=== PATIENT | male | born 1955 | race Caucasian/White ===

== ENCOUNTER 2024-10-25 13:05 | Outpatient (OUT) | payer MEDICARE, OTHER, SELFPAY ==
--- OUTSIDE RECORDS SUMMARY | 2024-10-15 14:40 | XMS_ITS | Encounter Summary ---
Author Organization [facility] Address [address] [place], [place] [id number] Care Team Providers Care Ballet Professor Name Role Phone Noemi Chu SAMUEL Primary Care Provider [phone] Source Comments In the event this information is protected by the Federal Confidentiality of Alcohol and Drug AbusePatient Records regulations: The Federal rules restrict any use of the information to criminally investigate or prosecute any alcohol or drug abuse patient.[facility] Reason for Visit * Reason Comments Prostate Cancer Anemia 3 month follow up Encounter Details Date Type Department Care Team (Latest Contact Info) Description 10/15/2024 2:40 PM EDT Visit (SP) Office Hematology/Oncology [address] [place], [place] [address] [address] Murali Christie MD [address] [place] [address] [place] [address] Malignant neoplasm of prostate (HCC) (Primary Dx); Iron deficiency anemia due to chronic blood loss; Crohn's disease of small and large intestines with complication (HCC); Esophagitis; Ulcer of ileum; Encounter for antineoplastic chemotherapy and immunotherapy Social History Tobacco Use Types Packs/Day Years Used Date Smoking Tobacco: Former Cigarettes 1 05/13/1979 - 03/13/2000 Smokeless Tobacco: Never Comments:3 cigs a day Alcohol Use Standard Drinks/Week Comments Yes 0 (1 standard drink = 0.6 oz pur e alcohol) occ PHQ-2 Answer Date Recorded PHQ-2 score 0 07/10/2024 Area Deprivation Index Answer Date Rashawn rded National Score (1-100), lower number is lower ri sk 76 09/08/2022 State Score (1-10), lower number is lower risk 6 09/08/2022 Data from: https://www.neighborhoodatlas.[facility]/. Last address used for calculation [address] [facility] 09/08/2022 Sex and Gender Information Value Date Recorded Sex Assigned at Male 08/18/2018 11:09 PM EDT Legal Sex Male 8:56 AM EST Gender Identity Male 08/18/2018 11:09 PM EDT Sexual Orientation Straight 08/18/2018 11 :09 PM EDT documented as of this encounter Last Filed Vital Signs Vital Sign Reading Time Taken Comments Blood Pressure 149/89 10/15/2024 2:56 PM EDT Pulse 75 10/15/2024 2:56 PM EDT Temperature 36.3 C (97.4 F) 10/15/2024 2:56 PM EDT Respiratory Rate 16 10/15/2024 2:56 PM EDT Oxygen Saturation 99% 10/15/2024 2:56 PM EDT Inhaled Oxygen Concentration - - Weight 76.8 kg (169 lb 5 oz) 10/15/2024 2:56 PM EDT Height 170.2 cm (5' 7.01 ) 10/15/2024 2:56 PM ED T Body Mass Index 26.51 10/15/2024 2:56 PM EDT documented in this encounter Functional Status * Are you deaf or do you have serious difficulty hearing? Answer Date of Assessment Author No 03/22/2018 3:03 PM Ibis Max RN * Are you blind or do you have serious difficulty seeing, even when wearing glasses? Answer Date of Assessment Author No 03/22/2018 3:03 PM Ibis Max RN * Do you have serious difficulty walking or climbing stairs? Answer Date of Assessment Author No 03/22/2018 3:03 PM Ibis Max RN * Do you have difficulty dressing or bathing? Answer Date of Assessment Author No 03/22/2018 3:03 PM Ibis Max RN * Because of a physical, mental, or emotional condition, do you have difficulty doing errands alone such as visiting a doctor's office or shopping? Answer Date of Assessment Author No 03/22/2018 3:03 PM Ibis Max RN documented as of this encounter Mental Status * Because of a physical, mental, or emotional condition, do you have serious difficulty concentrating, remembering, or making decisions? Answer Entry Date Author No 03/22/2018 3:03 PM Ibis Max RN documented in this encounter Patient Instructions * Patient Instructions* Murali Christie MD - 10/15/2024 3:23 PM EDT Obtain path and EGD/Coloscopy results from [facility] to call results of PSA Eligard q 6 months - due 10/15/24 RTC in 6 months for [facility] same day We discussed your recent test results and treatment plan: - Your EGD (esophagogastroduodenoscopy) performed on September 16, 2024, showed: - Esophagitis, which was biopsied. - Gastric erythema, which was biopsied. - Duodenal erosions, which were biopsied. - You have been prescribed omeprazole to protect your stomach. Please take this medication as directed. - Your colonoscopy performed the same day showed: - Ulcers in the ileum. We are awaiting further surgical pathology reports for additional information. - The duodenum biopsy showed erosive duodenitis. - The stomach biopsy showed gastric mucosa with mild chronic inflammation. We discussed your prostate cancer treatment: - Your PSA level from July 11 was undetectable (0.02), which is a positive result. - You received your scheduled Lupron (Eligard) injection today. If you experience stomachaches or discomfort from the injection, please discuss alternative injection sites with the nurse during your next visit. We discussed your abdominal and pelvic imaging: - Your CT scan from July 22 showed a stable post-operative appearance of the abdomen and pelvis. Several enlarged lymph nodes in the right lower quadrant were noted but have not substantially changedsince your prior scan in March. Continued follow-up is recommended. Next steps: - Continue taking omeprazole as prescribed. - Follow up with your barrel tester and drainer, Dr. Zamarripa, for ongoing management of your gastrointestinal findings. - Monitor for any new or worsening symptoms and notify our office if needed. - Your next PSA test will be scheduled as part of your ongoing follow-up for prostate cancer. Please let us know if you have any questions or concerns. documented in this encounter Progress Notes * Murali Christie MD - 10/15/2024 3:12 PM EDT Images from the original note were not included. NAME: [facility] NO.: [id number] DATE OF SERVICE: October 15, 2024 (Pratik) Some elements in this clinic note that are critical to medical decision making have been carefully reviewed and included from a prior clinic note dated: July 11, 2024 (Pratik) Referring Provider: Otilia Ackerman MD Additional Clinicians involved [facility]: DIAGNOSIS: Locally Recurrent CSPRCa CASE SUMMARY / ASSESSMENT: 69 year old man GG3 Andreas 7 prostate cancer diagnosed in 2018 with PSA10.38. following radical prostatectomy, had PSA nate in April 2018 but PSA had a steady rise starting in April 2020 and increasing to 0.39 in March 2022. PSMA scan in May 2022 showed very low volume disease in perivesicular/perineal region (left, 0.8 cm). He underwent CAB and Radiationto prostatic bed between June 2022 and late July 2022. He did not maintain a nate for longer than 6 months but only had a gradual rise through August 2023 at 0.03. February 2024 PSA was 0.098 and PSMA scan in March 2024 showed a left internal iliac lymphnode with uptake and otherwise no metastatic disease. Continues on ADT following RT - no additional SBRT given hx of Crohn's. Monitor for iron deficiency SUMMARIZED PLAN OF CARE: Resume oral iron. Obtain path and EGD/Coloscopy results from [facility] to call results of PSA Eligard q 6 months - due 7/1/25 RTC in 6 months for [facility] same day AI Assisted A/P: 1. Malignant neoplasm of prostate (HCC) (C61) Recent CT scan of the abdomen and pelvis on July 22 showed stable post-op appearance with severalenlarged right lower quadrant lymph nodes, unchanged from prior examination in March. PSA level on July 11 was undetectable at 0.02 ng/mL. Continue monitoring PSA levels and follow-up with oncology as needed. 2. Iron deficiency anemia due to chronic blood loss (D50.0) 3. Crohn's disease of small and large intestines with complication (HCC) (K50.819) Colonoscopy on September 16 revealed ulcers in the ileum. Awaiting surgical pathology reports. Follow-up with gastroenterology for further management based on pathology results. 4. Esophagitis (K20.90) EGD on September 16 showed esophagitis, which was biopsied. Started on omeprazole to protect the stomach. 5. Ulcer of ileum (K63.3) Colonoscopy on September 16 revealed ulcers in the ileum. Awaiting surgical pathology reports. Follow-up with gastroenterology for further management based on pathology results. 6. Encounter for antineoplastic chemotherapy and immunotherapy (Z51.11) Receiving Eligard injections for prostate cancer. Patient reports experiencing abdominal pain post-injection. Administer Lupron injection. Discuss alternative injection sites with nursing staff to potentially alleviate abdominal discomfort. CASE HISTORY: Reverse Chronological Order 04/19/2024-Current - Eligard q 6 months 03/22/2024 - PSMA PET: PROSTATE: No PSMA expressing lesion in the prostatectomy bed. RADHA DISEASE: New mildly PSMA expressing subcentimeter left internal iliac lymphadenopathy. METASTATIC DISEASE: No PSMA expressing distant metastases. 02/27/2024 - PSA: 0.098 09/15/2023 - PSA: 0.03 05/31/2023 - PSA: 0.02 02/27/2023 - PSA: 0.03 08/29/2022 - PSA: <0.02 07/04/2022-08/11/2022 - Radiation to prostate bed: Dr. Ackerman 06/14/2022-03/08/2023 - Casodex 50mg daily - discontinued due to ADH withdrawal - One dose of Lupron with urology at [facility] 06/01/2022 - PSMA PET: ABDOMEN/PELVIS: Solitary 0.8 cm intensely avid LEFT perivesicular/perineal lesion, as described. Notracer avid abdominopelvic lymphadenopathy. HEAD/NECK, CHEST, & BONES/SOFT TISSUES: No PSMA-expressing lesion suspicious for metastasis. 04/12/2022 - PSA: 0.39 09/06/2021 - PSA: 0.23 06/24/2021 - NM Bone Scan: No evidence to suggest osseous metastatic disease. 2021 - PSA: 0.22 05/04/2020 - PSA: 0.06 04/15/2019 - PSA: <0.01 04/26/2018 - PSA: <0.03 03/20/2018 - Prostate and seminal vesicles, radical prostatectomy: Dr. French Garcia - Adenocarcinoma of the prostate, Andreas score 4+3=7 (Grade Group 3) with intraductal carcinoma ofthe prostate. - Tumor is confined to the prostate. - Margins of resection are positive for tumor. - Seminal vesicles are negative for tumor. 12/29/2017 - Prostate Biopsies: Prostate, right base, right mid, right apex, left base, biopsy (A, B, C, D): - Benign prostate tissue. Prostate, left mid, biopsy (E): - Prostatic adenocarcinoma, Sunray score 3+3=6, Grade Group 1, involving one of two cores (20%, 2 mm). Prostate, left apex, biopsy (F): - Benign fibromuscular stroma, no prostatic glands are present for evaluation. Comment: PIN cocktail staining is performed on part E and shows absence of p63, a basal cell marker. P504s shows diffuse positive staining. This immunoprofile, along with the histologic findings, supports the above diagnosis. 12/29/2017 - MRI Prostate: 1.6 cm left anterolateral peripheral zone lesion is concerning for clinically significant disease (PI-RADS 5). No lymphadenopathy. 08/18/2017 - PSA: 10.36 05/02/2012 - TURP: Dr. Navneet Soto at [facility] for elevated PSA Prostate gland, transurethral resection: Stromal and glandular hyperplasia HPI: Updated Visit, October 15, 2024: On 07/22/2024, a CT scan of the abdomen and pelvis revealed several enlarged right lower quadrant lymph nodes. On 09/16/2024, an EGD performed at [facility] showed esophagitis, gastric erythema, and duodenal erosions, all of which were biopsied. The patient was subsequently started on omeprazole.A colonoscopy performed the same day revealed ileal ulcers. Surgical pathology reports indicated erosive duodenitis and gastric mucosa with mild chronic inflammation. On 10/11/2024, a follow-up CT scan of the abdomen and pelvis showed a stable post-operative appearance with no substantial changes in the enlarged right lower quadrant lymph nodes compared to the prior examination in March. On 07/11/2025, a PSA test showed undetectable levels. Patient reports experiencing stomachaches following Lupron injections and inquires about alternative injection sites. Updated Visit, July 11, 2024: Yehuda returns for a follow up. He started Eligard on 04/19/2024, reports GI side effects followinghis first dose. Radiation is being reconsidered as he already has a history of lower pelvic radiation and Crohn's disease. PSA is in process - can consider adding Casodex or Abiraterone for progression. MCV & MCH are decreased - will continue to monitor for iron & folate deficiencies. Initial Visit, April 11, 2024: Yehuda Kearney presents today for a Hematology and Oncology evaluation. He is joined by his , Elsy. Yehuda is a 68 year old male who was diagnosed with prostate adenocarcinoma in 12/2017. He had a prostatectomy in 03/2018 - Sunray score 4+3=7 and Grade Group 3. His annual PSA began slowly rising in 2020 and a solitary left perivesicular/perineal lesion was seen on PSMA PET in 05/2022. He received 1 Lupron injection and started on Casodex & radiation to the prostate bed per Dr. Ackerman. He discontinued Casodex in 02/2023 due to ADH withdrawal. He had another PSMA PET earlier this month as his PSA continues to rise - showed new subcentimeter left internal iliac lymphadenopathy. He is in agreement to begin Eligard and proceed with additional radiation per Dr. Ackerman's recommendation. PMHx of Crohn's disease - has ileostomy. REVIEW OF SYSTEMS Per HPI and otherwise negative by full review of organ systems. Gastrointestinal: (+) abdominal pain ECOG PERFORMANCE STATUS: 0 PHYSICAL EXAMINATION: Vitals: BP 149/89 Pulse 75 Temp (Src) 97.4 (Temporal) Resp 16 Ht 5' 7.008 (1.70m) Wt 169lb 5 oz (76.8kg) SpO2 99% BMI 26.51 kg/(m^2). Body surface area is 1.91 meters squared. Exam limited to gross visualization where appropriate. Gen.: This is an age-appropriate patient in no acute distress. Head: Appears atraumatic with no visible lesions. Eyes: Pupils equally round and reactive to light, extraocular muscles are intact. Neck: Supple. Respiratory: Appears to be respiring comfortably. Neurologic: Nonfocal to gross visualization. Alert and oriented ??3. Psychiatric: No evidence of inappropriate anxiety or depression. Skin: Visible areas of skin without rash, lesions, wounds or petechiae. ALLERGIES: ALLERGIES No Known Allergies MEDICATIONS: ferrous sulfate 325 mg (65 mg iron) tablet atorvastatin (LIPITOR) 10 mg tablet Take 10 mg by mouth once daily. citalopram (CELEXA) 20 mg tablet Take 20 mg by mouth once daily. MULTIVITAMIN ORAL Take 1 tablet by mouth once daily. omeprazole (PRILOSEC) 20 mg capsule Take 20 mg by mouth as needed. Magnesium 250 mg tab Take 250 mg by mouth once daily. omega 3-gak-gab-fish oil 100-160-1,000 mg cap Take by mouth once daily. aspirin (ASPIR-81 ORAL) Take by mouth once daily. Cholecalciferol, Vitamin D3, 50 mcg (2,000 unit) cap Take by mouth once daily. meloxicam (MOBIC) 15 mg tablet Take 1 tablet by mouth once daily. LABORATORY VALUES: WBC (k/uL) Date Value 10/15/2024 6.25 RBC (m/uL) Date Value 10/15/2024 4.89 Hemoglobin (g/dL) Date Value 10/15/2024 13.9 Hematocrit (%) Date Value 10/15/2024 42.3 MCV (fL) Date Value 10/15/2024 86.5 MCH (pg) Date Value 10/15/2024 28.4 MCHC (g/dL) Date Value 10/15/2024 32.9 RDW-CV (%) Date Value 10/15/2024 15.5 (H) Platelet Count (k/uL) Date Value 10/15/2024 211 MPV (fL) Date Value 10/15/2024 10.5 Glucose (mg/dL) Date Value 10/15/2024 90 BUN (mg/dL) Date Value 10/15/2024 14 Creatinine (mg/dL) Date Value 10/15/2024 1.03 Sodium (mmol/L) Date Value 10/15/2024 142 Potassium (mmol/L) Date Value 10/15/2024 4.4 Chloride (mmol/L) Date Value 10/15/2024 108 (H) CO2 (mmol/L) Date Value 10/15/2024 24 Protein, Total (g/dL) Date Value 10/15/2024 6.6 Albumin (g/dL) Date Value 10/15/2024 3.8 (L) Calcium, Total (mg/dL) Date Value 10/15/2024 9.8 Alkaline Phosphatase (U/L) Date Value 10/15/2024 72 Bilirubin, Total (mg/dL) Date Value 10/15/2024 0.2 AST (U/L) Date Value 10/15/2024 24 ALT (U/L) Date Value 10/15/2024 21 PSA (ng/mL) Date Value 10/15/2024 <0.02 07/11/2024 <0.02 04/26/2018 <0.03 PSA. (no units) Date Value 02/27/2024 0.098 09/15/2023 0.03 05/31/2023 0.02 02/27/2023 0.03 08/29/2022 <0.02 DIAGNOSIS: (C61) Malignant neoplasm of prostate (HCC) (primary encounter diagnosis) Plan: COMPLETE BLOOD COUNT AND DIFFERENTIAL, COMPREHENSIVE METABOLIC PANEL, IRON AND TIBC, FERRITIN, VITAMIN B12, FOLATE, SERUM, PROSTATE-SPECIFIC ANTIGEN DIAGNOSTIC, RETICULOCYTE COUNT (D50.0) Iron deficiency anemia due to chronic blood loss Plan: COMPLETE BLOOD COUNT AND DIFFERENTIAL, COMPREHENSIVE METABOLIC PANEL, IRON AND TIBC, FERRITIN, VITAMIN B12, FOLATE, SERUM, PROSTATE-SPECIFIC ANTIGEN DIAGNOSTIC, RETICULOCYTE COUNT (K50.819) Crohn's disease of small and large intestines with complication (HCC) Plan: COMPLETE BLOOD COUNT AND DIFFERENTIAL, COMPREHENSIVE METABOLIC PANEL, IRON AND TIBC, FERRITIN, VITAMIN B12, FOLATE, SERUM, PROSTATE-SPECIFIC ANTIGEN DIAGNOSTIC, RETICULOCYTE COUNT (K20.90) Esophagitis (K63.3) Ulcer of ileum (Z51.11, Z51.12) Encounter for antineoplastic chemotherapy and immunotherapy PAST MEDICAL HISTORY Diagnosis Date Anal fissure 1995 Crohn disease (HCC) s/p surgery Hyperlipidemia Hypertension Prostate cancer (HCC) PAST SURGICAL HISTORY Procedure Laterality Date COLONOSCOPY FLX DX W/COLLJ SPEC WHEN PFRMD 2000 c scope in ileostomy site due to closure of anus in 1995 PAST SURGICAL HISTORY OF total colectomy + ileostomy (1988,1990, 1995 RADICAL PROSTATECTOMY 03/20/2018 robotic perineal approach Social History Tobacco Use Smoking status: Former Current packs/day: 0.00 Types: Cigarettes Start date: 03/13/1980 Quit date: 03/13/2000 Years since quittin.6 Smokeless tobacco: Never Tobacco comments: 3 cigs a day Vaping Use Vaping status: Never Used Substance Use Topics Alcohol use: Yes Comment: occ Drug use: Not Currently FAMILY HISTORY Problem Relation Age of Onset Ischemic Heart Disease Father hx aortic aneurysm Coronary Artery Disease Father Hypertension Father Hypertension Mother I spent a total of 30 minutes on the date of the service which included preparing to see the patient, xfks-go-boch patient care, completing clinical documentation, obtaining and/or reviewing separately obtained history, performing a medically appropriate examination, counseling and educating the pat ient/family/caregiver, ordering medications, tests, or procedures, communicating with other HCPs (not separately reported), independently interpreting results (not separately reported), communicatingresults to the patient/family/caregiver, and care coordination (not separately reported). Murali Christie MD, CPE Hematology and Oncology Services Provided at: [place], [place] CC: Noemi Chu CNP, LADLE REPAIRER [address] [address] documented in this encounter Plan of Treatment Upcoming Encounters Date Type Department Care Team (Latest Contact Info) Description 01/29/2025 11:45 AM EDT Office Visit Radiation Oncology [address] [place] [address] Mohsen Ackerman MD [address] [place] [address] 6 month follow up 04/14/2025 2:30 PM EST Office Visit [facility] [address] [place] [place] [address] 6 month follow up with lab and Eligard inj 04/14/2025 2:40 PM EST Visit (SP) Office Hematology/Oncology [address] [place] [place] [address] Murali Christie MD [address] [place] [place] [address] 6 month follow up with lab and Eligard inj 04/14/2025 3:00 PM EST [facility] Hematology/Oncology [address] [place] [address] [place] [address] 6 month follow up with lab and Eligard inj Scheduled Orders Name Type Priority Associated Diagnoses Orde r Schedule COMPLETE BLOOD COUNT AND DIFFERENTIAL Lab Routine Malignant neoplasm of prostate (HCC) Iron deficiency anemia due to chronic blood loss Crohn's disease of small and large intestines with complication (HCC) Expected: 04/17/2025 (Approximate), Expires: 10/15/2025 COMPREHENSIVE METABOLIC PANEL Lab Routine Malignant neoplasm of prostate (HCC) Iron deficiency anemia due to chronic blood loss Crohn's disease of small and large intestines with complication (HCC) Expected: 04/17/2025 (Approximate), Expires: 10/15/2025 IRON AND TIBC Lab Routine Malignant neoplasm of prostate (HCC) Iron deficiency anemia due to chronic blood loss Crohn's disease of small and large intestines with complication (HCC) Expected: 04/17/2025 (Approximate), Expires: 10/15/2025 FERRITIN Lab Routine Malignant neoplasm of prostate (HCC) Iron deficiency anemia due to chronic blood loss Crohn's disease of small and large intestines with complication (HCC) Expected: 04/17/2025 (Approximate), Expires: 10/15/2025 VITAMIN B12 Lab Routine Malignant neoplasm of prostate (HCC) Iron deficiency anemia due to chronic blood loss Crohn's disease of small and large intestines with complication (HCC) Expected: 04/17/2025 (Approximate), Expires: 10/15/2025 FOLATE, SERUM Lab Routine Malignant neoplasm of prostate (HCC) Iron deficiency anemia due to chronic blood loss Crohn's disease of small and large intestines with complication (HCC) Expected: 04/17/2025 (Approximate), Expires: 10/15/2025 PROSTATE-SPECIFIC ANTIGEN DIAGNOSTIC Lab Routine Malignant neoplasm of prostate (HCC) Iron deficiency anemia due to chronic blood loss Crohn's disease of small and large intestines with complication (HCC) Expected: 04/17/2025 (Approximate), Expires: 07/17/2025 RETICULOCYTE COUNT Lab Routine Malignant neoplasm of prostate (HCC) Iron deficiency anemia due to chronic blood loss Crohn's disease of small and large intestines with complication (HCC) Expected: 04/17/2025 (Approximate), Expires: 07/17/2025 documented as of this encounter Visit Diagnoses Diagnosis Malignant neoplasm of prostate (HCC)- Primary Malignant neoplasm of prostate Iron deficiency anemia due to chronic blood loss Iron deficiency anemia secondary to blood loss (chronic) Crohn's disease of small and large intestines with complication (HCC) Esophagitis Esophagitis, unspecified Ulcer of ileum Ulceration of intestine Encounter for antineoplastic chemotherapy and immunotherapy Encounter for antineoplastic chemotherapy documented in this encounter Care Teams Ballet Professor Relationship Specialty Start Date End Date Noemi Chu CNP [address] [facility] [address] [place] [address] PCP - General Family Medicine 11/10/17 documented as of this encounter
--- OUTSIDE RECORDS SUMMARY | 2024-10-15 15:00 | XMS_ITS | Encounter Summary ---
Author Organization [facility] Address [address] [place], [place] [id number] Care Team Providers Care Obgyn Hospitalist Physician Name Role Phone Noemi Chu SAMUEL Primary Care Provider [phone] Source Comments In the event this information is protected by the Federal Confidentiality of Alcohol and Drug AbusePatient Records regulations: The Federal rules restrict any use of the information to criminally investigate or prosecute any alcohol or drug abuse patient.[facility] Reason for Visit * Martin Prior Authorization (Routine) - Authorized Specialty Diagnoses / Procedures Referred By Contkatie t Referred To Contact Diagnoses Malignant neoplasm of prostate (HCC) Murali Christie MD [address] [place] [address] [place] [address] Phone: tel: fax: Hematology/Oncology [address] [place], [place] [address] [address] Phone: tel: fax: Referral ID Status Reason Start Date Expiration Date V isits Requested Visits Authorized [id number] Authorized 04/11/2024 07/10/2024 99 99 Encounter Details Date Type Department Care Team (Latest Contact Info) Description 10/15/2024 3:00 PM EDT Infusion Center Hematology/Oncology [address] [facility] [place] [address] Malignant neoplasm of prostate (HCC) (Primary Dx) Social History Tobacco Use Types Packs/Day Years [...] is lower risk 6 09/08/2022 Data from: https://www.neighborhoodatlas.medicine.[facility]/. Last address used for calculation [address] [place] [address] 09/08/2022 Sex and Gender Information Value Date Recorded Sex Assigned at Male 08/18/2018 11:09 PM EDT Legal Sex Male 8:56 AM EST Gender Identity Male 08/18/2018 11:09 PM EDT Sexual Orientation Straight 08/18/2018 11 :09 PM EDT documented as of this encounter Functional Status * Are you [...] Assessment Author No 03/22/2018 3:03 PM Ibis Max, GUANAKO * Do you have difficulty dressing or [...] Entry Date Author No 03/22/2018 3:03 PM EST Ibis Luong RN documented in this encounter Plan of Treatment Upcoming Encounters Date Type Department Care Team (Latest Contact Info) Description 01/29/2025 11:45 AM EDT Office Visit Radiation Oncology [address] [place] [address] [place] [address] Mohsen Ackerman MD [address] [place] [address] [place] [address] 6 month follow up 04/14/2025 2:30 PM EST Office Visit [facility] [address] [place] [address] [place] [address] 6 month follow up with lab and Eligard inj 04/14/2025 2:40 PM EST Visit (SP) Office Hematology/Oncology [address] [place] [address] [place] [address] Murali Christie MD [address] [place] [address] [place] [address] 6 month follow up with lab and Eligard inj 04/14/2025 3:00 PM EST [facility] Hematology/Oncology [address] [place] [address] [place] [address] 6 month follow up with lab and Eligard inj documented as of this encounter Visit Diagnoses Diagnosis Malignant neoplasm of prostate (HCC)- Primary Malignant neoplasm of prostate documented in this encounter Administered Medications Inactive Administered Medications - up to 3 most recent administrations Medication Order MAR Action Action Date Dose Rate Site leuprolide 45 mg injection (ELIGARD) 45 mg, SUBCUTANEOUS, ONCE, 1 dose, On Mon10/15/24 at 1530, Hazardous Chemotherapy Drug: Use appropriate PPE.Indications:Malignant neoplasm of prostate (HCC) Given 10/15/2024 3:32 PM EDT 45 mg Buttocks, Left documented in this encounter Care Teams Obgyn Hospitalist Physician Relationship Specialty Start Date End Date Noemi Chu CNP [address] [place] [address] PCP - General Family Medicine 11/10/17 documented as of this encounter
--- OUTSIDE RECORDS SUMMARY | 2024-10-25 13:07 | XMS_ITS | Encounter Summary ---
Author Organization [facility] Address [address] [facility] [place] [address] Care Team Providers Care Journeyman Mechanic Name Role Phone Alba, Sekou Connolly DO Primary Care Provider No Miller AUTOMATION ENGINEERING TECHNICIAN Unavailable [phone] Encounter Details Date Type Department Care Team (Late st Contact Info) Description 12/02/2022 Abstract [facility] [address] [place] [phone] Noemi Chu NP [address] [address] Social History Tobacco Use Types Packs/Day Years Used Date Smoking Tobacco: Never Assessed Sex and Gender Information Value Date Recorded Sex Assigned at Male 02/21/2023 3:45 PM EST Legal Sex Male 6:34 PM EDT Gender Identity Male 02/21/2023 3:45 PM EST Sexual Orientation Straight 02/21/2023 3: 45 PM EST documented as of this encounter Plan of Treatment Upcoming Encounters Date Type Department Care Team (Late st Contact Info) Description 02/18/2025 11:20 AM EST Office Visit [facility] [address] [facility] [address] [place] [phone] Vandana Banuelos MD, IBCLC [address] [place], [place] [id number] documented as of this encounter Visit Diagnoses Not on filedocumented in this encounter Care Teams Journeyman Mechanic Relationship Specialty Start Date End Date Sekou Willis DO [address] [place] [address] PCP - General Family Medicine 08/23/22 No Miller, ZANE [address] [place], [place] [id number] PCP - ACO Reach 04/17/24 documented as of this encounter
--- OUTSIDE RECORDS SUMMARY | 2024-10-25 13:07 | XMS_ITS | Encounter Summary ---
Author Organization [facility] Address [facility] [place] [address] Care Team Providers Care Gift Basket Packer Name Role Phone Noemi Chu SAMUEL Primary Care Provider [phone] Source Comments In the event this information is protected by the Federal Confidentiality of Alcohol and Drug AbusePatient Records regulations: The Federal rules restrict any use of the information to criminally investigate or prosecute any alcohol or drug abuse patient.[facility] Encounter Details Date Type Department Care Team (Late st Contact Info) Description 12/23/2017 Patient Msg Medical Records [address] [place] [address] Provider, Ccf RE: Patient Registration Completed Social History Tobacco Use Types Packs/Day Years Used Date Smoking Tobacco: Former Smokeless Tobacco: Never Alcohol Use Standard Drinks/Week Comments No 0 (1 standard drink = 0.6 oz pur e alcohol) Sex and Gender Information Value Date Recorded Sex Assigned at Male 08/18/2018 11:09 PM EDT Legal Sex Male 8:56 AM EST Gender Identity Male 08/18/2018 11:09 PM EDT Sexual Orientation Straight 08/18/2018 11 :09 PM EDT documented as of this encounter Plan of Treatment Upcoming Encounters Date Type Department Care Team (Latest Contact Info) Description 01/29/2025 11:45 AM EDT Office Visit Radiation Oncology [address] [facility] [place] [address] Mohsen Ackerman MD [address] [facility] [place] [place] [address] 6 month follow up 04/14/2025 2:30 PM EST Office Visit [facility] Laboratory [address] [facility] [place] [place] [address] 6 month follow up with lab and Eligard inj 04/14/2025 2:40 PM EST Visit (SP) Office Hematology/Oncology [address] [facility] [place] [place] [address] Murali Christie MD [address] [facility] [place] [place] [address] 6 month follow up with lab and Eligard inj 04/14/2025 3:00 PM EST [facility] Center Hematology/Oncology [address] [place] [address] [place] [address] 6 month follow up with lab and Eligard inj documented as of this encounter Visit Diagnoses Not on filedocumented in this encounter Care Teams Gift Basket Packer Relationship Specialty Start Date End Date Noemi Chu CNP [address] [place] [address] PCP - General Family Medicine 11/10/17 documented as of this encounter
--- OUTSIDE RECORDS SUMMARY | 2024-10-25 13:07 | XMS_ITS | Encounter Summary ---
Author Organization [facility] Address [facility] [place] [address] Care Team Providers Care Lithographic Retoucher Apprentice Name Role Phone Noemi Chu SAMUEL Primary Care Provider [phone] Source Comments In the event this information is protected by the Federal Confidentiality of Alcohol and Drug AbusePatient Records regulations: The Federal rules restrict any use of the information to criminally investigate or prosecute any alcohol or drug abuse patient.[facility] Encounter Details Date Type Department Care Team (Late st Contact Info) Description 12/26/2017 Patient Msg [facility] [address] [place] [id number] Bernice, Joan, DANIEL pre procedure instructions Social History Tobacco Use Types Packs/Day Years [...] AM EDT Office Visit Radiation Oncology [address] [place] [address] Mohsen Ackerman MD [address] [place] [address] [place] [address] 6 month follow up 04/14/2025 2:30 PM EST Office Visit [facility] [address] [place] [address] [place] [address] 6 month follow up with lab and Eligard inj 04/14/2025 2:40 PM EST Visit (SP) Office Hematology/Oncology [address] [place] [address] [place] [address] Murali Christie MD [address] [place] [address] [place] [address] 6 month follow up with lab and Eligard inj 04/14/2025 3:00 PM EST Infusion Center Hematology/Oncology [address] [place] [address] [place] [address] 6 month follow up with lab and Eligard inj documented as of this encounter Visit Diagnoses Not on filedocumented in this encounter Care Teams Lithographic Retoucher Apprentice Relationship Specialty Start Date End Date Noemi Chu CNP [address] [place] [address] PCP - General Family Medicine 11/10/17 documented as of this encounter
--- OUTSIDE RECORDS SUMMARY | 2024-10-25 13:07 | XMS_ITS | Encounter Summary ---
Author Organization [facility] Address [address] [place] [address] Care Team Providers Care Coach Name Role Phone Noemi Chu SAMUEL Primary Care Provider [phone] Source Comments In the event this information is protected by the Federal Confidentiality of Alcohol and Drug AbusePatient Records regulations: The Federal rules restrict any use of the information to criminally investigate or prosecute any alcohol or drug abuse patient.[facility] Encounter Details Date Type Department Care Team (Late st Contact Info) Description 01/30/2018 Get Medical Advice Urology [address] [address] French Garcia MD [address] [facility] [address] [place] [address] RE: Medication Question (Not Renewal) Social History Tobacco Use Types Packs/Day Years [...] 11:45 AM EDT Office Visit Radiation Oncology [address] [place] [address] [place] [address] Mohsen Ackerman MD [address] [place] [address] [place] [address] 6 month follow up 04/14/2025 2:30 PM EST Office Visit [facility] [address] [place] [address] [place] [address] 6 month follow up with lab and Eligard inj 04/14/2025 2:40 PM EST Visit (SP) Office Hematology/Oncology [address] [place] [address] [place] [address] Murali Christie MD [address] [place] [address] [place] [address] 6 month follow up with lab and Eligard inj 04/14/2025 3:00 PM EST Infusion Center Hematology/Oncology [address] [place] [address] [place] [address] 6 month follow up with lab and Eligard inj documented as of this encounter Visit Diagnoses Not on filedocumented in this encounter Care Teams Coach Relationship Specialty Start Date End Date Noemi Chu CNP [address] [place] [address] PCP - General Family Medicine 11/10/17 documented as of this encounter
--- OUTSIDE RECORDS SUMMARY | 2024-10-25 13:07 | XMS_ITS | Encounter Summary ---
Author Organization [facility] Address [facility] [place] [address] Care Team Providers Care Clinical Quality Manager Name Role Phone Noemi Chu SAMUEL Primary Care Provider [phone] Source Comments In the event this information is protected by the Federal Confidentiality of Alcohol and Drug AbusePatient Records regulations: The Federal rules restrict any use of the information to criminally investigate or prosecute any alcohol or drug abuse patient.[facility] Encounter Details Date Type Department Care Team (Late Contact Info) Description 02/08/2018 Patient Msg Medical Records [address] [place] [address] Provider, Ccf RE: Patient Registration Completed Social [...] AM EDT Office Visit Radiation Oncology [address] [facility] [address] Mohsen Ackerman MD [address] [facility] [address] 6 month follow up 04/14/2025 2:30 PM EST Office Visit [facility] Laboratory [address] [facility] [address] 6 month follow up with lab and Eligard inj 04/14/2025 2:40 PM EST Visit (SP) Office Hematology/Oncology [address] [facility] [address] Murali Christie MD [address] [facility] [address] 6 month follow up with lab and Eligard inj 04/14/2025 3:00 PM EST [facility] Hematology/Oncology [address] [place] [address] [place] [address] 6 month follow up with lab and Eligard inj documented as of this encounter Visit Diagnoses Not on filedocumented in this encounter Care Teams Clinical Quality Manager Relationship Specialty Start Date End Date Noemi Chu CNP [address] [place] [address] PCP - General Family Medicine 11/10/17 documented as of this encounter
--- OUTSIDE RECORDS SUMMARY | 2024-10-25 13:07 | XMS_ITS | Encounter Summary ---
Author Organization [facility] Address [address] [place] [address] Care Team Providers Care Coil Cutter Name Role Phone Sekou Willis DO Primary Care Provider [phone] No Miller CLOSING SPECIALIST Unavailable [phone] Encounter Details Date Type Department Care Team (Late st Contact Info) Description 03/17/2023 Clinisync Result Encounter [facility] External Department Unsolicited No Miller, CLOSING SPECIALIST [address] [place] [id number] Social History Tobacco Use Types Packs/Day Years Used Date Smoking Tobacco: Former Cigarettes Smokeless Tobacco: Never Comments:Smoker x 20 years b ut only smoked 3 cigs a day. Quit over 20 years ago Alcohol Use Standard Drinks/Week Comments Yes 2 (1 standard drink = 0.6 oz pure alcohol) Now 2 cans a week but lately been drinking NA Humiliation, Afraid, Rape, and Kick questionnair e Answer Date Recorded Within the last year, have y ou been afraid of your partner or ex-partner? No 02/21/2023 Within the last year, have y ou been humiliated or emotionally abused in other ways by your partner or ex-partner? No Within the last year, have y ou been kicked, hit, slapped, or otherwise physically hurt by your partner or ex-partner? No 02/21/2023 Within the last year, have y ou been raped or forced to have any kind of sexual activity by your partner or ex-partner? No 02/21/2023 Social Connection and Isolat ion Panel [NHANES] Answer Date Recorded In a typical week, how many times do you talk on the phone with family, friends, or neighbors? Never 02/21/2023 How often do you get togethe r with friends or relatives? Once a week 02/21/2023 How often do you attend chur or sikhism services? More than 4 times per year 02/21/2023 Do you belong to any clubs o r organizations such as scientologist groups, unions, fraternal or athletic groups, or school groups? No 02/21/2023 How often do you attend meet ings of the clubs or organizations you belong to? Never 02/21/2023 Are you , , di vorced, , never , or living with a partner? 02/21/2023 AUDIT-C Answer Date Recorded Q1: How often do you have a drink containing alc ohol? Monthly or less 02/21/2023 Q2: How many drinks containi ng alcohol do you have on a typical day when you are drinking? 1 or 2 02/21/2023 Q3: How often do you have si x or more drinks on one occasion? Never 02/21/2023 Overall Financial Resource Strain (CARDIA) Answe r Date Recorded How hard is it for you to pa y for the very basics like food, housing, medical care, and heating? Not hard at all 02/21/2023 PHQ-2 Answer Date Recorded Patient Health Questionnaire-2 Score 0 03/15/2023 [facility] Questionnaire Answer Date Recorded Do you feel stress - tense, restless, nervous, or anxious, or unable to sleep at night because your mind is troubled all the time - these days? Not at all 02/21/2023 Exercise Vital Sign Answer Date Recorde d On average, how many days pe r week do you engage in moderate to strenuous exercise (like a brisk walk)? 2 days 02/21/2023 On average, how many minutes do you engage in exercise at this level? 30 min 02/21/2023 Hunger Vital Sign Answer Date Recorded Within the past 12 months, y ou worried that your food would run out before you got the money to buy more. Never true 02/22/20 23 Within the past 12 months, t he food you bought just didn't last and you didn't have money to get more. Never true 02/21/2023 PRAPARE - Transportation Answer Date Re corded In the past 12 months, has l ack of transportation kept you from medical appointments or from getting medications? No 10/2022 In the past 12 months, has l ack of transportation kept you from meetings, work, or from getting things needed for daily living? No 02/21/2023 Housing Stability Vital Sign Answer Khai e Recorded In the last 12 months, was t here a time when you were not able to pay the mortgage or rent on time? No 02/21/2023 In the last 12 months, how many places have you lived? 1 02/21/2023 In the last 12 months, was t here a time when you did not have a steady place to sleep or slept in a snf (including now)? No 02/21/2023 Sex and Gender Information Value Date Recorded Sex Assigned at Male 02/21/2023 3:45 PM EST Legal Sex Male 6:34 PM EDT Gender Identity Male 02/21/2023 3:45 PM EST Sexual Orientation Straight 02/21/2023 3: 45 PM EST COVID-19 Exposure Response Date Recorded In the last 10 days, have yo u been in contact with someone who was confirmed or suspected to have Coronavirus/COVID-19? Yes 02/21/2023 4:22 PM EST documented as of this encounter Plan of Treatment Upcoming Encounters Date Type Department Care Team (Late st Contact Info) Description 02/18/2025 11:20 AM EST Office Visit [facility] [address] [place] [phone] Vandana Banuelos MD, IBCLC [address] [place] [address] documented as of this encounter Procedures Procedure Name Priority Date/Time Associated Diagnosis Comments XR CHEST (2 VW) 03/17/2023 11:22 AM EST documented in this encounter Results * XR CHEST (2 VW) (03/17/2023 11:22 AM EST) Anatomical Region Laterality Modality Other 03/17/2023 11:2 2 AM EST Narrative 03/17/2023 11:27 AM EST EXAMINATION: TWO XRAY VIEWS OF THE CHEST 03/16/2023 12:17 pm COMPARISON: 04/12/2018 HISTORY: ORDERING SYSTEM PROVIDED HISTORY: Welcome to Medicare preventive visit FINDINGS: The lungs are without acute focal process. There is no effusion or pneumothorax. The cardiomediastinal silhouette is stable. The osseous structures are stable. IMPRESSION: No acute process. Interpreted by: Sekou Sandoval MD Signed by: Sekou Sandoval MD 03/17/23 Final result Procedure Note Radiology, Radiologist, MD - 03/17/2023 EXAMINATION: TWO XRAY VIEWS OF THE CHEST 03/16/2023 12:17 pm COMPARISON: 04/12/2018 HISTORY: ORDERING SYSTEM PROVIDED HISTORY: Welcome to Medicare preventive visit FINDINGS: The lungs are without acute focal process. There is no effusion or pneumothorax. The cardiomediastinal silhouette is stable. The osseous structures are stable. IMPRESSION: No acute process. Interpreted by: Sekou Sandoval MD Signed by: Sekou Sandoval MD 03/17/23 Final result No Miller NP [facility] Final Re sult documented in this encounter Visit Diagnoses Not on filedocumented in this encounter Additional Health Concerns Assessment Noted Time PHQ-9 Depression Total Score: 0 03/15/20 23 1:00 PM EST documented as of this encounter Care Teams Coil Cutter Relationship Specialty Start Date End Date Sekou Willis DO [address] [place] [address] PCP - General Family Medicine 08/23/22 No Miller, ZANE [address] [place] [address] PCP - ACO Reach 04/17/24 documented as of this encounter
--- OUTSIDE RECORDS SUMMARY | 2024-10-25 13:07 | XMS_ITS | Encounter Summary ---
Author Organization [facility] Address [address] [place] [address] Care Team Providers Care External Grinder Tool Name Role Phone Noemi Chu ASMUEL Primary Care Provider [phone] Source Comments In the event this information is protected by the Federal Confidentiality of Alcohol and Drug AbusePatient Records regulations: The Federal rules restrict any use of the information to criminally investigate or prosecute any alcohol or drug abuse patient.[facility] Encounter Details Date Type Department Care Team (Late st Contact Info) Description 10/31/2019 Patient Msg Colorectal Surgery [address] [place] [address] Provider, Ccf CTE Results Social History Tobacco Use Types Packs/Day Years Used Date Smoking Tobacco: Former Cigarettes 1 05/13/1979 - 03/13/2000 Smokeless Tobacco: Never Comments:3 cigs a day Alcohol Use Standard Drinks/Week Comments Yes 0 (1 standard drink = 0.6 oz pur e alcohol) occ PHQ-2 Answer Date Recorded PHQ2 Score 0 03/20/2018 Sex and Gender Information Value Date Recorded [...] Ibis Max RN documented in this encounter Plan of Treatment Upcoming Encounters Date Type Department Care Team (Latest Contact Info) Description 01/29/2025 11:45 AM EDT Office Visit Radiation Oncology [address] [facility] [place] [address] Mohsen Ackerman MD [address] [place] [address] 6 month follow up 04/14/2025 2:30 PM EST Office Visit [facility] Laboratory [address] [place] [address] 6 month follow up with Pat hanson 04/14/2025 2:40 PM EST Visit (SP) Office Hematology/Oncology [address] [facility] [place] [address] Murali Christie MD [facility] [place] [address] 6 month follow up with lab and Marlon inj 04/14/2025 3:00 PM [facility] Hematology/Oncology [address] [facility] [place] [address] 6 month follow up with lab and Marlon inj documented as of this encounter Visit Diagnoses Not on filedocumented in this encounter Care Teams External Grinder Tool Relationship Specialty Start Date End Date Noemi Chu CNP [address] [place] [address] PCP - General Family Medicine 11/10/17 documented as of this encounter
--- OUTSIDE RECORDS SUMMARY | 2024-10-25 13:07 | XMS_ITS | Clinical Summary ---
Author Organization [facility] Address [address] [place] [address] Care Team Providers Care Last Greaser Name Role Phone adalgisaNoemi APRN - EVICTION SPECIALIST Primary Care Provider [phone] Allergies No known active allergies Medications lisinopril-hydro chlorothiazide (PRINZIDE;ZESTOR ETIC) 10-12.5 MG per tablet Take 1 tablet by mouth daily. Active omeprazole (PRILOSEC) 20 MG capsule Take 20 mg by mouth daily. Active Multiple Vitamins-Mineral s (THERAPEUTIC MULTIVITAMIN-MIN ERALS) tablet Take 1 tablet by mouth daily. Active atorvastatin (LIPITOR) 10 MG tablet Take 10 mg by mouth daily Active magnesium gluconate (MAGONATE) 500 MG tablet Take 250 mg by mouth daily Active citalopram (CELEXA) 10 MG tablet Take 10 mg by mouth daily Active meloxicam (MOBIC) 15 MG tablet Take 15 mg by mouth daily Active Arminto-3 Fatty Acids (FISH OIL) 1000 MG CAPS Take 3,000 mg by mouth daily Active aspirin 81 MG tablet Take 81 mg by mouth daily Active Active Problems Problem Noted Date Diagnosed Date Prostate cancer 04/13/2018 Overview (04/13/2018): Prostatectomy 03/20/18 Dr. French Garcia Adenocarcinoma Andreas 4+3 Ntjty-re-jijkier kidney injury 04/13/2018 Severe sepsis 04/13/2018 Arterial hypotension 04/12/2018 Septicemia 04/12/2018 Severe dehydration 04/12/2018 Hypotension 04/12/2018 History of prostate surgery 04/12/2018 Crohn's disease Resolved Problems Problem Noted Date Diagnosed Date Resolved Date UTI (urinary tract infection ) unable to determine if recent mckeon or procedure causitive 04/13/2018 05/13/2018 Immunizations Immunization Administration Dates Next Due Influenza, Quadv, 6 mo and o lder, IM, PF (Flulaval, Fluarix) 04/14/2018 Family History Medical History Relation Name Comments Heart Disease Father Relation Name Status Comments Father Social History Tobacco Use Types Packs/Day Years Used Date Smoking Tobacco: Former Cigarettes Q uit: 03/20/2006 Smokeless Tobacco: Never Alcohol Use Standard Drinks/Week Comments No 0 (1 standard drink = 0.6 oz pur e alcohol) Sex and Gender Information Value Date Recorded Sex Assigned at Not on file Legal Sex Male 12:17 PM EST Gender Identity Not on file Sexual Orientation Not on file Last Filed Vital Signs Vital Sign Reading Time Taken Comments Blood Pressure 126/77 04/14/2018 8:04 AM EST Pulse 64 04/14/2018 8:04 AM EST Temperature 36.2 C (97.1 F) 04/14/2018 8:04 AM EST Respiratory Rate 16 04/14/2018 8:04 AM EST Oxygen Saturation 100% 04/14/2018 8:04 AM EST Inhaled Oxygen Concentration - - Weight 69.9 kg (154 lb) 04/14/2018 12:15 AM EST Height 170.2 cm (5' 7 ) 04/12/2018 7:27 PM EST Body Mass Index 24.12 04/12/2018 7:27 PM EST Plan of Treatment Health Maintenance Due Date Last Done Comments Depression Screen 1969 Hepatitis C screen 1975 Colonoscopy 2002 Colorectal Cancer Screen 2002 FIT/FOBT: Average risk 2002 Fecal-DNA (Cologuard): Average risk 2002 Sigmoidoscopy/CT colonography 2002 Shingles vaccine (1 of 2) 2007 Prostate Specific Antigen (PSA) Screening or Monitoring 05/11/2016 05/11/2015 AAA screen 2022 Pneumococcal 50+ years Vaccine (2 of 2 - PCV) 02/23/2023 02/23/2022 Annual Wellness Visit (Medicare) 03/16/2023 COVID-19 Vaccine (3 - season) 2023 03/26/2021, 07/23/2020, 06/26/2020, Additional history exists A1C test (Diabetic or Prediabetic) 03/16/2024 03/16/2023 GFR test (Diabetes, CKD 3-4, OR last GFR 15-59) 03/16/2024 03/16/2023, 10/24/2019, 04/14/2018, Additional history exists Lipids 03/16/2024 03/16/2023, 07/09/2011 Flu vaccine (#1) 11/15/2024 02/22/2023, 12/2021, 03/26/2021, Additional history exists DTaP/Tdap/Td vaccine (3 - Td or Tdap) 11/02/2031 11/01/2021, 03/14/2010 Respiratory Syncytial Virus (RSV) or age 60 yrs+ (1 - 1-dose 75+ series) 2032 Pneumococcal 0-49 years Vaccine Discontinued 02/23/2022 Hepatitis A vaccine Aged Out No longe r eligible based on patient's age to complete this topic Hepatitis B vaccine Aged Out No longe r eligible based on patient's age to complete this topic Hib vaccine Aged Out No longer eligi ble based on patient's age to complete this topic Meningococcal (ACWY) vaccine Aged Out No longer eligible based on patient's age to complete this topic Meningococcal B vaccine Aged Out No l onger eligible based on patient's age to complete this topic Polio vaccine Aged Out No longer elig ible based on patient's age to complete this topic Procedures Procedure Name Priority Date/Time Associated Diagnosis Comments COMPREHENSIVE METABOLIC PANEL Routine 03/16/2023 12:03 PM EST LIPID PANEL Routine 03/16/2023 12:03 PM EST HEMOGLOBIN A1C Routine 03/16/2023 12:03 PM EST PSA, FREE Routine 05/11/2015 10:49 AM EST from Last 3 Months or Most Recently Relevant to Health Maintenance Results * Hemoglobin A1C (03/16/2023 12:03 PM EST) Hemoglobin A1C 5.9 4.0 - 6.0 % 03/16/2023 12:03 PM EST [employer] Estimated Avg Glucose 123 mg/dL 03/16/2023 12:03 PM EST [employer] Comment: The ADA and AACC recommend providing the estimated average glucose result to permit better patient understanding of their HBA1c result. 03/16/2023 12:0 3 PM EST 03/16/2023 12:04 PM EST No Miller YOUTH SERVICES LIBRARIAN - EVICTION SPECIALIST CHEMISTRY ORDERABLE S Final Result [facility] [address] [place] [address], [facility] [phone] [facility] [address] [place] [address], [facility] [phone] * (ABNORMAL) Lipid Panel (03/16/2023 12:03 PM EST) Cholesterol 188 0 - 199 mg/dL 03/16/2023 12:03 PM EST [employer] Comment: Cholesterol Guidelines: <200 Desirable 200-240 Borderline >240 Undesirable HDL 40(L) >40 mg/dL 03/16/2023 12:03 PM [employer] Comment: HDL Guidelines: <40 Undesirable 40-59 Borderline >59 Desirable LDL Cholesterol 100 0 - 100 mg/dL 03/16/2023 12:03 PM EST [employer] Comment: LDL Guidelines: <100 Desirable 100-129 Near to/above Desirable 130-159 Borderline >159 Undesirable Direct (measured) LDL and calculated LDL are not interchangeable tests. Chol/HDL Ratio 5.0 03/16/2023 12:03 PM EST [employer] Triglycerides 240(H) 0 - 149 mg/dL 03/16/2023 12:03 PM EST [employer] Comment: Triglyceride Guidelines: <150 Desirable 150-199 Borderline 200-499 High >499 Very high Based on AHA Guidelines for fasting triglyceride, January 2012. VLDL 48 mg/dL 03/16/2023 12:03 PM EST [employer] 03/16/2023 12:0 3 PM EST 03/16/2023 12:04 PM EST us No Miller YOUTH SERVICES LIBRARIAN - EVICTION SPECIALIST CHEMISTRY ORDERABLE S Final Result [facility] [address] [place] [address], [facility] [phone] [place] [id number] [place] [address], [facility] [phone] * (ABNORMAL) Comprehensive Metabolic Panel (03/16/2023 12:03 PM EST) Sodium 136 135 - 144 mmol/L 03/16/2023 12:[address] [facility] Potassium 4.4 3.7 - 5.3 mmol/L 03/16/2023 12:[address] [facility] Chloride 103 98 - 107 mmol/L 03/16/2023 12:[address] [facility] CO2 24 20 - 31 mmol/L 03/16/2023 12:[address] [facility] Anion Gap 9 9 - 17 mmol/L 03/16/2023 12:[address] [facility] Glucose 104(H) 70 - 99 mg/dL 03/16/2023 12:[address] [facility] BUN 18 8 - 23 mg/dL 03/16/2023 12:[address] [facility] Creatinine 1.1 0.7 - 1.2 mg/dL 03/16/2023 12:[address] [facility] Est, Glom Filt Rate >60 >60 mL/min/1.7 3m2 03/16/2023 12:[address] [facility] Comment: These results are not intended for use in patients <18 years of age. eGFR results are calculated without a race factor using the 2020 CKD-EPI equation. Careful clinical correlation is recommended, particularly when comparing to results calculated using previous equations. The CKD-EPI equation is less accurate in patients with extremes of muscle mass, extra-renal metabolism of creatine, excessive creatine ingestion, or following therapy that affects renal tubular secretion. BUN/Creatinine Ratio 16 9 - 20 03/16/2023 12:[address] [facility] Calcium 9.5 8.6 - 10.4 mg/dL 03/16/2023 12:[address] [facility] Total Protein 6.7 6.4 - 8.3 g/dL 03/16/2023 12:[address] [facility] Albumin 3.8 3.5 - 5.2 g/dL 03/16/2023 12:[address] [facility] Albumin/Globulin Ratio 1.3 1.0 - 2.5 03/16/2023 12:[address] [facility] Total Bilirubin 0.3 0.3 - 1.2 mg/dL 03/16/2023 12:[address] [facility] Alkaline Phosphatase 87 40 - 129 U/L 03/16/2023 12:[address] [facility] ALT 22 5 - 41 U/L 03/16/2023 12:[address] [facility] AST 23 <40 U/L 03/16/2023 12:[address] [facility] 03/16/2023 12:0 3 PM EST 03/16/2023 12:04 PM EST us No Miller YOUTH SERVICES LIBRARIAN - EVICTION SPECIALIST CHEMISTRY ORDERABLE S Final Result [facility] [address] [phone] * (ABNORMAL) PSA, free (05/11/2015 10:49 AM EST) PSA 7.0(H) 0.0 - 4.0 ug/L 05/12/2015 11:45 AM EST [facility] Comment: Siemens Immulite 2000 immunometric chemiluminescent assay is used. Results obtained with different assay methods or instruments cannot be used interchangeably. PSA, Free 0.6 ug/L 05/12/2015 11:45 AM EST [facility] PSA, Free Pct 8.6 % 05/12/2015 11:45 AM EST [facility] Comment: In patients with total PSA concentrations of 4-10 ng/mL, the probability of finding prostate cancer on needle biopsy in a patient age 50-59 years is: % Free PSA Probability 0-10% 49% 11-18% 27% 19-25% 18% >25 % 9% Other factors may help determine the actual risk of prostate cancer in individual patients. The free PSA percentage is an aid in distinguishing prostate cancer from benign prostatic conditions in men age 50 and older with a total PSA between 3 and 10 ng/mL and negative digital rectal examination findings. Performed at [facility] [address] [place], [place] [id number] ([phone] 05/11/2015 10:4 9 AM EST 05/11/2015 10:50 AM EST us Navneet Soto MD CHEMISTRY ORDERABLES Final Res ult [facility] [address] [place] [id number], [facility] [phone] [facility] from Last 3 Months or Most Recently Relevant to Health Maintenance Insurance [employer] SENIOR MEDICARE SUPP Advance Directives * Full Code (Latest Code Status on File) Date Activated Date Inactivated Comments 04/12/2018 7:23 PM 04/14/2018 5:41 PM Care Teams Last Greaser Relationship Specialty Start Date End Date Noemi Chu APRN - EVICTION SPECIALIST PCP - General Nurse Practitioner 04/12/18
--- OUTSIDE RECORDS SUMMARY | 2024-10-25 13:07 | XMS_ITS | Encounter Summary ---
Author Organization [facility] Address [address] [place] [address] Care Team Providers Care Densitometer Reader Name Role Phone Alba Sekou Connolly DO Primary Care Provider No Miller SALES PROGRAM MANAGER Unavailable [phone] Encounter Details Date Type Department Care Team (Late st Contact Info) Description 02/22/2023 Abstract [facility] [address] [place] [address] No Miller, SALES PROGRAM MANAGER [address] [place] [address] Social History Tobacco Use Types Packs/Day [...] How often do you attend chur or denominational services? More than 4 times per year 02/21/2023 Do you belong to any clubs o r organizations such as hinduism groups, unions, fraternal or athletic groups, or [...] and heating? Not hard at all 02/21/2023 [facility] - Occupational Stress Questionnaire Answer Date Recorded [...] place to sleep or slept in a residential (including now)? No 02/21/2023 Sex and Gender [...] 11:20 AM EST Office Visit [facility] [address] [place] [phone] Vandana Banuelos MD, IBCLC [address] [place] [address] documented as of this encounter Visit Diagnoses Not on filedocumented in this encounter Care Teams Densitometer Reader Relationship Specialty Start Date End Date Sekou Willis DO [address] [place] [address] PCP - General Family Medicine 08/23/22 No Miller, SALES PROGRAM MANAGER [address] [facility] [address] [place], [place] [id number] PCP - ACO Reach 04/17/24 documented as of this encounter
--- OUTSIDE RECORDS SUMMARY | 2024-10-25 13:07 | XMS_ITS | Encounter Summary ---
Author Organization [facility] Address [address] [place], [place] [address] Care Team Providers Care Machine Tender Name Role Phone Noemi Chu SAMUEL Primary Care Provider [phone] Source Comments In the event this information is protected by the Federal Confidentiality of Alcohol and Drug AbusePatient Records regulations: The Federal rules restrict any use of the information to criminally investigate or prosecute any alcohol or drug abuse patient.[facility] Encounter Details Date Type Department Care Team (Late st Contact [facility]) Description 03/28/2018 Abstract Urology [address] [address] Melida Gill RN [address] [address] Social History Tobacco Use Types Packs/Day Years Used Date Smoking Tobacco: Former Cigarettes 1 05/13/1979 - 03/13/2000 Smokeless Tobacco: Never Comments:3 cigs a day Alcohol Use Standard Drinks/Week Comments No 0 (1 standard drink = 0.6 oz pur e alcohol) PHQ-2 Answer Date Recorded PHQ2 Score 0 [...] 11:45 AM EDT Office Visit Radiation Oncology [place] [address] Mohsen Ackerman [place] [facility] [place] [address] 6 month follow up 04/14/2025 2:30 PM EST Office Visit [facility] [place] [address] 6 month follow up with Pat hanson 04/14/2025 2:40 PM EST Visit (SP) Office Hematology/Oncology [facility] [place] [address] Murali Christie MD [address] [place] [address] [place] [address] 6 month follow up with lab and Elijesse inj 04/14/2025 3:00 PM [facility] Hematology/Oncology [address] [place] [address] 6 month follow up with lab and Eligarrosales inj documented as of this encounter Visit Diagnoses Not on filedocumented in this encounter Care Teams Machine Tender Relationship Specialty Start Date End Date Noemi Chu CNP [address] [place] [address] PCP - General Family Medicine 11/10/17 documented as of this encounter
--- OUTSIDE RECORDS SUMMARY | 2024-10-25 13:07 | XMS_ITS | Encounter Summary ---
Author Organization [facility] Address [address] [place] [address] Care Team Providers Care Overhead Crane Technician Name Role Phone Noemi Chu SAMUEL Primary Care Provider [phone] Source Comments In the event this information is protected by the Federal Confidentiality of Alcohol and Drug AbusePatient Records regulations: The Federal rules restrict any use of the information to criminally investigate or prosecute any alcohol or drug abuse patient.[facility] Encounter Details Date Type Department Care Team (Late st Contact Info) Description 01/13/2018 Get Medical Advice Urology [address] [place] [address] Herve Zamora MD [address] [address] RE: Upcoming Appointment Question Social History Tobacco Use Types Packs/Day Years [...] AM EDT Office Visit Radiation Oncology [address] [facility] [place] [address] Mohsen Ackerman MD [address] [facility] [place] [address] 6 month follow up 04/14/2025 2:30 PM EST Office Visit [facility] [address] [facility] [place] [address] 6 month follow up with lab and Eligard inj 04/14/2025 2:40 PM EST Visit (SP) Office Hematology/Oncology [address] [place] [address] [place] [address] Murali Christie MD [address] [facility] [place] [address] 6 month follow up with lab and Eligard inj 04/14/2025 3:00 PM EST [facility] Hematology/Oncology [address] [place] [address] [place] [address] 6 month follow up with lab and Eligard inj documented as of this encounter Visit Diagnoses Not on filedocumented in this encounter Care Teams Overhead Crane Technician Relationship Specialty Start Date End Date Noemi Chu CNP [address] [place] [address] PCP - General Family Medicine 11/10/17 documented as of this encounter
--- OUTSIDE RECORDS SUMMARY | 2024-10-25 13:07 | XMS_ITS | Encounter Summary ---
Author Organization [facility] Address [address] [facility] [place] [address] Care Team Providers Care Hand Brush Filler Name Role Phone AlbaSekou sandoval Mohsen MARROQUIN Primary Care Provider No Miller ASSET PROTECTION ASSISTANT Unavailable [phone] Encounter Details Date Type Department Care Team (Late st Contact Info) Description 11/29/2022 Orders Only [facility] [address] [place] [phone] Noemi Chu NP [address] [address] Social History Tobacco Use Types [...] [facility] [address] [place] [phone] Vandana Banuelos MD, IBCLC [address] [place], [place] [phone] documented as of this encounter Visit Diagnoses Not on filedocumented in this encounter Care Teams Hand Brush Filler Relationship Specialty Start Date End Date Sekou Willis DO [address] [place] [address] PCP - General Family Medicine 08/23/22 No Miller, ZANE [address] [place], [place] [phone] PCP - ACO Reach 04/17/24 documented as of this encounter
--- OUTSIDE RECORDS SUMMARY | 2024-10-25 13:07 | XMS_ITS | Encounter Summary ---
Author Organization [facility] Address [facility] [place] [address] Care Team Providers Care President + Publisher Name Role Phone Noemi Chu SAMUEL Primary Care Provider [phone] Source Comments In the event this information is protected by the Federal Confidentiality of Alcohol and Drug AbusePatient Records regulations: The Federal rules restrict any use of the information to criminally investigate or prosecute any alcohol or drug abuse patient.[facility] Encounter Details Date Type Department Care Team (Late st Contact Info) Description 11/18/2018 Patient Msg Medical Records [address] [place] [id number] Provider, [facility] Prescribed Patient Education Video(s) Social History Tobacco Use Types Packs/Day Years [...] AM EDT Office Visit Radiation Oncology [address] [facility] [place] [place] [address] Mohsen Ackerman MD [address] [place] [address] 6 month follow up 04/14/2025 2:30 PM EST Office Visit [facility] [address] [place] [address] 6 month follow up with Pat hanson 04/14/2025 2:40 PM EST Visit (SP) Office Hematology/Oncology [address] [facility] [place] [place] [address] Murali Christie MD [address] [place] [address] 6 month follow up with lab and Elijesse inj 04/14/2025 3:[address] [facility] Hematology/Oncology [address] [place], [place] [phone] 6 month follow up with lab and Elisuzetted inj documented as of this encounter Visit Diagnoses Not on filedocumented in this encounter Care Teams President + Publisher Relationship Specialty Start Date End Date Noemi Chu CNP [address] [place] [address] PCP - General Family Medicine 11/10/17 documented as of this encounter
--- OUTSIDE RECORDS SUMMARY | 2024-10-25 13:07 | XMS_ITS | Encounter Summary ---
Author Organization [facility] Address [address] [place], [place] [id number] Care Team Providers Care Upholstery Handler Name Role Phone Noemi Chu SAMUEL Primary Care Provider [phone] Source Comments In the event this information is protected by the Federal Confidentiality of Alcohol and Drug AbusePatient Records regulations: The Federal rules restrict any use of the information to criminally investigate or prosecute any alcohol or drug abuse patient.[facility] Reason for Visit * Reason Comments Nm Pet Request Encounter Details Date Type Department Care Team (Late Contact Info) Description 03/06/2024 Telephone [address] Appts [address] [facility] [place] [address] Mohsen Ackerman MD [address] [place] [address] [place] [address] Nm Pet Request Social History Tobacco Use Types Packs/Day Years Used Date Smoking Tobacco: Former Cigarettes 1 05/13/1979 - 03/13/2000 Smokeless Tobacco: Never Comments:3 cigs a day Alcohol Use Standard Drinks/Week Comments Yes 0 (1 standard drink = 0.6 oz pur e alcohol) occ PHQ-2 Answer Date Recorded PHQ-2 score 0 03/06/2024 Area Deprivation Index Answer Date Rashawn rded National Score (1-100), lower number is lower ri sk 76 09/08/2022 State Score (1-10), lower number is lower risk 6 09/08/2022 Data from: https://www.neighborhoodatlas.medicine.[facility]/. Last address used for calculation [address] [facility] 09/08/2022 Sex and Gender Information Value [...] Ibis Max RN documented in this encounter Miscellaneous Notes * Telephone Encounter - Paula Ashby RN - 03/06/2024 4:35 PM EST [facility] Comments for Customer Care Coordinator: Megan Wheeler the patient need anesthesia: NO Primary Insurance: Medicare B Effective Date: 04-17-22 Date of Initial PET: N/A Cancer Type: Prostate cancer Date of Subsequent PET scan: S1 Pending PET Scan Related to Transplant: N/A ABN Required: No Diagnosis: Malignant neoplasm of prostate (HCC) [C61] Initial/Subsequent: Subsequent Pathology: Prostate adenocarcinoma, initial PSA 11.67, biopsy [place] score 3 + 3 = 6 (grade group 1), clinical stage T1c, N0, M0, stage IIA Labs: 02-27-24 PSA 0.098 09-15-23 PSA 0.03 Clinical Notes Reviewed: 03-06-24 Rad Onc Date of last: Radical Prostatectomy: March, RADIATION SUMMARY: DATES OF TREATMENT: 07/04/22-08/11/22 AREA TREATED: Prostate bed + boost DELIVERED DOSE: Area: prostate bed 6000cGy in 24 fractions, 2Arcs, VMAT 10MV DELIVERED DOSE: Area: Prostate bed boost 750cGy in 3 fractions, 2Arcs, VMAT, 10MV TOTAL: 6750cGy Additional Information/Imagin06-01-22 [id number] Initial:No Subsequent: Yes. Date of Last Image: 06-01-22 Scan: Positive Isotope used: [id number] Positive Scan Schedule as place of last (DOS) MC or Region Negative Scan Schedule at ANY [facility] site requested Isotope used: Region F-18 flotufolastat,18F flotufolastat Posluma MC GA68 [facility] PET [id number] (Gallium GA-68 Gozetotide) (6 mCi) [id number] - MC Posluma (Flotufolastat F18) (8mCi), [id number] - Region Auth#: no precert needed Date Range: NPI: Member ID: Medicare Site/Contact: Case/Ref#: Notes: Route to MC or Requested Scheduling Pool: P PET PALLIATIVE CARE PHYSICIAN , P [facility] CLERICAL POOL([place]), P MEGAN SPORTS MARKETING SPECIALIST * Telephone Encounter - Zeina Patel - 03/06/2024 10:53 AM EST This form is used for MAIN CAMPUS APPOINTMENTS ONLY. Is this request for a Main [place] PET scan appointment? Yes: Car Wrecker: BALTAZAR Perla Requesting Person (Last Name, First Name): Dr. Ackerman Area Code + Phone/Pager: [phone] Who do we call to schedule this appointment? Other Contact: [facility] PET in [place], Route to Jumana Merle to schedule. Requesting Staff Dr. Ackerman Area Code + Phone/Pager: [phone] PET Orders (A delay in scheduling will result if the orders are not present at time of review): Internal ADDITIONAL ACTION MAY BE REQUIRED IF PATIENTS OON INSURANCE OR SELF PAY COVERAGE HAS NOT BEEN CLEARED FOR REQUESTED APPOINTMENT. Scheduling: PETRONA: As soon as insurance will allow What account will this PET appointment be linked to? P/F Type of PET: Oncology: Are there additional diagnostic CT scans required to be done at time of PET scan? No Is the request for a PET MR ? No What account will diagnostic testing appointment be linked to? P/F Will the patient need anesthesia? NO Send requests to P COORD REVIEW MC documented in this encounter Plan of Treatment Upcoming Encounters Date Type Department Care Team (Latest Contact Info) Description 01/29/2025 11:45 AM EDT Office Visit Radiation Oncology [facility] [place] [address] Mohsen Ackerman MD [address] [place] [address] 6 month follow up 04/14/2025 2:30 PM EST Office Visit [facility] [address] [place] [address] 6 month follow up with lab and Elisuzetted inj 04/14/2025 2:40 PM EST Visit (SP) Office Hematology/Oncology [address] [place] [address] Murali Christie MD [address] [place] [address] 6 month follow up with lab and Eligard inj 04/14/2025 3:00 PM EST [facility] Hematology/Oncology [address] [place] [address] 6 month follow up with lab and Marlon hanson documented as of this encounter Visit Diagnoses Not on filedocumented in this encounter Care Teams Upholstery Handler Relationship Specialty Start Date End Date Noemi Chu, SAMUEL [address] [facility] [address] [place] [id number] PCP - General Family Medicine 11/10/17 documented as of this encounter
--- OUTSIDE RECORDS SUMMARY | 2024-10-25 13:07 | XMS_ITS | Clinical Summary ---
Author Organization [facility] Address [address] [place], [place] [id number] Care Team Providers Care Administrative Law Judge Name Role Phone Noemi Chu Angeles BAKER Primary Care Provider [phone] Allergies No known active allergies Medications atorvastatin (LIPITOR) 10 mg tablet Take 10 mg by mouth once daily. Active citalopram (CELEXA) 20 mg tablet Take 20 mg by mouth once daily. 8 Active MULTIVITAMIN ORAL Take 1 tablet by mouth once daily. Active omeprazole (PRILOSEC) 20 mg capsule Take 20 mg by mouth as needed. Active Magnesium 250 mg tab Take 250 mg by mouth once daily. Active omega 1-jmb-ssb-fish oil 100-160-1,000 mg cap Take by mouth once daily. Active aspirin (ASPIR-81 ORAL) Take by mouth once daily. Active Cholecalciferol , Vitamin D3, 50 mcg (2,000 unit) cap Take by mouth once daily. Active ferrous sulfate 325 mg (65 mg iron) tablet 5 Active meloxicam (MOBIC) 15 mg tablet Take 1 tablet by mouth once daily. 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 urethral stricture 9 Crohn's disease with complication 02/02/2018 Overview (02/02/2018): Added automatically from request for surgery [id number] Hypertension 02/02/2018 Overview (02/02/2018): Added automatically from request for surgery [id number] Malignant neoplasm of prostate 02/02/2018 Overview (02/02/2018): Added automatically from request for surgery [id number] HTN (hypertension) 11/10/2017 Hypercholesteremia 11/10/2017 Crohn disease 11/10/2017 Overview (11/10/2017): s/p colectomy 1995, well controlled Rising PSA level 11/08/2017 Hyperlipidemia Resolved Problems Problem Noted Date Diagnosed Date Resolved Date Prostate CA 02/02/2018 06/08/2023 Overview (02/02/2018): Added automatically from request for surgery [id number] Prostate cancer 06/08/2023 Encounters Date Type Department Care Team Description 10/15/2024 3:[address] [facility] Hematology/Oncology [address] [place] [address] [place] [address] Malignant neoplasm of prostate (HCC) (Primary Dx) 10/15/2024 2:40 PM EDT Visit (SP) Office Hematology/Oncology [address] [place] [address] [place] [address] Murali Christie MD Malignant neoplasm of prostate (HCC) (Primary Dx); Iron deficiency anemia due to chronic blood loss; Crohn's disease of small and large intestines with complication (HCC); Esophagitis; Ulcer of ileum; Encounter for antineoplastic chemotherapy and immunotherapy 10/15/2024 Telephone Cancer Appts [address] [place] [address] Murali Christie MD Results 10/15/2024 Travel 10/08/2024 Travel 07/30/2024 1:00 PM EDT Office Visit Radiation Oncology [address] [place] [address] [place] [address] Mohsen Ackerman MD Malignant neoplasm of prostate (HCC) (Primary Dx) from Last 3 Months Immunizations Immunization Administration Dates Next Due COVID-19 original vaccine, a ge 5 yr - 11 yr, monovalent (Telelogos) 07/23/2020,06/25/2020 COVID-19 original vaccine, f ull dose, monovalent (MODERNA) 07/23/2020,06/26/2020 influenza (HD-IIV3) vaccine, age 65+ yr, high dose, trivalent, PF (FLUZONE HIGH-DOSE) 02/19/2024 influenza (HD-IIV4) vaccine, age 65+ yr, high dose, quadrivalent, PF (FLUZONE HIGH-DOSE) 02/22/2023 influenza (IIV4) vaccine, ag e 6 mo - 64 yr, quadrivalent, PF (AFLURIA, FLUARIX, FLULAVAL, FLUZONE) 02/23/2022,03/18/2019,04/14/2018,04/28 influenza (IIV4) vaccine, qu adrivalent (AFLURIA, FLULAVAL, FLUZONE) 02/23/2017,12/28/2015 influenza (RIV4) vaccine, re combinant, quadrivalent, PF (FLUBLOK) 03/26/2021 influenza vaccine, unspecifi ed formulation 02/22/2023,02/23/2022,03/26/2021,03/16,03/18/2019,04/14/2018,02/23/2017 ,12/28/2015,04/28/2015 pneumococcal polysaccharide (PPV23) vaccine, 23 valent (PNEUMOVAX 23) 02/23/2022 tetanus diphtheria pertussis (Tdap) vaccine, age 7+ yr (ADACEL, BOOSTRIX) 11/01/2021,03/14/2010 Family History Medical History Relation Comments Coronary Artery Disease Father Hypertension Father Ischemic Heart Disease Father hx aortic aneurysm Hypertension Mother Relation Status Comments Father Mother Social History Tobacco Use Types Packs/Day Years Used Date Smoking Tobacco: Former Cigarettes 1 05/13/1979 - 03/13/2000 Smokeless Tobacco: Never Tobacco Cessation:Counseling Given: Not Answered Comments:3 cigs a day Alcohol Use Standard Drinks/Week Comments Yes 0 (1 standard drink = 0.6 oz pur e alcohol) occ PHQ-2 Answer Date Recorded PHQ-2 score 0 07/10/2024 Area Deprivation Index Answer Date Rashawn rded National Score (1-100), lower number is lower ri sk 76 09/08/2022 State Score (1-10), lower number is lower risk 6 09/08/2022 Data from: https://www.neighborhoodatlas.[facility]/. Last address used for calculation [address] [facility] 09/08/2022 Sex and Gender Information Value Date Recorded Sex Assigned at Male 08/18/2018 11:09 PM EDT Legal Sex Male 8:56 AM EST Gender Identity Male 08/18/2018 11:09 PM EDT Sexual Orientation Straight 08/18/2018 11 :09 PM EDT Last Filed Vital Signs Vital Sign Reading [...] Mass Index 26.51 10/15/2024 2:56 PM EDT Plan of Treatment Upcoming Encounters Date Type Department Care Team (Latest Contact Info) Description 01/29/2025 11:45 AM EDT Office Visit Radiation Oncology [address] [place] [address] [place] [address] Mohsen Ackerman MD [address] [place] [address] [place] [address] 6 month follow up 04/14/2025 2:30 PM EST Office Visit [facility] [address] [place] [address] [place] [address] 6 month follow up with Pat hanson 04/14/2025 2:40 PM EST Visit (SP) Office Hematology/Oncology [address] [place] [address] [place] [address] Murali Christie MD [address] [place] [address] [place] [address] 6 month follow up with lab and Marlon hanson 04/14/2025 3:00 PM [facility] Hematology/Oncology [address] [place] [address] 6 month follow up with lab and Marlon hanson Health Maintenance Due Date Last Done Comments Abdominal Aortic Aneurysm Screening 1957 Annual PCP Team Chronic Dise ase Visit 1975 Anxiety Screening 1975 Depression Screening 1975 Hepatitis C Screening 1975 CT Colonography 2002 Cologuard (FIT-DNA) 2002 Colonoscopy 2002 Colorectal Cancer Screening 2002 Fecal Occult Blood 2002 Sigmoidoscopy 2002 Shingrix Vaccine (1 of 2) 2007 RSV Vaccine (1 - Risk 60-74 years 1-dose series) 2017 Medicare Annual Wellness Visit 04/17/2022 Pneumococcal Vaccine: 50+ (2 of 2 - PCV) 02/23/2023 02/23/2022 Covid-19 Vaccine (5 - 2023-2 5 season) 2023 06/28/2023, 03/26/2021, 07/23/2020, Additional history exists Advance Directive Discussion 04/17/2024 Influenza Vaccine (#1) 2024 , 02/22/2023, 02/22/2023, Additional history exists Diabetes Screening 10/16/2027 10/15/2024, 0 07/11/2024, 02/10/2024, Additional history exists Lipid Screening 03/16/2028 03/16/2023 Prostate Cancer Screening Discussion 10/15/2029 10/15/2024, 07/11/2024, 02/27/2024, Additional history exists DTaP,Tdap,Td Vaccine (3 - Td or Tdap) 11/02/2031 11/01/2021, 03/14/2010 Procedures Procedure Name Priority Date/Time Associated Diagnosis Comments EXTERNAL PROCEDURE 10/16/2024 10 :23 AM EDT EXTERNAL LAB 10/16/2024 10:23 AM EDT FOLATE SERUM Routine 10/15/2024 2:07 PM EDT Malignant neoplasm of prostate (HCC) Iron deficiency anemia due to chronic blood loss VITAMIN B12 BLOOD Routine 10/15/2024 2:0 7 PM EDT Malignant neoplasm of prostate (HCC) Iron deficiency anemia due to chronic blood loss FERRITIN BLD Routine 10/15/2024 2:07 PM EDT Malignant neoplasm of prostate (HCC) Iron deficiency anemia due to chronic blood loss IRON + TIBC Routine 10/15/2024 2:07 PM EDT Malignant neoplasm of prostate (HCC) Iron deficiency anemia due to chronic blood loss COMPREHENSIVE METABOLIC PANEL Routine 10/15/2024 2:07 PM EDT Malignant neoplasm of prostate (HCC) Iron deficiency anemia due to chronic blood loss CBC + DIFF Routine 10/15/2024 2:07 PM EDT Malignant neoplasm of prostate (HCC) Iron deficiency anemia due to chronic blood loss PSA/PROSTSPECAG DIAG Routine 10/15/2024 2:07 PM EDT Malignant neoplasm of prostate (HCC) Iron deficiency anemia due to chronic blood loss from Last 3 Months Results * EXTERNAL PROCEDURE (10/16/2024 10:23 AM EDT) us External Provider PA-C PROCEDURE Final Res ult * EXTERNAL LAB (10/16/2024 10:23 AM EDT) us External Provider PA-C LABORATORY Final Res ult * VITAMIN B12 (10/15/2024 2:07 PM EDT) Vitamin B12 385 232 - 1,245 pg/mL 10/16/2024 1:15 AM EDT [facility] Blood BLOOD SPECIMEN / Unknown Venipuncture / Unknown 10/15/2024 2:07 PM EDT 10/15/2024 2:07 PM EDT us Murali Christie MD LABORATORY Final Result Performing Organization Address City/[facility]/ZIP Co de Phone Number [facility] [address] [address], [place] * PROSTATE-SPECIFIC ANTIGEN DIAGNOSTIC (10/15/2024 2:07 PM EDT) PSA <0.02 <2.60 ng/mL 10/16/2024 3:49 AM EDT [facility] Comment:Total PSA test metho dology used is the Electrochemiluminescence Immunoassay by [employer]. Total PSA values by differing methodologies cannot be interchanged. Blood BLOOD SPECIMEN / Unknown Venipuncture / Unknown 10/15/2024 2:07 PM EDT 10/15/2024 2:07 PM EDT us Murali Christie MD LABORATORY Final Result Performing Organization Address [facility] Co de Phone Number [facility] [address] [address], [place] * (ABNORMAL) IRON AND TIBC (10/15/2024 2:07 PM EDT) Iron 41 41 - 186 ug/dL 10/16/2024 12:53 AM EDT [facility] TIBC 291 232 - 386 ug/dL 10/16/2024 12:53 AM EDT [facility] Transferrin Saturation 14.1(L) 15.0 - 57.0 % 10/16/2024 12:53 AM EDT [facility] Blood BLOOD SPECIMEN / Unknown Venipuncture / Unknown 10/15/2024 2:07 PM EDT 10/15/2024 2:07 PM EDT us Murali Christie MD LABORATORY Final Result Performing Organization Address City/[facility]/ZIP Co de Phone Number [facility] [address] [address], [place] * FOLATE, SERUM (10/15/2024 2:07 PM EDT) Pathologist [facility] Folate >20.0 >4.7 ng/mL 10/16/2024 1:15 AM EDT [facility] Comment: A result of > 20 ng/mL is not necessarily indicative of a pathologic or treatable condition: it reflects a limitation of the test methodology. Assay reference range: 4.8 to 24.2 ng/mL. Suitable for detection of folate deficiency. Reference: Folate III (Folate III) [package insert V 1.0 Turkmen]. [employer], [place], [place]: February 2015. Blood BLOOD SPECIMEN / Unknown Venipuncture / Unknown 10/15/2024 2:07 PM EDT 10/15/2024 2:07 PM EDT us Murali Christie MD LABORATORY Final Result Performing Organization Address City/[facility]/ZIP Co de Phone Number [facility] [address] [place] [address], [place] * FERRITIN (10/15/2024 2:07 PM EDT) Pathologist [facility] Ferritin 37.1 30.3 - 565.7 ng/mL 10/16/2024 1:15 AM EDT [facility] Blood BLOOD SPECIMEN / Unknown Venipuncture / Unknown 10/15/2024 2:07 PM EDT 10/15/2024 2:07 PM EDT us Murali Christie MD LABORATORY Final Result [facility] [address] [place] [id number], [place] * (ABNORMAL) COMPREHENSIVE METABOLIC PANEL (10/15/2024 2:07 PM EDT) [facility] Protein, Total 6.6 6.3 - 8.0 g/dL 10/16/2024 3:50 AM EDT [facility] Albumin 3.8(L) 3.9 - 4.9 g/dL 10/16/2024 3:[facility] Calcium, Total 9.8 8.5 - 10.2 mg/dL 10/16/2024 3:50 AM [facility] Bilirubin, Total 0.2 0.2 - 1.3 mg/dL 10/16/2024 3:50 AM [facility] Alkaline Phosphatase 72 38 - 113 U/L 10/16/2024 3:50 AM [facility] AST 24 14 - 40 U/L 10/16/2024 3:50 AM [facility] ALT 21 10 - 54 U/L 10/16/2024 3:50 AM [facility] Glucose 90 74 - 99 mg/dL 10/16/2024 3:50 AM [facility] Comment: The [place] Diabetes Association (ADA) provides guidance for cutoff values for fasting glucose and random glucose. The ADA defines fasting as no caloric intake for at least 8 hours. Fasting plasma glucose results between 100 to 125 mg/dL indicate increased risk for diabetes (prediabetes). Fasting plasma glucose results greater than or equal to 126 mg/dL meet the criteria for diagnosis of diabetes. In the absence of unequivocal hyperglycemia, results should be confirmed by repeat testing. In a patient with classic symptoms of hyperglycemia or hyperglycemic crisis, random plasma glucose results greater than or equal to 200 mg/dL meet the criteria for diagnosis of diabetes. Reference: Standards of Medical Care in Diabetes 2016, [place] [employer] Association. Diabetes Care. 2016.39(Suppl 1). BUN 14 9 - 24 mg/dL 10/16/2024 3:50 AM [facility] Creatinine 1.03 0.73 - 1.22 mg/dL 10/16/2024 3:50 AM [facility] Sodium 142 136 - 144 mmol/L 10/16/2024 3:50 AM [facility] Potassium 4.4 3.7 - 5.1 mmol/L 10/16/2024 3:50 AM [facility] Chloride 108(H) 98 - 107 mmol/L 10/16/2024 3:50 AM [facility] CO2 24 22 - 30 mmol/L 10/16/2024 3:50 AM [facility] Anion Gap 10 8 - 15 mmol/L 10/16/2024 3:50 AM EDT [facility] Estimated Glomerular Filtration Rate 80 >=60 mL/min/1.7 3m 10/16/2024 3:50 AM EDT [facility] Comment:Estimated Glomerular Filtration Rate (eGFR) is calculated using the 2020 CKD-EPI creatinine equation. This equation utilizes serum creatinine, sex, and age as parameters. The creatinine assay has traceable calibration to isotope dilution- mass spectrometry. Refer to KDIGO guidelines for clinical interpretation. In patients with unstable renal function, e.g. those with acute kidney injury, the eGFR may not accurately reflect actual GFR. Blood BLOOD SPECIMEN / Unknown Venipuncture / Unknown 10/15/2024 2:07 PM EDT 10/15/2024 2:07 PM EDT us Murali Christie MD LABORATORY Final Result [facility] [address] [place] [address], * (ABNORMAL) COMPLETE BLOOD COUNT AND DIFFERENTIAL (10/15/2024 2:07 PM EDT) WBC 6.25 3.70 - 11.00 k/uL 10/15/2024 2:18 PM EDT [facility] RBC 4.89 4.20 - 6.00 m/uL 10/15/2024 2:18 PM EDT [facility] Hemoglobin 13.9 13.0 - 17.0 g/dL 10/15/2024 2:18 PM EDT [facility] Hematocrit 42.3 39.0 - 51.0 % 10/15/2024 2:18 PM EDT [facility] MCV 86.5 80.0 - 100.0 fL 10/15/2024 2:18 PM EDT [facility] MCH 28.4 26.0 - 34.0 pg 10/15/2024 2:18 PM EDT [facility] MCHC 32.9 30.5 - 36.0 g/dL 10/15/2024 2:18 PM EDT [facility] RDW-CV 15.5(H) 11.5 - 15.0 % 10/15/2024 2:18 PM EDT [facility] Platelet Count 211 150 - 400 k/uL 10/15/2024 2:18 PM EDT [facility] MPV 10.5 9.0 - 12.7 fL 10/15/2024 2:18 PM EDT [facility] Neutrophils % 66.4 % 10/15/2024 2:18 PM EDT [facility] Abs Neut 4.15 1.45 - 7.50 k/uL 10/15/2024 2:18 PM EDT [facility] Lymphocytes % 18.1 % 10/15/2024 2:18 PM EDT [facility] Abs Lymph 1.13 1.00 - 4.00 k/uL 10/15/2024 2:18 PM EDT [facility] Monocytes % 9.3 % 10/15/2024 2:18 PM EDT [facility] Abs [place] 0.58 <0.87 k/uL 10/15/2024 2:18 PM EDT [facility] Eosinophils % 5.0 % 10/15/2024 2:18 PM EDT [facility] Abs Eosin 0.31 <0.46 k/uL 10/15/2024 2:18 PM EDT [facility] Basophils % 0.6 % 10/15/2024 2:18 PM EDT [facility] Abs Baso 0.04 <0.11 k/uL 10/15/2024 2:18 PM EDT [facility] Immature Granulocytes % 0.6 % 10/15/2024 2:18 PM EDT [facility] Abs Immature Gran 0.04 <0.10 k/uL 10/15/2024 2:18 PM EDT [facility] NRBC 0.0 /100 WBC 10/15/2024 2:18 PM EDT [facility] Absolute nRBC <0.01 <0.01 k/uL 10/15/2024 2:18 PM EDT [facility] Diff Type Auto 10/15/2024 2:18 PM EDT [facility] Blood BLOOD SPECIMEN / Unknown Venipuncture / Unknown 10/15/2024 2:07 PM EDT 10/15/2024 2:07 PM EDT Murali Christie MD LABORATORY Final Result [facility] [address] [place] [address] from Last 3 Months Insurance MEDICARE A[employer] SUPPLEMENT Advance Directives Documents on File Type Date Recorded 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
--- OUTSIDE RECORDS SUMMARY | 2024-10-25 13:08 | XMS_ITS | Encounter Summary ---
Author Organization [facility] Address [address] [place] [address] Care Team Providers Care Weighbridge Operator Name Role Phone Sekou Willis DO Primary Care Provider [phone] No Miller STRUCTURAL STEEL WORKER APPRENTICE Unavailable [phone] Encounter Details Date Type Department Care Team (Late st Contact Info) Description 10/15/2024 Clinisync Result Encounter [facility] External Department Unsolicited Provider, Generic External Data Social History Tobacco Use Types Packs/Day Years Used Date Smoking Tobacco: Former Cigarettes Smokeless Tobacco: Never Comments:Reports being a 20 year smoker, never smoked more than 3 cig per day Alcohol Use Standard Drinks/Week Comments Yes 2 (1 standard drink = 0.6 oz pure alcohol) Now 2 cans a week but lately been drinking NA B1300 Health Literacy Answer Date Recor ded How often do you need to hav e someone help you when you read instructions, pamphlets, or other written material from your doctor or pharmacy? Rarely 08/21/2024 Humiliation, Afraid, Rape, and Kick questionnair e Answer Date Recorded Within the last year, have y ou been afraid of your partner or ex-partner? No 08/21/2024 Within the last year, have y ou been humiliated or emotionally abused in other ways by your partner or ex-partner? No Within the last year, have y ou been kicked, hit, slapped, or otherwise physically hurt by your partner or ex-partner? No 08/21/2024 Within the last year, have y ou been raped or forced to have any kind of sexual activity by your partner or ex-partner? No 08/21/2024 Social Connection and Isolation Panel [NHANES] A nswer Date Recorded In a typical week, how many times do you talk on the phone with family, friends, or neighbors? Never 08/21/2024 How often do you get togethe r with friends or relatives? Patient declined 08/21/2024 How often do you attend quaker or amish serv ices? Patient declined 08/21/2024 Do you belong to any clubs o r organizations such as quaker groups, unions, fraternal or athletic groups, or school groups? No 08/21/2024 How often do you attend meet ings of the clubs or organizations you belong to? Never 08/21/2024 Are you , , di vorced, , never , or living with a partner? 08/21/2024 AUDIT-C Answer Date Recorded Q1: How often do you have a drink containing alc ohol? Monthly or less 08/21/2024 Q2: How many drinks containi ng alcohol do you have on a typical day when you are drinking? Patient declined 08/21/2024 Q3: How often do you have si x or more drinks on one occasion? Never 08/21/2024 Overall Financial Resource Strain (CARDIA) Answe r Date Recorded How hard is it for you to pa y for the very basics like food, housing, medical care, and heating? Not hard at all 08/21/2024 PHQ-2 Answer Date Recorded Patient Health Questionnaire-2 Score 0 08/21/2024 [facility] - Occupational Stress Questionnaire Answer Date Recorded Do you feel stress - tense, restless, nervous, or anxious, or unable to sleep at night because your mind is troubled all the time - these days? Not at all 08/21/2024 Exercise Vital Sign Answer Date Recorde d On average, how many days pe r week do you engage in moderate to strenuous exercise (like a brisk walk)? 0 days 08/21/2024 On average, how many minutes do you engage in exercise at this level? 0 min 08/21/2024 Hunger Vital Sign Answer Date Recorded Within the past 12 months, y ou worried that your food would run out before you got the money to buy more. Never true 08/22/19 25 Within the past 12 months, t he food you bought just didn't last and you didn't have money to get more. Never true 08/21/2024 PRAPARE - Transportation Answer Date Re corded In the past 12 months, has l ack of transportation kept you from medical appointments or from getting medications? No 10/2024 In the past 12 months, has l ack of transportation kept you from meetings, work, or from getting things needed for daily living? No 08/21/2024 Housing Stability Vital Sign Answer Khai e [...] place to sleep or slept in a penitentiary (including now)? No 02/21/2023 Housing Stability Vital Sign Answer Khai e Recorded In the last 12 months, was t here a time when you were not able to pay the mortgage or rent on time? No 08/21/2024 In the past 12 months, how m any times have you moved where you were living? 0 08/21/2024 At any time in the past 12 m [facility], were you homeless or living in a penitentiary (including now)? No 08/21/2024 Sex and Gender Information Value Date Recorded [...] [facility] [address] [place] [address] Vandana Banuelos MD, IBCLC [address] [place] [address] documented as of this encounter Goals Goal Patient Goal Type Associated Problems Recent Progress Patient-Stated? Author Help patient manage antidepressant medication Care Plan Patient on antidepressant monitoring plan Isabel Sweet RN documented as of this encounter Procedures Procedure Name Priority Date/Time Associated Diagnosis Comments [facility] VIT B12 SERPL-MCNC Routine 10/15/2024 2:07 PM EDT [facility] PSA SERPL-MCNC Routine 10/15/2024 2: 07 PM EDT [facility] IRON+TIBC PNL SERPL Routine 10/15/2024 2:07 PM EDT [facility] FOLATE SERPL-MCNC Routine 10/15/2024 2:07 PM EDT [facility] FERRITIN SERPL-MCNC Routine 10/15/2024 2:07 PM EDT [facility] CBC W AUTO DIFF BLD Routine 10/15/2024 2:07 PM EDT [facility] COMP METAB 2000 PNL SERPL Routine 10/15/2024 2:07 PM EDT documented in this encounter Results * (ABNORMAL) [facility] COMP METAB 2000 PNL SERPL (10/15/2024 2:07 PM EDT) [facility] PROT SERPL-MCNC 6.6 6.3 - 8.0 g/dL [facility] ALBUMIN SERPL-MCNC 3.8(L) 3.9 - 4.9 g/dL [facility] CALCIUM SERPL-MCNC 9.8 8.5 - 10.2 mg/dL [facility] BILIRUB SERPL-MCNC 0.2 0.2 - 1.3 mg/dL [facility] ALP SERPL-CCNC 72 38 - 113 U/L [facility] AST SERPL-CCNC 24 14 - 40 U/L [facility] C[facility] ALT SERPL-CCNC 21 10 - 54 U/L [facility]CF [facility] GLUCOSE SERPL-MCNC 90 74 - 99 mg/dL [facility] Comment: The [place] Diabetes Association (ADA) provides guidance for cutoff [...] Standards of Medical Care in Diabetes 2016, [place] Diabetes Association. Diabetes Care. 2016.39(Suppl 1). [facility] BUN SERPL-MC[facility] 14 9 - 24 mg/dL [facility] CREAT SERPL-MCNC 1.03 0.73 - 1.22 mg/dL [facility] SODIUM SERPL-SCNC 142 136 - 144 mmol/L [facility] POTASSIUM SERPL-SCNC 4.4 3.7 - 5.1 mmol/L [facility] CHLORIDE SERPL-SCNC 108(H) 98 - 107 mmol/L [facility] CO2 SERPL-SCNC 24 22 - 30 mmol/L [facility] ANION GAP SERPL-SCNC 10 8 - 15 mmol/L [facility] CCF CREATININE + EGFR PNL SERPLBLD 80 >=60 mL/min/1.7 3m??? [facility] Comment:Estimated Glomerular Filtration Rate (eGFR) is calculated using the 2020 CKD-EPI creatinine equation. This equation utilizes serum creatinine, sex, and age as parameters. The creatinine assay has traceable calibration to isotope dilution- mass spectrometry. Refer to KDIGO guidelines for clinical interpretation. In patients with unstable renal function, e.g. those with acute kidney injury, the eGFR may not accurately reflect actual GFR. 10/15/2024 2:07 PM EDT 10/15/2024 10:39 PM EDT Ace DENNIS - 10/16/2024 3:50 AM EDT Specimen Type: BLOOD SPECIMEN Ordering Facility: [facility] Address: [address] [place] [address] Original Ordering Provider: LINDEN MARTIN us Generic External Data Provider CLINISYNC F inal Result Performing Organization Address [facility] Co de Phone Number REYNANC CC [address] [facility] [address] [address] * CC PSA SERPL-MCNC (10/15/2024 2:07 PM EDT) Pathologist [facility] PSA SERPL-MCNC <0.02 <2.60 ng/mL CC Comment:Total PSA test metho dology used is the Electrochemiluminescence Immunoassay by [facility]. Total PSA values by differing methodologies cannot be interchanged. 10/15/2024 2:07 PM EDT 10/15/2024 10:39 PM EDT Narrative CLINISYND - 10/16/2024 3:49 AM EDT Specimen Type: BLOOD SPECIMEN Ordering Facility: [facility] Address: [address] [place] [address] Original Ordering Provider: LINDEN MARTIN Generic External Data Provider REYNANC F inal Result Performing Organization Address [facility] de Phone Number SONNY CC [address] [facility] [address] [address] * [facility] FOLATE SERPL-MCNC (10/15/2024 2:07 PM EDT) [facility] FOLATE SERPL-MCNC >20.0 >4.7 ng/mL [facility] Comment: A result of > 20 ng/mL is not necessarily indicative of a pathologic or treatable condition: it reflects a limitation of the test methodology. Assay reference range: 4.8 to 24.2 ng/mL. Suitable for detection of folate deficiency. Reference: Folate III (Folate III) [package insert V 1.0 [place]anian]. [facility], [place], [place]: February 2015. 10/15/2024 2:07 PM EDT 10/15/2024 10:39 PM EDT Narrative CLINISYND - 10/16/2024 1:15 AM EDT Specimen Type: BLOOD SPECIMEN Ordering Facility: [facility] Address: [address] [place] [address] Original Ordering Provider: LINDEN MARTIN us Generic External Data Provider CLINISYNC F inal Result Performing Organization Address City/[facility] Hospital/ZIP Co de Phone Number CLINISYNC [facility] [address] [address] * [facility] FERRITIN SERPL-MCNC (10/15/2024 2:07 PM EDT) [facility] FERRITIN SERPL-MCNC 37.1 30.3 - 565.7 ng/mL [facility] 10/15/2024 2:07 PM EDT 10/15/2024 10:39 PM EDT Narrative CLINISYNC - 10/16/2024 1:15 AM EDT Specimen Type: BLOOD SPECIMEN Ordering Facility: [facility] Address: [address] [place] [address] Original Ordering Provider: LINDEN MARTIN us Generic External Data Provider CLINISYNC F inal Result Performing Organization Address [facility] Co de Phone Number CLINISYNC [facility] [address] [address] * [facility] VIT B12 SERPL-MCNC (10/15/2024 2:07 PM EDT) [facility] 385 232 - 1,245 pg/mL [facility] 10/15/2024 2:07 PM EDT 10/15/2024 10:39 PM EDT Narrative CLINISYNC - 10/16/2024 1:15 AM EDT Specimen Type: BLOOD SPECIMEN Ordering Facility: [facility] Address: [address] [place] [address] Original Ordering Provider: LINDEN MARTIN us Generic External Data Provider CLINISYNC F inal Result Performing Organization Address City/[facility] Hospital/ZIP Co de Phone Number CLINISYNC [facility] [address] [address] * (ABNORMAL) [facility] IRON+TIBC PNL SERPL (10/15/2024 2:07 PM EDT) [facility] C[facility] IRON SERPL-MCNC 41 41 - 186 ug/dL C[facility] C[facility] TIBC SERPL-MCNC 291 232 - 386 ug/dL [facility] IRON/TIBC SERPL-SRTO 14.1(L) 15.0 - 57.0 % [facility]CF 10/15/2024 2:07 PM EDT 10/15/2024 10:39 PM EDT Narrative ARELISISYNC - 10/16/2024 12:53 AM EDT Specimen Type: BLOOD SPECIMEN Ordering Facility: [facility] Address: [address] [place] [address] Original Ordering Provider: LINDEN MARTIN us Generic External Data Provider SONNY mojica Result CLINISYCAROL [facility] [address] [facility] [address] [place] [address] * (ABNORMAL) [facility] CBC W AUTO DIFF BLD (10/15/2024 2:07 PM EDT) [facility] CCF WBC # BLD AUTO 6.25 3.70 - 11.00 k/uL [facility] CCF RBC # BLD AUTO 4.89 4.20 - 6.00 m/uL CCF CCF HGB BLD-MCNC 13.9 13.0 - 17.0 g/dL [facility] CCF HCT VFR BLD AUTO 42.3 39.0 - 51.0 % [facility] CCF MCV RBC AUTO 86.5 80.0 - 100.0 fL CCF CCF MCH RBC QN AUTO 28.4 26.0 - 34.0 pg CCF CCF MCHC RBC AUTO-MCNC 32.9 30.5 - 36.0 g/dL CCF CCF RDW RBC-RTO 15.5(H) 11.5 - 15.0 % [facility] C[facility] PLATELET # BLD AUTO 211 150 - 400 k/uL [facility] CCF PMV BLD AUTO 10.5 9.0 - 12.7 fL CCF [facility] NEUTROPHILS/LEUK NFR BLD AUTO 66.4 % [facility] NEUTROPHILS # BLD AUTO 4.15 1.45 - 7.50 k/uL CCF CCF LYMPHOCYTES/[place] NFR BLD AUTO 18.1 % [facility] CCF LYMPHOCYTES # BLD AUTO 1.13 1.00 - 4.00 k/uL C[facility] CCF MONOCYTES/[place] NFR BLD AUTO 9.3 % [facility] CCF MONOCYTES # BLD AUTO 0.58 <0.87 k/uL C[facility] CCF EOSINOPHIL/[place] NFR BLD AUTO 5.0 % [facility] CCF EOSINOPHIL # BLD AUTO 0.31 <0.46 k/uL C[facility] CCF BASOPHILS/[place] NFR BLD AUTO 0.6 % [facility] CCF BASOPHILS # BLD AUTO 0.04 <0.11 k/uL C[facility] IMM GRANULOCYTES/[place] NFR BLD AUTO 0.6 % [facility] IMM GRANULOCYTES # BLD AUTO 0.04 <0.10 k/uL CCF CCF NRBC/100 WBC BLD-RTO 0.0 /100 WBC CCF CCF NRBC # BLD AUTO <0.01 <0.01 k/uL CCF CCF DIFFERENTIAL METHOD BLD Auto [facility]CF 10/15/2024 2:07 PM EDT 10/15/2024 2:07 PM EDT Narrative ARELISISYNC - 10/15/2024 2:18 PM EDT Specimen Type: BLOOD SPECIMEN Ordering Facility: [facility] Address: [address] [place] [address] Original Ordering Provider: LINDEN MARTIN us Generic External Data Provider SONNY F inal Result Performing Organization Address City/State/[facility] Co de Phone Number CLINISYNC [facility] [address] [place] [address] documented in this encounter Visit Diagnoses Not on filedocumented in this encounter Additional Health Concerns Active Problems Noted Date Diagnosed Date Patient on antidepressant monitoring plan 2023 Assessment Noted Time PHQ-9 Depression Total Score: 0 03/15/20 23 1:00 PM EST documented as of this encounter Care Teams Weighbridge Operator Relationship Specialty Start Date End Date Sekou Willis DO [address] [place], [place] [id number] PCP - General Family Medicine 08/23/22 No Miller, STRUCTURAL STEEL WORKER APPRENTICE [address] [place] [address] PCP - ACO Reach 04/17/24 documented as of this encounter
--- OUTSIDE RECORDS SUMMARY | 2024-10-25 13:08 | XMS_ITS | Encounter Summary ---
Author Organization [facility] Address [address] [place], [place] [id number] Care Team Providers Care Exhibition Carver Name Role Phone Noemi Chu SAMUEL Primary Care Provider Source Comments In the event this information is protected by the Federal Confidentiality of Alcohol and Drug AbusePatient Records regulations: The Federal rules restrict any use of the information to criminally investigate or prosecute any alcohol or drug abuse patient.[facility] Reason for Visit * Reason Comments Results Encounter Details Date Type Department Care Team (Late st Contact Info) Description 10/15/2024 Telephone Cancer [facility] [address] [place] [address] Murali Christie MD [address] [place] [address] [place] [address] Results Social History Tobacco Use Types Packs/Day [...] is lower risk 6 09/08/2022 Data from: https://www.neighborhoodatlas.medicine.[facility]/. Last address used for calculation [address] [facility] 09/08/2022 Sex and Gender Information Value [...] encounter Miscellaneous Notes * Telephone Encounter - Michelle Bustos RN - 10/16/2024 1:10 PM EDT VM left for pt with JR message below. Encouraged to call with any questions, needs or concerns. Follow up appointment date and time provided. Michelle Bustos RN * Telephone Encounter - Riri Lamb APRN.SAMUEL - 10/16/2024 1:05 PM EDT Hi, please call with normal PSA. Other labs stable. Thanks. * Telephone Encounter - Michelle Bustos RN - 10/16/2024 7:59 AM EDT Provider: Please review labs and advise any additional needs/recommendations prior to RTC 04/14/25 Michelle Bustos RN * Telephone Encounter - Ally Calix - 10/15/2024 3:30 PM EDT Images from the original note were not included. documented in this encounter Plan of Treatment Upcoming Encounters Date Type Department Care Team (Latest Contact Info) Description 01/29/2025 11:45 AM EDT Office Visit Radiation Oncology [address] [place] [address] [place] [address] Mohsen Ackerman MD [address] [place] [address] [place] [address] 6 month follow up 04/14/2025 2:30 PM EST Office Visit [facility] [address] [place] [address] [place] [address] 6 month follow up with Pat hanson 04/14/2025 2:40 PM EST Visit (SP) Office Hematology/Oncology [address] [place] [address] [place] [address] Murali Christie MD [address] [place] [address] [place] [address] 6 month follow up with lab and Eligard inj 04/14/2025 3:00 PM [facility] Hematology/Oncology [address] [place] [address] 6 month follow up with lab and Eligard inj documented as of this encounter Visit Diagnoses Not on filedocumented in this encounter Care Teams Exhibition Carver Relationship Specialty Start Date End Date Noemi Chu CNP [address] [place] [address] PCP - General Family Medicine 11/10/17 documented as of this encounter
--- OUTSIDE RECORDS SUMMARY | 2024-10-25 13:08 | XMS_ITS | Encounter Summary ---
Author Organization [facility] Address [address] [place] [address] Care Team Providers Care Information Technology Officer Name Role Phone Alba Sekou Connolly DO Primary Care Provider [phone] No Miller STORY EDITOR Unavailable [phone] Encounter Details Date Type Department Care Team (Late st Contact Info) Description 04/02/2024 Abstract [facility] [address] [place] [address] No Miller, ZANE [address] [place] [address] Social History Tobacco Use Types Packs/Day [...] How often do you attend chur or judaism services? More than 4 times per year 02/21/2023 Do you belong to any clubs o r organizations such as sabianism groups, unions, fraternal or athletic groups, or [...] Date Recorded Patient Health Questionnaire-2 Score 0 02/15/2024 [facility] - Occupational [...] money to buy more. Never true 02/22/20 Within the past 12 months, t he [...] place to sleep or slept in a senior care (including now)? No 02/21/2023 Sex and Gender [...] Visit [facility] [address] [place] [phone] Vandana Banuelos MD, IBCLC [address] [place] [address] documented as of this encounter Goals Goal Patient Goal Type Associated Problems Recent Progress Patient-Stated? Author Help patient manage antidepressant medication Care Plan Patient on antidepressant monitoring plan No Isabel Bella, RN documented as of this encounter Visit Diagnoses Not on filedocumented in this encounter Additional Health Concerns Active Problems Noted Date Diagnosed Date Patient on antidepressant monitoring plan 2023 Assessment Noted Time PHQ-9 Depression Total Score: 0 03/15/20 1:00 PM EST documented as of this encounter Care Teams Information Technology Officer Relationship Specialty Start Date End Date Sekou Willis DO [address] [place], [place] [phone] PCP - General Family Medicine 08/23/22 No Miller NP [address] [place] [address] PCP - ACO Reach 04/17/24 documented as of this encounter
--- OUTSIDE RECORDS SUMMARY | 2024-10-25 13:08 | XMS_ITS | Encounter Summary ---
Author Organization [facility] Address [address] [place] [address] Care Team Providers Care Probation Worker Name Role Phone Noemi Chu SAMUEL Primary Care Provider Source Comments In the event this information is protected by the Federal Confidentiality of Alcohol and Drug AbusePatient Records regulations: The Federal rules restrict any use of the information to criminally investigate or prosecute any alcohol or drug abuse patient.[facility] Encounter Details Date Type Department Care Team (Latest Contact Info) Description 10/15/2024 Travel Social History Tobacco Use Types Packs/Day Years [...] is lower risk 6 09/08/2022 Data from: https://www.neighborhoodatlas.medicine.[employer]/. Last address used for calculation [address] [facility] 09/08/2022 Sex and Gender Information Value [...] 11:45 AM EDT Office Visit Radiation Oncology [facility] [place] [place] [address] Mohsen Ackerman MD [address] [place] [address] 6 month follow up 04/14/2025 2:30 PM EST Office Visit [facility] [place] [address] 6 month follow up with lab and Eligard inj 04/14/2025 2:40 PM EST Visit (SP) Office Hematology/Oncology [address] [place] [address] [place] [address] Murali Christie MD [address] [place] [address] 6 month follow up with lab and Eligard inj 04/14/2025 3:00 PM EST Infusion Center Hematology/Oncology [address] [place] [address] 6 month follow up with lab and Eligard inj documented as of this encounter Visit Diagnoses Not on filedocumented in this encounter Care Teams Probation Worker Relationship Specialty Start Date End Date Noemi Chu CNP [address] [place] [address] PCP - General Family Medicine 11/10/17 documented as of this encounter
--- OUTSIDE RECORDS SUMMARY | 2024-10-25 13:08 | XMS_ITS | Encounter Summary ---
[facility] Address [address] [place] [address] Care Team Providers Care Business Administration Program Chair Name Role Phone adalgisa Noemi BHATT - [employer] Primary Care Provider [phone] Reason for Referral * Imaging (Routine) - Closed Specialty Diagnoses / Procedures Referred By Contac t Referred To Contact Radiology Diagnoses Benign prostatic hyperplasia with lower urinary tract symptoms, symptom details unspecified Cancer of prostate (HCC) Elevated PSA Personal history of prostate cancer Stress incontinence Weak urinary stream N40.1 (ICD-10-CM) - Benign prostatic hyperplasia with lower urinary tract symptoms, symptom details unspecified Procedures NM BONE SCAN WHOLE BODY TX BONE IMAGING, WHOLE BODY [id number] - TX BONE IMAGING, WHOLE BODY Navneet Soto MD Referral ID Status Reason Start Date Expiration Date Visits Re quested Visits Authorized [id number] Closed 06/08/2021 07/23/2021 2 2 Encounter Details Date Type Department Care Team (Latest Contact Info) Description 06/01/2021 Transcribe Orders [facility] [address] [place] [address] Navneet Soto MD Benign prostatic hyperplasia with lower urinary tract symptoms, symptom details unspecified (Primary Dx); Cancer of prostate (HCC); Elevated PSA; Personal history of prostate cancer; Stress incontinence; Weak urinary stream Social History Tobacco Use Types Packs/Day Years [...] on file Sexual Orientation Not on file documented as of this encounter Plan of Treatment Not on file documented as of this encounter Results * NM BONE SCAN WHOLE BODY (06/24/2021 2:02 PM EST) Anatomical Region Laterality Modality Nuclear Medicine 06/24/2021 2:02 PM EST Impressions 06/24/2021 2:08 PM EST No evidence to suggest osseous metastatic disease. Narrative 06/24/2021 2:08 PM EST EXAMINATION: WHOLE BODY BONE SCAN 06/24/2021 TECHNIQUE: The patient was injected intravenously with 26.2 mCi of 99 mTc MDP and scintigraphy of the entire skeleton was performed approximately three hours later. COMPARISON: Patient did not have previous imaging studies for comparison. HISTORY: ORDERING SYSTEM PROVIDED HISTORY: Benign prostatic hyperplasia with lower urinary tract symptoms, symptom details unspecified FINDINGS: No abnormal foci of radiotracer uptake to suggest metastatic disease. Foci of activity in the bilateral shoulders, wrists, knees, ankles and feet as well as lower lumbar spine are most likely degenerative. The remainder of the osseous structures and soft tissues are unremarkable. Physiologic activity is present in the skeletal and renal collecting systems. Procedure Note Marcela Crowell MD - 06/24/2021 EXAMINATION: WHOLE BODY BONE SCAN 06/24/2021 TECHNIQUE: The patient was injected intravenously with 26.2 mCi of 99 mTc MDP and scintigraphy of the entire skeleton was performed approximately threehours later. COMPARISON: Patient did not have previous imaging studies for comparison. HISTORY: ORDERING SYSTEM PROVIDED HISTORY: Benign prostatic hyperplasia withlower urinary tract symptoms, symptom details unspecified FINDINGS: No abnormal foci of radiotracer uptake to suggest metastatic disease.Foci of activity in the bilateral shoulders, wrists, knees, ankles and feetas well as lower lumbar spine are most likely degenerative. The remainder of the osseous structures and soft tissues areunremarkable. Physiologic activity is present in the skeletal and renal collectingsystems. IMPRESSION: No evidence to suggest osseous metastatic disease. Navneet Soto MD [facility] [place] Final Result documented in this encounter Visit Diagnoses Diagnosis Benign prostatic hyperplasia with lower urinary tract symptoms, symptom details unspecified- Primary Cancer of prostate (HCC) Malignant neoplasm of prostate Elevated PSA Elevated prostate specific antigen (PSA) Personal history of prostate cancer Personal history of malignant neoplasm of prostate Stress incontinence Female stress incontinence Weak urinary stream Slowing of urinary stream Benign prostatic hyperplasia with lower urinary tract symptoms, symptom details unspecified Cancer of prostate (HCC) Malignant neoplasm of prostate Elevated PSA Elevated prostate specific antigen (PSA) Personal history of prostate cancer Personal history of malignant neoplasm of prostate Stress incontinence Female stress incontinence Weak urinary stream Slowing of urinary stream documented in this encounter Care Teams Business Administration Program Chair Relationship Specialty Start Date End Date Noemi Chu APRN - ZANE PCP - General Nurse Practitioner 04/12/18 documented as of this encounter
--- OUTSIDE RECORDS SUMMARY | 2024-10-25 13:08 | XMS_ITS | Encounter Summary ---
Author Organization [facility] Address [address] [place] [address] Care Team Providers Care Systems Accountant Name Role Phone Noemi Chu SAMUEL Primary Care Provider [phone] Source Comments In the event this information is protected by the Federal Confidentiality of Alcohol and Drug AbusePatient Records regulations: The Federal rules restrict any use of the information to criminally investigate or prosecute any alcohol or drug abuse patient.[facility] Encounter Details Date Type Department Care Team (Late st Contact Info) Description 2022 [place] [address] Provider, [facility] Medicare Coverage of Physical Exams Social History Tobacco Use Types Packs/Day Years Used Date Smoking Tobacco: Former Cigarettes 1 05/13/1979 - 03/13/2000 Smokeless Tobacco: Never Comments:3 cigs a day Alcohol Use Standard Drinks/Week Comments Yes 0 (1 standard drink = 0.6 oz pur e alcohol) occ PHQ-2 Answer Date Recorded PHQ2 Score 0 03/20/2018 Area Deprivation Index Answer Date Rashawn rded National Score (1-100), lower number is lower ri sk 77 05/10/2022 State Score (1-10), lower number is lower risk N ot on file 05/10/2022 Data from: https://www.neighborhoodatlas.[facility]/. Last address used for calculation [address] 05/10/2022 Sex and Gender Information Value Date Recorded [...] AM EDT Office Visit Radiation Oncology [address] [place] [address] Mohsen Ackerman MD [address] [place] [address] 6 month follow up 04/14/2025 2:30 PM EST Office Visit [facility] [address] [place] [address] 6 month follow up with lab and Eligard inj 04/14/2025 2:40 PM EST Visit (SP) Office Hematology/Oncology [address] [place] [address] [place] [address] Murali Christie MD [address] [place] [address] [place] [address] 6 month follow up with lab and Eligard inj 04/14/2025 3:00 PM EST Infusion Center Hematology/Oncology [address] [place] [address] 6 month follow up with lab and Eligard inj documented as of this encounter Visit Diagnoses Not on filedocumented in this encounter Care Teams Systems Accountant Relationship Specialty Start Date End Date Noemi Chu CNP [address] [place] [address] PCP - General Family Medicine 11/10/17 documented as of this encounter
--- OUTSIDE RECORDS SUMMARY | 2024-10-25 13:08 | XMS_ITS | Encounter Summary ---
Author Organization [facility] Address [address] [place] [address] Care Team Providers Care Hairspring Truing Inspector Name Role Phone Sekou Willis DO Primary Care Provider [phone] No Miller LAUNDRY SUPERINTENDENT Unavailable [phone] Encounter Details Date Type Department Care Team (Late st Contact Info) Description 03/22/2024 Clinisync Result Encounter [facility] External Department Unsolicited [...] How often do you attend chur or hoahaoism services? More than 4 times per year 02/21/2023 Do you belong to any clubs o r organizations such as baptism groups, unions, fraternal or athletic groups, or [...] Recorded Patient Health Questionnaire-2 Score 0 02/15/2024 [facility] - Occupational Stress Questionnaire Answer Date Recorded [...] place to sleep or slept in a long term (including now)? No 02/21/2023 Sex and Gender [...] Office Visit [facility] [address] [place] [id number] Vandana Banuelos MD, IBCLC [address] [place] [address] documented as of this encounter Goals Goal Patient Goal Type Associated Problems Recent Progress Patient-Stated? Author Help patient manage antidepressant medication Care Plan Patient on antidepressant monitoring plan No Isabel Bella RN documented as of this encounter Procedures Procedure Name Priority Date/Time Associated Diagnosis Comments NM PET/CT PROSTATE WB 03/22/2024 2:41 PM EST documented in this encounter Results * NM PET/CT PROSTATE WB (03/22/2024 2:41 PM EST) Anatomical Region Laterality Modality Other 03/22/2024 2:41 PM EST Narrative 03/23/2024 10:52 PM EST * * *Final Report* * * DATE OF EXAM: Mar 22 2024 2:41PM NRN [id number] - NM PET/CT PROSTATE WB / PROCEDURE REASON: Malignant neoplasm of prostate (HCC) * * * * Physician Interpretation * * * * RESULT: EXAMINATION: PROSTATE-SPECIFIC MEMBRANE ANTIGEN PET-CT CLINICAL HISTORY: Prostate cancer. Status post prostatectomy. Rising PSA. EXAM CATEGORY: Subsequent treatment strategy. TECHNIQUE: Radiopharmaceutical was administered intravenously followed later on by PET imaging from the skull vertex to thighs. Free breathing, low dose CT of the same body region was acquired without IV contrast for attenuation correction and anatomic localization. Unenhanced imaging is limited for the evaluation of some pathology and the acquired CT was not designed to produce diagnostic CT scan quality. Physiologic/non-pathologic uptake in some body regions could confound or obscure some pathology. * CT Dose-Length Product (DLP): 230 mGy*cm * CT Dose Reduction Employed: Yes * Injection site: Right Forearm-Antecubital * Injected activity: 9.6 mCi * Uptake Time: 50 minutes * Radiopharmaceutical: F-18 PSMA (Posluma) COMPARISON: F-18 PSMA PET/CT 06/01/2022 CORRELATION: No relevant prior imaging available RESULT: REFERENCES: Uptake by the injected radiopharmaceutical serves as a surrogate marker for prostate-specific membrane antigen (PSMA) expression. All reported standardized uptake values represent maximum SUV (SUVmax) per body weight, unless otherwise specified. SUV Reference Values: * Background Salivary Gland: SUVmax 17 * Blood Pool (Descending Aorta): SUVmax 2 * Background Liver: SUVmax 7 Localizer Images: No additional findings. HEAD AND NECK: Head: No radiotracer avid lesion or mass effect in the intracranial compartment. Aerodigestive Tract: No radiotracer avid lesion. Lymph Nodes: No radiotracer avid lymphadenopathy. Neck Soft Tissues: No radiotracer avid thyroid nodule. CHEST: Lungs and Pleura: No radiotracer avid mass, nodule, or consolidation. No pleural effusion. Lymph Nodes: No radiotracer avid lymphadenopathy. Mediastinum: No radiotracer avid mass. Cardiovascular: Blood pool activity. No pericardial effusion. Normal heart size. Chest Wall: No radiotracer avid soft tissue lesion. ABDOMEN AND PELVIS: Hepatobiliary: No radiotracer avid lesion. No measurable mass. Spleen: No radiotracer avid lesion. No splenomegaly. Pancreas: No radiotracer avid lesion. Adrenals: No radiotracer avid nodule. Urinary Tract: Physiologic radiotracer excretion in the urinary tract. No hydronephrosis. GI Tract: No radiotracer avid lesion. 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 Peritoneum: No radiotracer avid lesion. No ascites. Lymph Nodes: * Abdomen (including common iliac): No radiotracer avid lymphadenopathy. * Pelvis (below common iliac): New mildly radiotracer avid subcentimeter left internal iliac node, 0.3 cm , SUV 4.1, image 68. Vasculature: Blood pool activity. Prostate and Seminal Vesicles: No radiotracer avid lesion in the prostatectomy bed. Resolved prior radiotracer avid uptake in the left prostatectomy bed Pelvis Soft Tissues: No radiotracer avid lesion. MUSCULOSKELETAL: Bones: No radiotracer avid lesion. No lytic or sclerotic lesion. Soft Tissues: No radiotracer avid lesion. IMPRESSION: PROSTATE: * No PSMA expressing lesion in the prostatectomy bed. RADHA DISEASE: * New mildly PSMA expressing subcentimeter left internal iliac lymphadenopathy. METASTATIC DISEASE: * No PSMA expressing distant metastases. Transcribe Date/Time: Mar 23 2024 10:43P Dictated by: YVETTE YE MD This examination was interpreted and the report reviewed and electronically signed by: YVETTE YE MD on Mar 23 2024 10:50PM EST Thank you for allowing us to participate in the care of your patient. Should there be any questions regarding this interpretation, please call [phone]. If you are unable to reach us at the number above, please feel free to contact [facility] at [phone]. [id number] Procedure Note Radiology, Radiologist, - 03/23/2024 * * *Final Report* * * DATE OF EXAM: Mar 22 2024 2:41PM NRN [id number] - NM PET/CT PROSTATE WB / PROCEDURE REASON: Malignant neoplasm of prostate (HCC) * * * * Physician Interpretation * * * * RESULT: EXAMINATION: PROSTATE-SPECIFIC MEMBRANE ANTIGEN PET-CT CLINICAL HISTORY: Prostate cancer. Status post prostatectomy. Rising PSA. EXAM CATEGORY: Subsequent treatment strategy. TECHNIQUE: Radiopharmaceutical was administered intravenously followed later on by PET imaging from the skull vertex to thighs. Free breathing, low dose CT of the same body region was acquired without IV contrast for attenuation correction and anatomic localization. Unenhanced imaging is limited for the evaluation of some pathology and the acquired CT was not designed to produce diagnostic CT scan quality. Physiologic/non-pathologic uptake in some body regions could confound or obscure some pathology. * CT Dose-Length Product (DLP): 230 mGy*cm * CT Dose Reduction Employed: Yes * Injection site: Right Forearm-Antecubital * Injected activity: 9.6 mCi * Uptake Time: 50 minutes * Radiopharmaceutical: F-18 PSMA (Posluma) COMPARISON: F-18 PSMA PET/CT 06/01/2022 CORRELATION: No relevant prior imaging available RESULT: REFERENCES: Uptake by the injected radiopharmaceutical serves as a surrogate marker for prostate-specific membrane antigen (PSMA) expression. All reported standardized uptake values represent maximum SUV (SUVmax) per body weight, unless otherwise specified. SUV Reference Values: * Background Salivary Gland: SUVmax 17 * Blood Pool (Descending Aorta): SUVmax 2 * Background Liver: SUVmax 7 Localizer Images: No additional findings. HEAD AND NECK: Head: No radiotracer avid lesion or mass effect in the intracranial compartment. Aerodigestive Tract: No radiotracer avid lesion. Lymph Nodes: No radiotracer avid lymphadenopathy. Neck Soft Tissues: No radiotracer avid thyroid nodule. CHEST: Lungs and Pleura: No radiotracer avid mass, nodule, or consolidation. No pleural effusion. Lymph Nodes: No radiotracer avid lymphadenopathy. Mediastinum: No radiotracer avid mass. Cardiovascular: Blood pool activity. No pericardial effusion. Normal heart size. Chest Wall: No radiotracer avid soft tissue lesion. ABDOMEN AND PELVIS: Hepatobiliary: No radiotracer avid lesion. No measurable mass. Spleen: No radiotracer avid lesion. No splenomegaly. Pancreas: No radiotracer avid lesion. Adrenals: No radiotracer avid nodule. Urinary Tract: Physiologic radiotracer excretion in the urinary tract. No hydronephrosis. GI Tract: No radiotracer avid lesion. 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 Peritoneum: No radiotracer avid lesion. No ascites. Lymph Nodes: * Abdomen (including common iliac): No radiotracer avidlymphadenopathy. * Pelvis (below common iliac): New mildly radiotracer avid subcentimeter left internal iliac node, 0.3 cm , SUV 4.1, image 68. Vasculature: Blood pool activity. Prostate and Seminal Vesicles: No radiotracer avid lesion in the prostatectomy bed. Resolved prior radiotracer avid uptake in the left prostatectomy bed Pelvis Soft Tissues: No radiotracer avid lesion. MUSCULOSKELETAL: Bones: No radiotracer avid lesion. No lytic or sclerotic lesion. Soft Tissues: No radiotracer avid lesion. IMPRESSION: PROSTATE: * No PSMA expressing lesion in the prostatectomy bed. RADHA DISEASE: * New mildly PSMA expressing subcentimeter left internal iliac lymphadenopathy. METASTATIC DISEASE: * No PSMA expressing distant metastases. Transcribe Date/Time: Mar 23 2024 10:43P Dictated by: YVETTE YE MD This examination was interpreted and the report reviewed and electronically signed by: YVETTE YE MD on Mar 23 2024 10:50PM EST Thank you for allowing us to participate in the care of your patient. Should there be any questions regarding this interpretation, please call [phone]. If you are unable to reach us at the number above, please feel free to contact [facility] at [phone]. [id number] us Generic External Data Provider [facility] Final Result documented in this encounter Visit Diagnoses Not on filedocumented in this encounter Additional Health Concerns Active Problems Noted Date Diagnosed Date Patient on antidepressant monitoring plan 2023 Assessment Noted Time PHQ-9 Depression Total Score: 0 03/15/20 23 1:00 PM EST documented as of this encounter Care Teams Hairspring Truing Inspector Relationship Specialty Start Date End Date Sekou Willis DO [address] [place] [address] PCP - General Family Medicine 08/23/22 No Miller NP [address] [place] [address] PCP - ACO Reach 04/17/24 documented as of this encounter
--- OUTSIDE RECORDS SUMMARY | 2024-10-25 13:08 | XMS_ITS | Clinical Summary ---
Author Organization [facility] Address [address] [place] [address] Care Team Providers Care Oleo Hasher And Renderer Name Role Phone Sekou Willis DO Primary Care Provider [phone] No Miller FLIGHT CONTROL MANAGER Unavailable [phone] Allergies No known active allergies Medications ASPIRIN 81 MG chewable tablet Chew 81 mg in the morning. Active cholecalciferol (Vitamin D-3) 25 MCG (1000 UT) tablet Take 25 mcg by mouth in the morning. Active magnesium 250 MG tablet Take 250 mg by mouth 1 (one) time each day at the same time. Active omega-3 (Fish Oil) 1000 MG capsule Take 1,000 mg by mouth in the morning. Active meloxicam (Mobic) 15 MG tabletIndications:P ain TAKE 1 TABLET BY MOUTH DAILY 90 tablet 5 Active ferrous sulfate 325 (65 Fe) MG tablet Take 325 mg by mouth in the morning. Take with meals. 5 Active citalopram (CeleXA) 20 MG tabletIndications:A nxiety TAKE 1 TABLET BY MOUTH DAILY 90 tablet 5 Active atorvastatin (Lipitor) 10 MG tabletIndications:M ixed hyperlipidemia TAKE 1 TABLET BY MOUTH DAILY 90 tablet 5 Active Active Problems Problem Noted Date Diagnosed Date DANA (generalized anxiety disorder) 11/29/2022 Crohn's disease 11/29/2022 GERD without esophagitis 11/29/2022 Mixed hyperlipidemia 11/29/2022 Primary osteoarthritis involving multiple joints 11/29/2022 Prostate cancer 11/29/2022 Vitamin D deficiency 11/29/2022 Resolved Problems Problem Noted Date Diagnosed Date Resolved Date Essential hypertension 11/29/202210/10 Postprocedural male urethral stricture 08/22/2018 03/15/2023 Slow urinary stream 08/22/2018 03/15/20 [id number] kidney injury 04/13/2018 03/15/2023 Severe sepsis 04/13/2018 03/15/2023 History of prostate surgery 04/12/2018 03/15/2023 Septicemia 04/12/2018 03/15/2023 Severe dehydration 04/12/2018 Rising PSA level 11/08/2017 03/15/2023 Encounters Date Type Department Care Team Description 10/15/2024 Clinisync Result Encounter [facility] Unsolicited Provider, Generic External Data 09/19/2024 Refill [facility] [address] [place] [address] No Miller, FLIGHT CONTROL MANAGER Anxiety; Mixed hyperlipidemia 08/28/2024 9:00 AM EDT Office Visit [facility] [address] [place] [address] No Miller, FLIGHT CONTROL MANAGER Prostate cancer (HCC) (Primary Dx); Crohn's disease of small intestine with other complication (HCC); Borderline hypertension 08/28/2024 Bamboo flowsheet [facility] [address] [place] [address] No Mliler, FLIGHT CONTROL MANAGER 08/28/2024 Travel 08/21/2024 Travel 08/03/2024 Refill [facility] [address] [place] [address] No Miller, FLIGHT CONTROL MANAGER Pain from Last 3 Months Immunizations Immunization Administration Dates Next Due Influenza, High Dose Seasona l, Preservative Free 02/19/2024 Influenza, High-dose Seasona l, Quadrivalent, Preservative Free 02/22/2023 Influenza, Unspecified 02/23/2022,2020,03/16/2020,03/18,04/14/2018,02/23/2017,12/28/2015 ,04/28/2015 Influenza, injectable, quadrivalent 02/23/2017,0 12/28/2015 Influenza, injectable, quadr ivalent, preservative free 02/23/2022,03/16/2020,03/18/2019,04/14,02/23/2017,12/28/2015,04/28/2015 Influenza, recombinant, quad rivalent, injectable, preservative free 03/26/2021 Pfizer SARS-CoV-2 Vaccinatio n 5-11 y.o. 07/23/2020,06/25/2020 Pneumococcal Polysaccharide PPSV23 02/23/2022 Tdap 11/01/2021,03/14/2010 Family History Medical History Relation Name Comments No Known Problems Daughter AAA Father Jarred Kearney Heart disease Father Jarred Kearney Hypertension Father Jarred Kearney Kidney failure Father Jarred Kearney at ge 57 Father Jarred Kearney Colon cancer Father's Brother 2brothers Colon cancer Father's Sister 2 aunts Arthritis Mother Faith Kearney Hypertension Mother Faith Kearney Kidney failure Mother Faith Kearney Peripheral vascular disease Mother Faith Kearney carotid disease Mother Faith Kearney Colon cancer Other 1 Spouse Hyperlipidemia Other 2 Peripheral vascular disease Other 2 No Known Problems Sister No Known Problems Son Relation Name Status Comments Daughter Alive Father Jarred Kearney Father's Brother 2brothers Father's Sister 2 aunts Maternal Grandfather Maternal Grandmother Mother Faith Kearney Other 1 Spouse Other 2 Paternal Grandfather Paternal Grandmother Sister Alive x3 Son Alive Social History Tobacco Use Types Packs/Day Years [...] declined 08/21/2024 How often do you attend mormon or shinto serv ices? Patient declined 08/21/2024 Do you belong to any clubs o r organizations such as mormon groups, unions, fraternal or athletic groups, or [...] Recorded Patient Health Questionnaire-2 Score 0 08/21/2024 [facility] - Occupational [...] place to sleep or slept in a mcc (including now)? No 02/21/2023 Housing Stability Vital Sign Answer Khai e Recorded In the last 12 months, was t here a time when you were not able to pay the mortgage or rent on time? No 08/21/2024 In the past 12 months, how m any times have you moved where you were living? 0 08/21/2024 At any time in the past 12 m [facility], were you homeless or living in a mcc (including now)? No 08/21/2024 Sex and Gender Information Value Date Recorded Sex Assigned at Male 02/21/2023 3:45 PM EST Legal Sex Male 6:34 PM EDT Gender Identity Male 02/21/2023 3:45 PM EST Sexual Orientation Straight 02/21/2023 3: 45 PM EST Last Filed Vital Signs Vital Sign Reading Time Taken Comments Blood Pressure 140/78 08/28/2024 9:08 AM EDT Pulse 63 08/28/2024 9:08 AM EDT Temperature 36.3 C (97.3 F) 08/28/2024 9:08 AM EDT Respiratory Rate - - Oxygen Saturation 97% 08/28/2024 9:08 AM EDT Inhaled Oxygen Concentration - - Weight 76.2 kg (168 lb) 08/28/2024 9:08 AM EDT Height 172.7 cm (5' 8 ) 08/28/2024 9:08 AM EDT Body Mass Index 25.54 08/28/2024 9:08 AM EDT Plan of Treatment Upcoming Encounters Date Type Department Care Team (Late st Contact Info) Description 02/18/2025 11:20 AM EST Office Visit [facility] [address] [place] [phone] Vandana Banuelos MD, IBCLC [address] [place] [address] Health Maintenance Due Date Last Done Comments Pneumococcal Vaccine: 65+ Ye ars (2 of 2 - PCV) 02/23/2023 02/23/2022 Influenza Vaccine (#1) 2024 , 02/22/2023, 02/23/2022, Additional history exists Medicare Annual Wellness (AWV) 02/18/2025 02/19/2024 , 03/15/2023 Goals Goal Patient Goal Type Associated Problems Recent Progress Patient-Stated? Author Help patient manage antidepressant medication Care Plan Patient on antidepressant monitoring plan No Isabel Bella, real estate closing coordinator Procedure Name Priority Date/Time Associated Diagnosis Comments [facility] COMP METAB 2000 PNL SERPL Routine 10/15/2024 2:07 PM EDT [facility] PSA SERPL-MCNC Routine 10/15/2024 2 :07 PM EDT [facility] FOLATE SERPL-[facility] Routine 10/15/2024 2:07 PM EDT [facility] FERRITIN SERPL-MCNC Routine 10/15/2024 2:07 PM EDT [facility] VIT B12 SERPL-MCNC Routine 10/15/2024 2:07 PM EDT [facility] IRON+TIBC PNL SERPL Routine 10/15/2024 2:07 PM EDT [facility] CBC W AUTO DIFF BLD Routine 10/15/2024 2:07 PM EDT from Last 3 Months Results * [facility] VIT B12 SERPL-MCNC (10/15/2024 2:07 PM EDT) Pathologist [facility] VIT B12 SERPL-MCNC 385 232 - 1,245 pg/mL [facility] 10/15/2024 2:07 PM EDT 10/15/2024 10:39 PM EDT Narrative CLINISYNC - 10/16/2024 1:15 AM EDT Specimen Type: BLOOD SPECIMEN Ordering Facility: [facility] Address: [address] [place] [address] Original Ordering Provider: LINDEN MARTIN Generic External Data Provider SONNY mojica Result [facility] [address] [place] [phone] * [facility] PSA SERPL-MCNC (10/15/2024 2:07 PM EDT) [facility] PSA SERPL-MCNC <0.02 <2.60 ng/mL [facility] Comment:Total PSA test metho dology used is the Electrochemiluminescence Immunoassay by [facility]. Total PSA values by differing methodologies cannot be interchanged. 10/15/2024 2:07 PM EDT 10/15/2024 10:39 PM EDT Narrative CLINISYNC - 10/16/2024 3:49 AM EDT Specimen Type: BLOOD SPECIMEN Ordering Facility: [facility] Address: [address] [place], [place] [id number] Original Ordering Provider: LINDEN MARTIN Generic External Data Provider CLINISYNC F inal Result Performing Organization Address [facility] de Phone Number SONNY FARMER [address] [place] [address] * (ABNORMAL) [facility] IRON+TIBC PNL SERPL (10/15/2024 2:07 PM EDT) [facility] IRON SERPL-MCNC 41 41 - 186 ug/dL [facility] TIBC SERPL-MCNC 291 232 - 386 ug/dL [facility] IRON/TIBC SERPL-SRTO 14.1(L) 15.0 - 57.0 % [facility] 10/15/2024 2:07 PM EDT 10/15/2024 10:39 PM EDT Narrative CLINISYNC - 10/16/2024 12:53 AM EDT Specimen Type: BLOOD SPECIMEN Ordering Facility: [facility] Address: [address] [place] [address] Original Ordering Provider: LINDEN MARTIN Generic External Data Provider ARELISROSANC F inal Result Performing Organization Address [facility] de Phone Number SONNY FARMER [address] [place], [place] [phone] * [facility] FOLATE SERPL-MCNC (10/15/2024 2:07 PM EDT) [facility] FOLATE SERPL-MCNC >20.0 >4.7 ng/mL [facility] Comment: A result of > 20 ng/mL is not necessarily indicative of a pathologic or treatable condition: it reflects a limitation of the test methodology. Assay reference range: 4.8 to 24.2 ng/mL. Suitable for detection of folate deficiency. Reference: Folate III (Folate III) [package insert V 1.0 Swedish]. [facility], [place], [place]: February 2015. 10/15/2024 2:07 PM EDT 10/15/2024 10:39 PM EDT Narrative CLINISYNC - 10/16/2024 1:15 AM EDT Specimen Type: BLOOD SPECIMEN Ordering Facility: [facility] Address: [address] [place] [address] Original Ordering Provider: LINDEN MARTIN Generic External Data Provider CLINISYNC F inal Result Performing Organization Address [facility] Co de Phone Number SONNY FARMER [address] [place] [phone] * [facility] FERRITIN SERPL-MCNC (10/15/2024 2:07 PM EDT) Pathologist [facility] [place] [facility] FERRITIN SERPL-MCNC 37.1 30.3 - 565.7 ng/mL [facility] 10/15/2024 2:07 PM EDT 10/15/2024 10:39 PM EDT Narrative CLINISYNC - 10/16/2024 1:15 AM EDT Specimen Type: BLOOD SPECIMEN Ordering Facility: [facility] Address: [address] [place] [address] Original Ordering Provider: LINDEN MARTIN Generic External Data Provider ARELISISYNC F inal Result Performing Organization Address [facility] de Phone Number SONNY FARMER [address] [address] * (ABNORMAL) [facility] CBC W AUTO DIFF BLD (10/15/2024 2:07 PM EDT) [facility] WBC # BLD AUTO 6.25 3.70 [...] PM EDT 10/15/2024 2:07 PM EDT Narrative SONNY - 10/15/2024 2:18 PM EDT Specimen Type: BLOOD SPECIMEN Ordering Facility: [facility] Address: [address] [place] [phone] Original Ordering Provider: LINDEN MARTIN us Generic External Data Provider SONNY F inapaul Result [facility] [address] [place] [address] * (ABNORMAL) [facility] COMP METAB 2000 PNL [...] 74 - 99 mg/dL [facility] Comment: The [place] Diabetes Association (ADA) provides guidance for cutoff [...] Standards of Medical Care in Diabetes 2016, [place] Diabetes Association. Diabetes Care. 2016.39(Suppl 1). [facility] [...] PM EDT 10/15/2024 10:39 PM EDT Narrative SONNY - 10/16/2024 3:50 AM EDT Specimen Type: BLOOD SPECIMEN Ordering Facility: [facility] Address: [address] [place] [address] Original Ordering Provider: LINDEN MARTIN us Generic External Data Provider SONNY mojica Result Performing Organization Address City/State/[facility] Co de Phone Number SONNY [facility] [address] [facility] [address] [place] [phone] from Last 3 Months Additional Health Concerns Active Problems Noted Date Diagnosed Date Patient on antidepressant monitoring plan 2023 Insurance MEDICARE AET Care Teams Oleo Hasher And Renderer Relationship Specialty Start Date End Date Sekou Willis DO [address] [place] [address] PCP - General Family Medicine 08/23/22 No Miller, FLIGHT CONTROL MANAGER [address] [place] [address] PCP - ACO Reach 04/17/24
--- NOTE | 2024-10-25 13:13 | ECG_ITS ---
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
--- NOTE | 2024-10-25 13:56 | PM.PRESUREVA ---
History of Present Illness History of Present Illness Chief complaint: uretheral stricture, prostate ca Narrative: Patient presents for presurgical testing. Please see HPI from Dr. Allen dated October 21, 2024. Review of Systems ROS Narrative Please see ROS from Dr. Allen dated October 21, 2024. [facility] Medical History (Updated 10/25/24 @ 13:58 by Zulema Miranda NP) Urethral stricture ?N35.919 - Unspecified urethral stricture, male, unspecified site (ICD-10) Prostate cancer ?C61 - Malignant neoplasm of prostate (ICD-10) Neck pain ?M54.2 - Cervicalgia (ICD-10) Arthritis ?M19.90 - Unspecified osteoarthritis, unspecified site (ICD-10) History of blood transfusion ?Z92.89 - Personal history of other medical treatment (ICD-10) Low iron ?E61.1 - Iron deficiency (ICD-10) Anxiety ?F41.9 - Anxiety disorder, unspecified (ICD-10) Snores ?R06.83 - Snoring (ICD-10) GERD (gastroesophageal reflux disease) ?K21.9 - Gastro-esophageal reflux disease without esophagitis (ICD-10) Crohn's disease ?K50.90 - Crohn's disease, unspecified, without complications (ICD-10) High cholesterol ?E78.00 - Pure hypercholesterolemia, unspecified (ICD-10) Hypertension ?I10 - Essential (primary) hypertension (ICD-10) Prediabetes ?R73.03 - Prediabetes (ICD-10) Ileostomy in place ?Z93.2 - Ileostomy status (ICD-10) Surgical History (Updated 10/25/24 @ 13:39 by Zulema Miranda NP) History of hydrocelectomy ?Z98.890 - Other specified postprocedural states (ICD-10) H/O dilation of urethra ?Z98.890 - Other specified postprocedural states (ICD-10) History of vasectomy ?Z98.52 - Vasectomy status (ICD-10) S/P cystoscopy ?Z98.890 - Other specified postprocedural states (ICD-10) S/P prostatectomy ?Z90.79 - Acquired absence of other genital organ(s) (ICD-10) History of colonoscopy ?Z98.890 - Other specified postprocedural states (ICD-10) History of esophagogastroduodenoscopy (EGD) ?Z98.890 - Other specified postprocedural states (ICD-10) Family History (Updated 10/25/24 @ 13:39 by Zulema Miranda NP) Other Family history of aneurysm Family history of cancer Family history of hypertension Family history of myocardial infarction Social History (Updated 10/25/24 @ 13:31 by Zulema Miranda NP) Within the past year, how often did you have a drink containing alcohol: monthly or less Smoking status: Former smoker Non-prescribed substance use: denies use Highest level of school completed/degree received: high school graduate Meds Home Medications and Allergies Home Medications ?Medication ?Instructions ?Recorded ?Confirmed ?Type aspirin 81 mg tablet,delayed 81 mg PO DAILY 10/25/24 10/25/24 History release (Adult Aspirin Regimen) atorvastatin 10 mg tablet 10 mg PO DAILY 10/25/24 10/25/24 History cholecalciferol (vitamin D3) 25 1,000 unit PO DAILY 10/25/24 10/25/24 History mcg (1,000 unit) capsule citalopram 20 mg tablet 20 mg PO DAILY 10/25/24 10/25/24 History ferrous sulfate 325 mg (65 mg 325 mg PO DAILY 10/25/24 10/25/24 History iron) tablet (Feosol) magnesium 250 mg tablet 250 mg PO DAILY 10/25/24 10/25/24 History multivitamin (Daily Multi-Vitamin 1 tab PO DAILY 10/25/24 10/25/24 History tablet) omega 1-beg-lpa-fish oil 1,000 mg 1 cap PO DAILY 10/25/24 10/25/24 History (120 mg-180 mg) capsule (Fish Oil) Allergies Allergy/AdvReac Type Severity Reaction Status Date / Time No Known Drug Allergies Allergy Verified 10/25/24 13:30 Exam Narrative Exam Narrative: Constitutional: Awake, alert, comfortable, well-appearing, nontoxic, interactive, vital signs as charted Head: Normocephalic, atraumatic Neck: Supple, normal appearance, normal range of motion, no meningeal signs, no lymphadenopathy Respiratory: No respiratory distress, breath sounds clear Cardiovascular: Regular rate and rhythm, strong and regular heart tones Abdomen: Nontender, ileostomy intact, soft, no CVA tenderness Musculoskeletal: Normal gait, no swelling or edema Skin: No rashes or induration, no lesions, only visible skin inspected Neuro: No neurological deficits, normal sensation Psychiatric: Oriented ?3, normal affect Assessment and Plan Assessment and Plan (1) Urethral stricture: Plan Cystoscopy with urethral dilation scheduled with Dr. Allen November 07, 2024.
[2024-10-25 14:12] LABS: INR 1.00; Partial Thromboplastin Time 24.9 sec (22.3-36.2); Prothrombin Time 10.6 sec (9.0-11.6)
[2024-10-25 14:33] LABS: Anion Gap 13.7; Blood Urea Nitrogen 18.0 mg/dL (7.0-18.0); Calcium 9.1 mg/dL (8.5-10.1); Carbon Dioxide 26.9 mmol/L (21.0-32.0); Chloride 108 mmol/L (98-107); Estimated GFR (African America >60 (>=60 mL/min/1.73m^2); Estimated GFR (Non-African Ame >60 (>=60 mL/min/1.73m^2); Glucose 180 mg/dL (74-106); Potassium 3.6 mmol/L (3.5-5.1); Sodium 145 mmol/L (136-145)
[2024-10-25 14:45] LABS: Hematocrit 41.0 % (42.0-54.0); Hemoglobin 13.7 g/dL (14.0-18.0); Immature Granulocytes Abs Auto 0.05 10^3/uL (0.00-0.03); Immature Granulocytes Pct Auto 0.7 % (0.0-0.5); Lymphocytes Absolute Auto 1.2 10^3/uL (1.2-3.8); Mean Corpuscular HGB Conc 33.4 g/dL (29.9-35.2); Mean Corpuscular Hemoglobin 28.2 pg (25.9-34.0); Mean Corpuscular Volume 84.4 fL (80.0-94.0); Platelet Count 222 10^3/uL (150-450); Red Blood Count 4.86 10^6/uL (4.70-6.10); White Blood Count 6.7 10^3/uL (4.0-11.0)
== END 2024-10-25 13:06 | disposition home or self-care (01) ==
LOC: PST 13:05
PROVIDERS: Visit Provider Urology
DX: Z01.810 Encounter for preprocedural cardiovascular examination (principal); Z01.812 Encounter for preprocedural laboratory examination; Z01.818 Encounter for other preprocedural examination; N13.5 Crossing vessel and stricture of ureter without hydronephrosis; Z85.46 Personal history of malignant neoplasm of prostate
CPT/HCPCS: 80048; 85025; 85610; 85730; 93005; G0463

== ENCOUNTER 2024-11-07 09:59 | Day surgery (SDC) | payer MEDICARE, OTHER, SELFPAY ==
[2024-10-25 13:54] VITALS: BP 147/80; PULSE 81; TEMP 36.3; O2SAT 97; BMI 26.5
--- OUTSIDE RECORDS SUMMARY | 2024-11-04 09:30 | XMS_ITS | Encounter Summary ---
Author Organization [facility] Address [address], [address] [place] [address] Care Team Providers Care Buffing Wheel Operator Name Role Phone Noemi diana MILLER - INVESTIGATOR Primary Care Provider [phone] Reason for Visit * Reason Comments Cardiac Clearance New Patient Encounter Details Date Type Department Care Team (Latest Contact Info) Description 11/04/2024 9:30 AM EDT Office Visit Y[facility] Dulite Machine Bluer [address] [place] [id number] Sekou Hall DO [address] [place] [address] Preoperative cardiovascular examination (Primary Dx); Essential hypertension; Family history of premature coronary artery disease; Mixed hyperlipidemia Social History Tobacco Use Types Packs/Day Years [...] on file documented as of this encounter Last Filed Vital Signs Vital Sign Reading Time Taken Comments Blood Pressure 160/99 11/04/2024 9:28 AM EDT Pulse 67 11/04/2024 9:28 AM EDT Temperature - - Respiratory Rate - - Oxygen Saturation 96% 11/04/2024 9:28 AM EDT Inhaled Oxygen Concentration - - Weight 76.7 kg (169 lb) 11/04/2024 9:28 AM EDT Height - - Body Mass Index 26.47 04/12/2018 7:27 PM EST documented in this encounter Patient Instructions * Patient Instructions* Haylee Harrington - 11/04/2024 9:52 AM EDT Will be Low Risk for surgery Follow up as needed documented in this encounter Progress Notes * Sekou Hall DO - 11/04/2024 9:30 AM EDT Images from the original note were not included. [facility], [place] Hall DO, FACC, FCCP, FACOI Patient: Yehuda Kearney : 1955 Date of Visit: 11/04/24 REASON FOR VISIT / CONSULTATION: Chief Complaint Patient presents with Cardiac Clearance New Patient History of Present Illness: Dear Noemi Chu APRN - INVESTIGATOR I had the pleasure of seeing Yehuda Kearney today. He is a 69 y.o. Male with a history of prostatecancer status post prostatectomy 2018, colitis, Crohn's disease, hyperlipidemia, hypertension and arthritis today for cardio vascular preoperative examination. He is pending urethral dilatation in 3 days and prior to that they did get an EKG that was read as abnormal with moderate ST depression, sinus with borderline left axis deviation. Prior to this recently he did undergo both upper endoscopy and colonoscopy without difficulty. He denies any prior cardiac history. He has no cardiac symptoms.He did have a normal EKG in February 2023 which on review was similar to 2018 and not much different than recent EKG October 25, 2024. He states he had a stress test a few years ago that was normal. His father age 58 of kidney complications of aortic aneurysm repair. He apparently had coronary artery disease and ID prior to that. He also smoked heavily. Yehuda states he smoked for 20 years at approximately 3 cigarettes/day but quit 20 years ago. He denies any current or recent chest pain, paroxysmal nocturnal dyspnea, orthopnea, syncope, near syncope, palpitations, lightheadedness, or peripheral edema. PAST MEDICAL HISTORY: Past Medical History: Diagnosis Date Arthritis Cancer (HCC) Prostate-Prostectomy Colitis Crohn's disease (HCC) Hyperlipidemia Hypertension CURRENT ALLERGIES: No Known Allergies REVIEW OF SYSTEMS: Review of Systems - History obtained from chart review and the patient General ROS: negative Respiratory ROS: no cough, shortness of breath, or wheezing Cardiovascular ROS: no chest pain or dyspnea on exertion Past Surgical History: Procedure Laterality Date APPENDECTOMY HYDROCELE EXCISION ILEOSTOMY OR JEJUNOSTOMY 1995 PROSTATE SURGERY 03/2018 [facility]/Dr.Jihad Garcia SMALL INTESTINE SURGERY Social History Socioeconomic History Marital status: Tobacco Use Smoking status: Former Current packs/day: 0.00 Types: Cigarettes Quit date: 03/20/2006 Years since quittin.6 Smokeless tobacco: Never Vaping Use Vaping status: Never Used Substance and Sexual Activity Alcohol use: No Social Drivers of Health Financial Resource Strain: Low Risk (02/21/2023) Received from [facility] Overall Financial Resource Strain (CARDIA) Difficulty of Paying Living Expenses: Not hard at all Food Insecurity: No Food Insecurity (02/21/2023) Received from [facility] Hunger Vital Sign Worried About Running Out of Food in the Last Year: Never true Ran Out of Food in the Last Year: Never true Transportation Needs: No Transportation Needs (02/21/2023) Received from [facility] PRAPARE - Transportation Lack of Transportation (Medical): No Lack of Transportation (Non-Medical): No Physical Activity: Insufficiently Active (02/21/2023) Received from [facility] Exercise Vital Sign Days of Exercise per Week: 2 days Minutes of Exercise per Session: 30 min Stress: No Stress Concern Present (02/21/2023) Received from [facility] [place] of Occupational Health - Occupational Stress Questionnaire Feeling of Stress : Not at all Social Connections: Moderately Isolated (02/21/2023) Received from [facility] Social Connection and Isolation Panel [NHANES] Frequency of Communication with Friends and Family: Never Frequency of Social Gatherings with Friends and Family: Once a week Attends Bahai Services: More than 4 times per year Active Member of Clubs or Organizations: No Attends Club or Organization Meetings: Never Marital Status: Intimate Partner Violence: Not At Risk (02/21/2023) Received from [facility] Humiliation, Afraid, Rape, and Kick questionnaire Fear of Current or Ex-Partner: No Emotionally Abused: No Physically Abused: No Sexually Abused: No Housing Stability: Low Risk (02/21/2023) Received from [facility] Housing Stability Vital Sign In the last 12 months, was there a time when you were not able to pay the mortgage or rent on time?: No In the last 12 months, how many places have you lived?: 1 In the last 12 months, was there a time when you did not have a steady place to sleep or slept in ashelter (including now)?: No CURRENT MEDICATIONS: Current Outpatient Medications Medication Sig Dispense Refill [place]-3 Fatty Acids (FISH OIL) 1000 MG CAPS Take 3,000 mg by mouth daily aspirin 81 MG tablet Take 81 mg by mouth daily atorvastatin (LIPITOR) 10 MG tablet Take 10 mg by mouth daily magnesium gluconate (MAGONATE) 500 MG tablet Take 250 mg by mouth daily citalopram (CELEXA) 10 MG tablet Take 10 mg by mouth daily Multiple Vitamins-Minerals (THERAPEUTIC MULTIVITAMIN-MINERALS) tablet Take 1 tablet by mouth daily. No current facility-administered medications for this visit. FAMILY HISTORY: Family History Problem Relation Age of Onset Heart Disease Father Physical Examination: BP (!) 160/99 Pulse 67 Wt 76.7 kg (169 lb) SpO2 96% BMI 26.47 kg/m?? Body mass index is 26.47 kg/m??. Constitutional: He is oriented to person, place, and time. He appears well- developed and well-nourished. In no acute distress. HEENT: Normocephalic and atraumatic.No JVD present. Carotid bruit is not present. No mass and no thyromegaly present. No lymphadenopathy present. Cardiovascular: Normal rate, regular rhythm, Exam reveals normal heart sounds. Normal S1 and S2, NoS3, No S4. no gallop and no friction rubs. No murmur was heard.. Pulmonary/Chest: Effort normal and breath sounds normal. No respiratory distress. He has no wheezes, rhonchi or rales. Abdominal: Soft, non-tender. Bowel sounds and aorta are normal. He exhibits no organomegaly, mass or bruit. Extremities: Trace. No cyanosis or clubbing. 2+ radial and carotid pulses. Distal extremity pulses:2+ bilaterally. Neurological: He is alert and oriented to person, place, and time. No evidence of gross cranial nerve deficit. Coordination appeared normal. Skin: Skin is warm and dry. There is no rash or diaphoresis. Psychiatric: He has a normal mood and affect. His speech is normal and behavior is normal. No results found for this or any previous visit. No results found for this or any previous visit (from the past 4464 hours). MOST RECENT LABS ON RECORD: TSH Date Value Ref Range Status 03/16/2023 1.06 0.30 - 5.00 uIU/mL Final Lab Results Component Value Date WBC 6.8 03/16/2023 HGB 12.2 (L) 03/16/2023 HCT 38.8 (L) 03/16/2023 PLT 264 03/16/2023 CHOL 188 03/16/2023 TRIG 240 (H) 03/16/2023 HDL 40 (L) 03/16/2023 LDL 100 03/16/2023 ALT 22 03/16/2023 AST 23 03/16/2023 NA 136 03/16/2023 K 4.4 03/16/2023 CL 103 03/16/2023 CREATININE 1.1 03/16/2023 BUN 18 03/16/2023 CO2 24 03/16/2023 TSH 1.06 03/16/2023 PSA 7.0 (H) 05/11/2015 LABA1C 5.9 03/16/2023 EKG 10/25/2024 [facility] Sinus rhythm 71 bpm Borderline left axis deviation Moderate ST depression (0.05 mV) No prior EKG ASSESSMENT: Assessment & Plan Preoperative cardiovascular examination Low cardiac risk for pending surgery No symptoms with usual activity including push mower, daily walking to work and any other activity approximately 5-8 METS EKG with mild nonspecific ST-T abnormalities and no marked changes from 2022 or 2017 Normal stress test in the past and will not repeat as he has no cardiac symptoms Tolerated recent upper and lower endoscopy Essential hypertension -Continue to monitor with goal of 130/80 -Antihypertensive agent, lisinopril stopped over a year ago due to some intermittent hypotension and with weight gain BP starting to increase again - Recheck at home if it stays consistently above 130/80 will need to reinstitute antihypertensive agent - He currently has fairly robust sodium intake and did review the need to cut back to 2000 mg of sodium per day as well as exercise and weight loss Family history of premature coronary artery disease Father possibly with CAD in his 50s as well as aortic aneurysm but was heavy smoker Mixed hyperlipidemia Continue to monitor with LDL currently reasonable at 100 but elevated triglyceride at 240 Low-cholesterol low-fat diet with exercise Continue atorvastatin 10 mg daily may need to increase this to 20 mg to help with hypertriglyceridemia The 10-year ASCVD risk score (Margo HERNANDEZ, et al., 2019) is: 22.6% Values used to calculate the score: Age: 69 years Sex: Male Is Non- : No Diabetic: No Tobacco smoker: No Systolic Blood Pressure: 160 mmHg Is BP treated: No HDL Cholesterol: 40 mg/dL Total Cholesterol: 188 mg/dL DISCUSSION / PLAN: We had a long discussion regarding his risk factors and EKG findings. His EKG shows some nonspecific ST-T abnormalities which are essentially unchanged from prior EKGs in 2022 in 2018. He also did have a normal stress test in the past and has no cardiac symptoms. He tolerated upper and lower endoscopy recently without difficulty and is unlimited in his activity at home. He would be a low cardiac risk for pending surgery this week. He should otherwise continue risk factor modification and start to recheck his blood pressure againsince that is starting to creep up over the last year possibly related to being more sedentary and weight gain. He also has a fondness for potato chips and I did review sodium restriction in detail along with exercise and weight loss. He requires no further cardiac testing at this time however we will be happy to see him in the future should the need arise. He is also a [employer] fan and enjoyed talking about this with him. In the meantime, I encouraged Yehuda Kearney to continue to take all other medications as directedfrom prior. FOLLOW UP: No follow-ups on file. I told Yehuda Kearney to call my office if He had any changes or concerns from a cardiac standpoint. I asked Him to No follow-ups on file. . However, I would be happy to see Him sooner should the need arise. Thank you for allowing me the privilege of participating in the care of your patient. Please do nothesitate to contact me if there are any further questions. Sincerely, Sekou Hall, DO, FACC, FACOI, FCCP [facility] [place], [facility] [address] [place] [address] , * Haylee Harrington - 11/04/2024 9:[address] Hall for new pt And cardiac clearance Dr. 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 Non smoker -quit 20 yrs ago Will be Low Risk for surgery Follow up as needed documented in this encounter Plan of Treatment Not on file documented as of this encounter Visit Diagnoses Diagnosis Preoperative cardiovascular examination- Primary Pre-operative cardiovascular examination Essential hypertension Unspecified essential hypertension Family history of premature coronary artery disease Family history of ischemic heart disease Mixed hyperlipidemia documented in this encounter Care Teams Buffing Wheel Operator Relationship Specialty Start Date End Date Noemi Chu APRN - INVESTIGATOR PCP - General Nurse Practitioner 04/12/18 documented as of this encounter
--- OUTSIDE RECORDS SUMMARY | 2024-11-07 10:01 | XMS_ITS ---
Author Organization 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 stricture 9 Crohn's disease with complication 02/02/2018 Overview (02/02/2018): Added automatically from request for surgery [id number] Hypertension 02/02/2018 Overview (02/02/2018): Added automatically from request for surgery [id number] Malignant neoplasm of prostate 02/02/2018 Overview (02/02/2018): Added automatically from request for surgery [id number] HTN (hypertension) 11/10/2017 Hypercholesteremia 11/10/2017 Crohn disease 11/10/2017 Overview (11/10/2017): s/p colectomy 1995, well controlled Rising PSA level 11/08/2017 Hyperlipidemia Current Treatment and Therapy Plans AMB LEUPROLIDE 45 D1 - Q175D* Plan Start Date:04/19/2024 Plan Provider:Murali Christie MD Linked Problems Malignant neoplasm of prosta te (HCC) Treatment Medications leuprolide (ELIGARD) Past Treatment and Therapy Plans No past plan information found. Resolved Problems Problem Noted Date Diagnosed Date Resolved Date Prostate CA 02/02/2018 06/08/2023 Overview (02/02/2018): Added automatically from request for surgery [id number] Prostate cancer 06/08/2023
--- OUTSIDE RECORDS SUMMARY | 2024-11-07 10:01 | XMS_ITS | Encounter Summary ---
Author Organization [facility] Address [address] [place] [address] Care Team Providers Care Surface Grinding Machine Hand Name Role Phone Noemi Chu APRN, NP Primary Care Provider [phone] Encounter Details Date Type Department Care Team (Late st Contact Info) Description 10/30/[address] [facility] [address] [place] [address] Provider, MD Doe Social History Tobacco Use Types Packs/Day Years [...] on file documented as of this encounter Procedures Procedure Name Priority Date/Time Associated Diagnosis Comments EKG 12-LEAD Routine 10/30/2024 9:43 AM EDT documented in this encounter Results * EKG 12 Lead (10/30/2024 9:43 AM EDT) us Historical Provider ECG ORDERABLES Final Res ult documented in this encounter Visit Diagnoses Not on filedocumented in this encounter Care Teams Surface Grinding Machine Hand Relationship Specialty Start Date End Date Noemi Chu APRN - NP PCP - General Nurse Practitioner 04/12/18 documented as of this encounter
--- OUTSIDE RECORDS SUMMARY | 2024-11-07 10:01 | XMS_ITS | Encounter Summary ---
Author Organization [facility] Address [address] [place] [address] Care Team Providers Care Roll Picker Name Role Phone Noemi Chu APRN - ZANE Primary Care Provider [phone] Encounter Details Date Type Department Care Team (Late st Contact Info) Description 10/30/2024 Abstract [facility] Chlorinator Operator [address] [place] [address] Sarah Braga APRN - SAMUEL [address] [place] [address] Social History Tobacco Use Types Packs/Day Years [...] on filedocumented in this encounter Care Teams Roll Picker Relationship Specialty Start Date End Date Noemi Chu APRN - NP PCP - General Nurse Practitioner 04/12/18 documented as of this encounter
--- OUTSIDE RECORDS SUMMARY | 2024-11-07 10:02 | XMS_ITS | Encounter Summary ---
Author Organization [facility] Address [address] [place] [address] Care Team Providers Care Newspaper Or Periodical Editor Name Role Phone Alba Sekou Connolly DO Primary Care Provider [phone] No [place] LEASE ADMINISTRATOR Unavailable [phone] Encounter Details Date Type Department Care Team (Late st Contact Info) Description 04/02/2024 Abstract [facility] [address] [place] [address] No [place], ZANE [address] [place] [address] Social History Tobacco Use Types Packs/Day [...] any clubs o r organizations such as mandaen groups, unions, fraternal or athletic groups, or [...] Recorded Patient Health Questionnaire-2 Score 0 02/15/2024 [facility] of Occupat ional Health - Occupational Stress [...] Visit [facility] [address] [place] [phone] Vandana Banuelos MD, IBCLC [address] [place] [address] documented as of this encounter [...] documented as of this encounter Care Teams Newspaper Or Periodical Editor Relationship Specialty Start Date End Date Sekou Willis DO [address] [place], [place] [id number] PCP - General Family Medicine 08/23/22 No [place] NP [address] [place] [address] PCP - ACO Reach 04/17/24 documented as of this encounter
--- OUTSIDE RECORDS SUMMARY | 2024-11-07 10:02 | XMS_ITS | Encounter Summary ---
Author Organization [facility] Address [address] [facility] [place] [address] Care Team Providers Care Chef De Partie Name Role Phone Noemi Chu SAMUEL Primary Care Provider [phone] Source Comments In the event this information is protected by the Federal Confidentiality of Alcohol and Drug AbusePatient Records regulations: The Federal rules restrict any use of the information to criminally investigate or prosecute any alcohol or drug abuse patient.[facility] Encounter Details Date Type Department Care Team (Late st Contact Info) Description 11/18/2018 Patient Msg Medical Records [address] [place] [address] Provider, Ccf Prescribed Patient Education Video(s) Social [...] AM EDT Office Visit Radiation Oncology [address] [place] [address] Mohsen Ackerman MD [address] [place] [address] 6 month follow up 04/14/2025 2:30 PM EST Office Visit [facility] [address] [place] [address] 6 month follow up with Pat hanson 04/14/2025 2:40 PM EST Visit (SP) Office Hematology/Oncology [address] [place] [address] Murali Christie MD [address] [place] [address] 6 month follow up with lab and Elijesse inj 04/14/2025 3:00 PM [facility] Hematology/Oncology [address] [place], [place] [id number] 6 month follow up with lab and Elisuzetted inj documented as of this encounter Visit Diagnoses Not on filedocumented in this encounter Care Teams Chef De Partie Relationship Specialty Start Date End Date Noemi Chu CNP [address] [place] [address] PCP - General Family Medicine 11/10/17 documented as of this encounter
--- OUTSIDE RECORDS SUMMARY | 2024-11-07 10:02 | XMS_ITS | Encounter Summary ---
Author Organization [facility] Address [address] [facility] [place] [address] Care Team Providers Care Agricultural Commodities Inspector Name Role Phone Alba, Sekou Connolly DO Primary Care Provider [phone] No [place] DIAL SCREW ASSEMBLER Unavailable [phone] Encounter Details Date Type Department Care Team (Late st Contact Info) Description 12/02/2022 Abstract [facility] [address] [place] [phone] Noemi Chu NP [address] [address] Social History Tobacco Use Types [...] Office Visit [facility] [address] [place] [phone] Vandana Banuelos MD, IBCLC [address] [place], [place] [phone] documented as of this encounter Visit Diagnoses Not on filedocumented in this encounter Care Teams Agricultural Commodities Inspector Relationship Specialty Start Date End Date Sekou Willis DO [address] [place] [address] PCP - General Family Medicine 08/23/22 No [place], ZANE [address] [place], [place] [id number] PCP - ACO Reach 04/17/24 documented as of this encounter
--- OUTSIDE RECORDS SUMMARY | 2024-11-07 10:02 | XMS_ITS | Encounter Summary ---
Author Organization [facility] Address [address] [place] [address] Care Team Providers Care Industrial Electrician Name Role Phone Noemi Chu SAMUEL Primary Care Provider [phone] Source Comments In the event this information is protected by the Federal Confidentiality of Alcohol and Drug AbusePatient Records regulations: The Federal rules restrict any use of the information to criminally investigate or prosecute any alcohol or drug abuse patient.[facility] Encounter Details Date Type Department Care Team (Late st Contact Info) Description 10/31/2019 Patient Msg Colorectal Surgery [address] [place] [address] Provider, Ccf CTE Results Social History Tobacco [...] Oncology [address] [facility] [place] [address] Mohsen Ackerman MD [address] [place] [address] 6 month follow up 04/14/2025 2:30 PM EST Office Visit [facility] Laboratory [address] [place] [address] 6 month follow up with Pat hanson 04/14/2025 2:40 PM EST Visit (SP) Office Hematology/Oncology [address] [facility] [place] [address] Murali Christie MD [facility] [place] [address] 6 month follow up with lab and Marlon inj 04/14/2025 3:00 PM [facility] Hematology/Oncology [address] [place] [address] 6 month follow up with lab and Marlon inj documented as of this encounter Visit Diagnoses Not on filedocumented in this encounter Care Teams Industrial Electrician Relationship Specialty Start Date End Date Noemi Chu CNP [address] [place] [address] PCP - General Family Medicine 11/10/17 documented as of this encounter
--- OUTSIDE RECORDS SUMMARY | 2024-11-07 10:02 | XMS_ITS | Encounter Summary ---
Author Organization [facility] Address [address] [place], [place] [address] Care Team Providers Care Technical Service Rep Name Role Phone Noemi Chu SAMUEL Primary Care Provider [phone] Source Comments In the event this information is protected by the Federal Confidentiality of Alcohol and Drug AbusePatient Records regulations: The Federal rules restrict any use of the information to criminally investigate or prosecute any alcohol or drug abuse patient.[facility] Encounter Details Date Type Department Care Team (Late st Contact [facility]) Description 03/28/2018 Abstract Urology [address] [address] Melida Gill RN [address] [address] Social History Tobacco Use Types Packs/Day Years [...] Assessment Author No 03/22/2018 3:03 PM Ibis aMx RN documented as of this encounter Mental [...] 11:45 AM EDT Office Visit Radiation Oncology [facility] [place] [place] [address] Mohsen Ackerman [place] [facility] [place] [address] 6 month follow up 04/14/2025 2:30 PM EST Office Visit [facility] [place] [address] 6 month follow up with Pat hanson 04/14/2025 2:40 PM EST Visit (SP) Office Hematology/Oncology [facility] [place] [address] Murali Christie MD [address] [place] [address] [place] [address] 6 month follow up with lab and Elijesse inj 04/14/2025 3:00 PM [facility] Hematology/Oncology [address] [facility] [place] [address] 6 month follow up with lab and Eligarrosales inj documented as of this encounter Visit Diagnoses Not on filedocumented in this encounter Care Teams Technical Service Rep Relationship Specialty Start Date End Date Noemi Chu CNP [address] [place] [address] PCP - General Family Medicine 11/10/17 documented as of this encounter
--- OUTSIDE RECORDS SUMMARY | 2024-11-07 10:02 | XMS_ITS | Encounter Summary ---
Author Organization [facility] Address [address] [place] [address] Care Team Providers Care Feeder Worker Power Unit Operator Name Role Phone Sekou Willis DO Primary Care Provider [phone] No Miller LACQUER COATER Unavailable [phone] Encounter Details Date Type Department Care Team (Late st Contact Info) Description 03/17/2023 Clinisync Result Encounter [facility] External Department Unsolicited No Miller, LACQUER COATER [address] [place] [id number] Social History Tobacco Use Types Packs/Day Years [...] How often do you attend chur or orthodoxy services? More than 4 times per year 02/21/2023 Do you belong to any clubs o r organizations such as shinto groups, unions, fraternal or athletic groups, or [...] Recorded Patient Health Questionnaire-2 Score 0 03/15/2023 [facility]ational Stress Questionnaire Answer Date Recorded [...] place to sleep or slept in a jail (including now)? No 02/21/2023 Sex and Gender [...] [facility] [address] [place] [address] Vandana Banuelos MD, IBCLC [address] [place] [address] documented as of this encounter [...] documented as of this encounter Care Teams Feeder Worker Power Unit Operator Relationship Specialty Start Date End Date Sekou Willis DO [address] [place] [address] PCP - General Family Medicine 08/23/22 No Miller, ZANE [address] [place] [address] PCP - ACO Reach 04/17/24 documented as of this encounter
--- OUTSIDE RECORDS SUMMARY | 2024-11-07 10:02 | XMS_ITS | Clinical Summary ---
Author Organization [facility] Address [address], [address] [place] [address] Care Team Providers Care Bed Rubber Name Role Phone Kike dianagrecia BHATT - DIAMOND DIE DRILLER Primary Care Provider [phone] Allergies No known active allergies Medications Multiple Vitamins-Minera ls (THERAPEUTIC MULTIVITAMIN-IL NERALS) tablet Take 1 tablet by mouth daily. Active atorvastatin (LIPITOR) 10 MG tablet Take 10 mg by mouth daily Active magnesium gluconate (MAGONATE) 500 MG tablet Take 250 mg by mouth daily Active citalopram (CELEXA) 10 MG tablet Take 10 mg by mouth daily Active [place]-3 Fatty Acids (FISH OIL) 1000 MG CAPS Take 3,000 mg by mouth daily Active aspirin 81 MG tablet Take 81 mg by mouth daily Active lisinopril-hydr ochlorothiazide (PRINZIDE;ZESTO RETIC) 10-12.5 MG per tablet Take 1 tablet by mouth daily. 11/05/19 Discontinu ed(Therapy completed) omeprazole (PRILOSEC) 20 MG capsule Take 20 mg by mouth daily. 11/05/19 Discontinu ed(LIST CLEANUP) meloxicam (MOBIC) 15 MG tablet Take 15 mg by mouth daily 11/05/19 Discontinu ed(LIST CLEANUP) Active Problems Problem Noted Date Diagnosed Date Prostate cancer 04/13/2018 Overview (04/13/2018): Prostatectomy 03/20/18 Dr. French Garcia Adenocarcinoma Andreas 4+3 Yfcnk-gb-jyxilay kidney injury 04/13/2018 Severe sepsis 04/13/2018 Arterial hypotension 04/12/2018 Septicemia 04/12/2018 Severe dehydration 04/12/2018 Hypotension 04/12/2018 History of prostate surgery 04/12/2018 Crohn's disease Resolved Problems Problem Noted Date Diagnosed Date Resolved Date UTI (urinary tract infection ) unable to determine if recent mckeon or procedure causitive 04/13/2018 05/13/2018 Encounters Date Type Department Care Team Description 11/04/2024 9:30 AM EDT Office Visit [facility] Deodorizer Operator [address] [place] [address] Sekou Hall DO Preoperative cardiovascular examination (Primary Dx); Essential hypertension; Family history of premature coronary artery disease; Mixed hyperlipidemia 10/30/2024 Orders Only [facility] [address] [place] [address] ProviderDoe MD 10/30/2024 Abstract [facility] Deodorizer Operator [address] [place] [address] Sarah Braga WATERWORKS OPERATOR - WASHING AND SCREENING PLANT SUPERVISOR 10/30/2024 Telephone [facility] Deodorizer Operator [address] [place] [address] Sarah Braga WATERWORKS OPERATOR - WASHING AND SCREENING PLANT SUPERVISOR OTHER from Last 3 Months Immunizations Immunization Administration [...] Pulse 67 11/04/2024 9:28 AM EDT Temperature 36.2 C (97.1 F) 04/14/2018 8:04 AM EST Respiratory Rate 16 04/14/2018 8:04 AM EST Oxygen Saturation 96% 11/04/2024 9:28 AM EDT Inhaled Oxygen Concentration - - Weight 76.7 kg (169 lb) 11/04/2024 9:28 AM EDT Height 170.2 cm (5' 7 ) 04/12/2018 7:27 PM EST Body Mass Index 26.47 04/12/2018 7:27 PM EST Plan of Treatment [...] Annual Wellness Visit (Medicare) 03/16/2023 COVID-19 Vaccine ( - season) 2023 06/28/2023, 03/26/2021, 07/23/2020, Additional history exists A1C test (Diabetic or Prediabetic) 03/16/2024 03/16/2023 GFR test (Diabetes, CKD 3-4, OR last GFR 15-59) 03/16/2024 03/16/2023, 10/24/2019, 04/14/2018, Additional history exists Lipids 03/16/2024 03/16/2023, 07/09/2011 Flu vaccine (#1) 11/15/2024 02/19/2024, 11/2022, 02/23/2022, Additional history exists DTaP/Tdap/Td vaccine (3 - [...] EKG 12-LEAD Routine 10/30/2024 9:43 AM EDT COMPREHENSIVE METABOLIC PANEL Routine 03/16/2023 12:03 PM EST LIPID PANEL Routine 03/16/2023 12:03 PM EST HEMOGLOBIN A1C Routine 03/16/2023 12:03 PM EST PSA, FREE Routine 05/11/2015 10:49 AM EST from Last 3 Months or Most Recently Relevant to Health Maintenance Results * EKG 12 Lead (10/30/2024 9:43 AM EDT) Historical Provider ECG ORDERABLES Final Res ult * Hemoglobin A1C (03/16/2023 12:03 PM EST) Hemoglobin A1C 5.9 4.0 - 6.0 % 03/16/2023 12:03 PM EST [employer] Estimated Avg Glucose 123 mg/dL 03/16/2023 12:03 PM EST [employer] Comment: The ADA and AACC recommend providing the estimated average glucose result to permit better patient understanding of their HBA1c result. 03/16/2023 12:0 3 PM EST 03/16/2023 12:04 PM EST No Miller WATERWORKS OPERATOR - DIAMOND DIE DRILLER CHEMISTRY ORDERABLE S Final Result [facility] [address], [place] [address] [phone] [employer] [address] [place] [address], [facility] [phone] * (ABNORMAL) Lipid Panel (03/16/2023 12:03 PM EST) Cholesterol 188 0 - 199 mg/dL 03/16/2023 12:03 PM EST [employer] Comment: Cholesterol Guidelines: <200 Desirable 200-240 Borderline >240 Undesirable HDL 40(L) >40 mg/dL 03/16/2023 12:03 PM EST [employer] Comment: HDL Guidelines: <40 Undesirable 40-59 Borderline >59 Desirable LDL Cholesterol 100 0 - 100 mg/dL 03/16/2023 12:03 PM [facility] Comment: LDL Guidelines: <100 Desirable 100-129 Near to/above Desirable 130-159 Borderline >159 Undesirable Direct (measured) LDL and calculated LDL are not interchangeable tests. Chol/HDL Ratio 5.0 03/16/2023 12:03 PM EST [employer] Triglycerides 240(H) 0 - 149 mg/dL 03/16/2023 12:03 PM [facility] [employer] Comment: Triglyceride Guidelines: <150 Desirable 150-199 Borderline 200-499 High >499 Very high Based on AHA Guidelines for fasting triglyceride, January 2012. VLDL 48 mg/dL 03/16/2023 12:03 PM [facility] [employer] 03/16/2023 12:0 3 PM EST 03/16/2023 12:04 PM EST us No Miller WATERWORKS OPERATOR - DIAMOND DIE DRILLER CHEMISTRY ORDERABLE S Final Result [facility] [address] [place] [address], [facility] [phone] [place] [address] [place] [id number], [facility] [phone] * (ABNORMAL) Comprehensive Metabolic Panel (03/16/2023 12:03 PM EST) Sodium 136 135 - 144 mmol/L 03/16/2023 12:03 PM [facility] Potassium 4.4 3.7 - 5.3 mmol/L 03/16/2023 12:03 PM [facility] Chloride 103 98 - 107 mmol/L 03/16/2023 12:03 PM [facility] CO2 24 20 - 31 mmol/L 03/16/2023 12:03 PM [facility] Anion Gap 9 9 - 17 mmol/L 03/16/2023 12:03 PM [facility] Glucose 104(H) 70 - 99 mg/dL 03/16/2023 12:03 PM [facility] BUN 18 8 - 23 mg/dL 03/16/2023 12:03 PM [facility] Creatinine 1.1 0.7 - 1.2 mg/dL 03/16/2023 12:03 PM [facility] Est, Glom Filt Rate >60 >60 mL/min/1.7 3m2 03/16/2023 12:03 PM [facility] Comment: These results are not [...] 16 9 - 20 03/16/2023 12:03 PM [facility] Calcium 9.5 8.6 - 10.4 mg/dL 03/16/2023 12:03 PM [facility] Total Protein 6.7 6.4 - 8.3 g/dL 03/16/2023 12:03 PM [facility] Albumin 3.8 3.5 - 5.2 g/dL 03/16/2023 12:03 PM [facility] Albumin/Globulin Ratio 1.3 1.0 - 2.5 03/16/2023 12:03 PM [facility] Total Bilirubin 0.3 0.3 - 1.2 mg/dL 03/16/2023 12:03 PM [facility] Alkaline Phosphatase 87 40 - 129 U/L 03/16/2023 12:03 PM EST [facility] ALT 22 5 - 41 U/L 03/16/2023 12:03 PM EST [facility] AST 23 <40 U/L 03/16/2023 12:03 PM EST [facility] 03/16/2023 12:0 3 PM EST 03/16/2023 12:04 PM EST No Miller WATERWORKS OPERATOR - DIAMOND DIE DRILLER CHEMISTRY ORDERABLE S Final Result Performing Organization Address [facility] de Phone Number [facility] [address], [place] [address] [phone] * (ABNORMAL) PSA, free (05/11/2015 10:49 AM EST) [facility] PSA 7.0(H) 0.0 - 4.0 ug/L 05/12/2015 11:45 AM EST [facility] Comment: Siemens Immulite 2000 immunometric chemiluminescent assay is used. Results obtained with different assay methods or instruments cannot be used interchangeably. PSA, Free 0.6 ug/L 05/12/2015 11:45 AM EST [facility] PSA, Free Pct 8.6 % 05/12/2015 11:45 AM EST [facility] Comment: In patients with total PSA [...] negative digital rectal examination findings. Performed at [address] [address] [phone] 05/11/2015 10:4 9 AM EST 05/11/2015 10:50 AM EST us Navneet Soto MD CHEMISTRY ORDERABLES Final Res ult Performing Organization Address City/[facility]/ZIP Co de Phone Number [facility] [address] [place] [address], [facility] [phone] [facility] from Last 3 Months or Most Recently Relevant to Health Maintenance Insurance MEDICARE AET[employer] SENIOR MEDICARE SUPP Advance Directives * Full Code (Latest Code Status on File) Date Activated Date Inactivated Comments 04/12/2018 7:23 PM 04/14/2018 5:41 PM Care Teams Bed Rubber Relationship Specialty Start Date End Date Noemi Chu APRN - ZANE PCP - General Nurse Practitioner 04/12/18
--- OUTSIDE RECORDS SUMMARY | 2024-11-07 10:02 | XMS_ITS | Encounter Summary ---
Author Organization [facility] Address [facility] [place] [address] Care Team Providers Care Outbound Telemarketer Name Role Phone Noemi Chu SAMUEL Primary Care Provider [phone] Source Comments In the event this information is protected by the Federal Confidentiality of Alcohol and Drug AbusePatient Records regulations: The Federal rules restrict any use of the information to criminally investigate or prosecute any alcohol or drug abuse patient.[facility] Encounter Details Date Type Department Care Team (Late st Contact Info) Description 12/26/2017 Patient Msg Angio [address] [place] [id number] Bernice, Joan, DANIEL pre procedure instructions Social [...] AM EDT Office Visit Radiation Oncology [address] [place] [address] Mohsen Ackerman MD [address] [place] [address] [place] [address] 6 month follow up 04/14/2025 2:30 PM EST Office Visit [facility] [address] [place] [address] [place] [address] 6 month follow up with lab and Eligard inj 04/14/2025 2:40 PM EST Visit (SP) Office Hematology/Oncology [address] [place] [address] [place] [address] Murali Christie MD [address] [place] [address] [place] [address] 6 month follow up with lab and Eligard inj 04/14/2025 3:00 PM EST Infusion Center Hematology/Oncology [address] [place] [address] [place] [address] 6 month follow up with lab and Eligard inj documented as of this encounter Visit Diagnoses Not on filedocumented in this encounter Care Teams Outbound Telemarketer Relationship Specialty Start Date End Date Noemi Chu CNP [address] [place] [address] PCP - General Family Medicine 11/10/17 documented as of this encounter
--- OUTSIDE RECORDS SUMMARY | 2024-11-07 10:02 | XMS_ITS | Clinical Summary ---
Author Organization [facility] Address [address] [place] [address] Care Team Providers Care Director Of Agriculture Name Role Phone Sekou Willis DO Primary Care Provider [phone] No Miller FISH HOUSEKEEPER Unavailable [phone] Allergies No known active allergies Medications ASPIRIN [...] 08/22/2018 03/15/2023 Slow urinary stream 08/22/2018 03/15/20 Ypdwm-wn-ggugqfb kidney injury 04/13/2018 03/15/2023 Severe sepsis 04/13/2018 03/15/2023 History of prostate surgery 04/12/2018 03/15/2023 Septicemia 04/12/2018 03/15/2023 Severe dehydration 04/12/2018 Rising PSA level 11/08/2017 03/15/2023 Encounters Date Type Department Care Team Description 10/15/2024 Clinisync Result Encounter [facility] External Department Unsolicited Provider, Generic External Data 09/19/2024 Refill [facility] [address] [place] [address] No Miller, ZANE Anxiety; Mixed hyperlipidemia 08/28/2024 9:00 AM EDT Office Visit [facility] [address] [place] [address] No Miller, FISH HOUSEKEEPER Prostate cancer (HCC) (Primary Dx); Crohn's disease of small intestine with other complication (HCC); Borderline hypertension 08/28/2024 Bamboo flowsheet [facility] [address] [place] [address] No Miller, FISH HOUSEKEEPER 08/28/2024 Travel 08/21/2024 Travel from Last 3 Months Immunizations Immunization Administration Dates Next Due Influenza, High Dose Seasona l, Preservative Free 02/19/2024 Influenza, High-dose Seasona l, Quadrivalent, Preservative Free 02/22/2023 Influenza, Unspecified 02/23/2022,2020,03/16/2020,03/18,04/14/2018,02/23/2017,12/28/2015 ,04/28/2015 Influenza, injectable, quadrivalent 02/23/2017,0 12/28/2015 Influenza, injectable, quadr ivalent, preservative free 02/23/2022,03/16/2020,03/18/2019,04/14,02/23/2017,12/28/2015,04/28/2015 Influenza, recombinant, quad rivalent, injectable, preservative free 03/26/2021 Shaser SARS-CoV-2 Vaccinatio n 5-11 y.o. 07/23/2020,06/25/2020 Pneumococcal [...] declined 08/21/2024 How often do you attend shinto or taoism serv ices? Patient declined 08/21/2024 Do you [...] Recorded Patient Health Questionnaire-2 Score 0 08/21/2024 [facility] Occupat ional Health - Occupational Stress [...] place to sleep or slept in a long-term (including now)? No 02/21/2023 Housing Stability Vital Sign Answer Khai e Recorded In the last 12 months, was t here a time when you were not able to pay the mortgage or rent on time? No 08/21/2024 In the past 12 months, how m any times have you moved where you were living? 0 08/21/2024 At any time in the past 12 m [facility], were you homeless or living in a long-term (including now)? No 08/21/2024 Sex and Gender [...] [facility] [address] [place] [address] Vandana Banuelos MD, IBCLC [address] [place], [place] [id number] Health Maintenance Due Date Last Done Comments [...] antidepressant monitoring plan No Isabel Bella RN Procedures Procedure Name Priority Date/Time Associated Diagnosis Comments [facility] COMP METAB 2000 PNL SERPL Routine 10/15/2024 2:07 PM EDT [facility] PSA SERPL-MCNC Routine 10/15/2024 2: 07 PM EDT [facility] FOLATE SERPL-[facility]NC Routine 10/15/2024 2:07 PM EDT [facility] FERRITIN SERPL-MCNC Routine 10/15/2024 2:07 PM EDT [facility] VIT B12 SERPL-MCNC Routine 10/15/2024 2:07 PM EDT [facility] IRON+TIBC PNL SERPL Routine 10/15/2024 2:07 PM EDT [facility] CBC W AUTO DIFF BLD Routine 10/15/2024 2:07 PM EDT from Last 3 Months Results * [facility] VIT B12 SERPL-MCNC (10/15/2024 2:07 PM EDT) [facility] VIT B12 SERPL-MCNC 385 232 - 1,245 pg/mL [facility] 10/15/2024 2:07 PM EDT 10/15/2024 10:39 PM EDT Narrative CLINISYNC - 10/16/2024 1:15 AM EDT Specimen Type: BLOOD SPECIMEN Ordering Facility: [facility] Address: [address] [place] [address] Original Ordering Provider: LINDEN MARTIN Generic External Data Provider CLINISYNC F inal Result Performing Organization Address [facility] de Phone Number CL[facility]NC [place] [address] [place], [place] [address] [place], [place] [id number] * [facility] PSA SERPL-MCNC (10/15/2024 2:07 PM EDT) [facility] PSA SERPL-MCNC <0.02 <2.60 ng/mL [facility] Comment:Total PSA test metho dology used is the Electrochemiluminescence Immunoassay by [facility]. Total PSA values by differing methodologies cannot be interchanged. 10/15/2024 2:07 PM EDT 10/15/2024 10:39 PM EDT Narrative CLINISYNC - 10/16/2024 3:49 AM EDT Specimen Type: BLOOD SPECIMEN Ordering Facility: [facility] Address: [address] [place] [address] Original Ordering Provider: LINDEN MARTIN Generic External Data Provider CLINISYNC F inal Result Performing Organization Address [facility]/State/ZIP Co de Phone Number REYNANC [facility] [address] [facility] [address] [address] * (ABNORMAL) [facility] IRON+TIBC PNL SERPL (10/15/2024 2:07 PM EDT) [facility] IRON SERPL-MCNC 41 41 - 186 ug/dL [facility] TIBC SERPL-MCNC 291 232 - 386 ug/dL [facility] IRON/TIBC SERPL-SRTO 14.1(L) 15.0 - 57.0 % [facility] 10/15/2024 2:07 PM EDT 10/15/2024 10:39 PM EDT Narrative CLINISYNC - 10/16/2024 12:53 AM EDT Specimen Type: BLOOD SPECIMEN Ordering Facility: [facility] Address: [address] [place] [address] Original Ordering Provider: LINDEN MARTIN Generic External Data Provider SONNY F inal Result SONNY ALMENDAREZ [address] [address] * [facility] FOLATE SERPL-MCNC (10/15/2024 2:07 PM EDT) [facility] FOLATE SERPL-MCNC >20.0 >4.7 ng/mL [facility] Comment: A result of > 20 ng/mL is not necessarily indicative of a pathologic or treatable condition: it reflects a limitation of the test methodology. Assay reference range: 4.8 to 24.2 ng/mL. Suitable for detection of folate deficiency. Reference: Folate III (Folate III) [package insert V 1.0 Divehi]. [facility], [place], [place]: February 2015. 10/15/2024 2:07 PM EDT 10/15/2024 10:39 PM EDT Narrative CLINISYCAROL - 10/16/2024 1:15 AM EDT Specimen Type: BLOOD SPECIMEN Ordering Facility: [facility] Address: [address] [place] [address] Original Ordering Provider: LINDEN MARTIN us Generic External Data Provider CLINROSANC F inal Result Performing Organization Address [facility]/ZIP Co de Phone Number SONNY FARMER [address] [address] * [facility] FERRITIN SERPL-MCNC (10/15/2024 2:07 PM EDT) [facility] FERRITIN SERPL-MCNC 37.1 30.3 - 565.7 ng/mL [facility] 10/15/2024 2:07 PM EDT 10/15/2024 10:39 PM EDT Narrative CLINISYNC - 10/16/2024 1:15 AM EDT Specimen Type: BLOOD SPECIMEN Ordering Facility: [facility] Address: [address] [place] [address] Original Ordering Provider: LINDEN MARTIN Generic External Data Provider ARELISZAKIA mojica Result Performing Organization Address [facility] Co de Phone Number SONNY FARMER [address] [address] * (ABNORMAL) [facility] CBC W AUTO DIFF BLD (10/15/2024 2:07 PM EDT) [facility] WBC # BLD AUTO 6.25 3.70 [...] PM EDT 10/15/2024 2:07 PM EDT Narrative CLINISYNC - 10/15/2024 2:18 PM EDT Specimen Type: BLOOD SPECIMEN Ordering Facility: [facility] Address: [address] [place] [address] Original Ordering Provider: LINDEN MARTIN us Generic External Data Provider CLINISYNC F inal Result CLINISYNC [facility] [address] [place] [address] * (ABNORMAL) [facility] COMP METAB 2000 PNL [...] 74 - 99 mg/dL [facility] Comment: The [place] Diabetes Association (ADA) provides guidance for cutoff [...] Standards of Medical Care in Diabetes 2016, [place] Diabetes Association. Diabetes Care. 2016.39(Suppl 1). [facility] [...] EDT Specimen Type: BLOOD SPECIMEN Ordering Facility: [facility] Address: [address] [place] [address] Original Ordering Provider: LINDEN MARTIN us Generic External Data Provider SONNY F inal Result CLINROSACAROL [facility] [address] [facility] [address] [place] [address] from Last 3 Months Additional Health Concerns Active Problems Noted Date Diagnosed Date Patient on antidepressant monitoring plan 2023 Insurance MEDICARE AET Care Teams Director Of Agriculture Relationship Specialty Start Date End Date Sekou Willis DO [address] [place] [address] PCP - General Family Medicine 5/9/23 No Miller, ZANE [address] [facility] [address] [place] [address] PCP - ACO Reach 04/17/24
--- OUTSIDE RECORDS SUMMARY | 2024-11-07 10:02 | XMS_ITS | Encounter Summary ---
Author Organization [facility] Address [address] [place] [address] Care Team Providers Care Hydrochloric Manufacturing Supervisor Name Role Phone Alba Sekou Connolly DO Primary Care Provider No Miller ROAD ROLLER ENGINEER Unavailable [phone] Encounter Details Date Type Department Care Team (Late st Contact Info) Description 02/22/2023 Abstract [facility] [address] [place] [address] No Miller, ROAD ROLLER ENGINEER [address] [place] [address] Social History Tobacco Use Types [...] How often do you attend chur or spiritism services? More than 4 times per year 02/21/2023 Do you belong to any clubs o r organizations such as anabaptism groups, unions, fraternal or athletic groups, or [...] and heating? Not hard at all 02/21/2023 [facility] - Occupational Stress [...] place to sleep or slept in a correction (including now)? No 02/21/2023 Sex and Gender [...] Visit [facility] [address] [place] [phone] Vandana Banuelos MD, IBCLC [address] [place] [address] documented as of this encounter Visit Diagnoses Not on filedocumented in this encounter Care Teams Hydrochloric Manufacturing Supervisor Relationship Specialty Start Date End Date Sekou Willis DO [address] [place] [address] PCP - General Family Medicine 08/23/22 No Miller, ROAD ROLLER ENGINEER [address] [facility] [address] [place], [place] [id number] PCP - ACO Reach 04/17/24 documented as of this encounter
--- OUTSIDE RECORDS SUMMARY | 2024-11-07 10:02 | XMS_ITS | Encounter Summary ---
Author Organization [facility] Address [address] [place] [address] Care Team Providers Care Trim Machine Operator Name Role Phone Noemi Chu SAMUEL Primary Care Provider [phone] Source Comments In the event this information is protected by the Federal Confidentiality of Alcohol and Drug AbusePatient Records regulations: The Federal rules restrict any use of the information to criminally investigate or prosecute any alcohol or drug abuse patient.[facility] Encounter Details Date Type Department Care Team (Late st Contact Info) Description 01/30/2018 Get Medical Advice Urology [address] [address] French Garcia MD [address] [facility] [address] [place] [address] RE: Medication Question (Not Renewal) [...] 11:45 AM EDT Office Visit Radiation Oncology [address] [place] [address] [place] [address] Mohsen Ackerman MD [address] [place] [address] [place] [address] 6 month follow up 04/14/2025 2:30 PM EST Office Visit [facility] Laboratory [address] [place] [address] [place] [address] 6 month follow up with lab and Eligard inj 04/14/2025 2:40 PM EST Visit (SP) Office Hematology/Oncology [address] [place] [address] [place] [address] Murali Christie MD [address] [place] [address] [place] [address] 6 month follow up with lab and Eligard inj 04/14/2025 3:00 PM EST Infusion Center Hematology/Oncology [address] [place] [address] [place] [address] 6 month follow up with lab and Eligard inj documented as of this encounter Visit Diagnoses Not on filedocumented in this encounter Care Teams Trim Machine Operator Relationship Specialty Start Date End Date Noemi Chu CNP [address] [place] [address] PCP - General Family Medicine 11/10/17 documented as of this encounter
--- OUTSIDE RECORDS SUMMARY | 2024-11-07 10:02 | XMS_ITS | Encounter Summary ---
Author Organization [facility] Address [address] [place], [place] [id number] Care Team Providers Care Revenue Accounting Manager Name Role Phone Noemi Chu SAMUEL Primary Care Provider [phone] Source Comments In the event this information is protected by the Federal Confidentiality of Alcohol and Drug AbusePatient Records regulations: The Federal rules restrict any use of the information to criminally investigate or prosecute any alcohol or drug abuse patient.[facility] Reason for Visit * Reason Comments Nm Pet Request Encounter Details Date Type Department Care Team (Late Contact Info) Description 03/06/2024 [facility]phone [facility] [address] [facility] [place] [place] [address] Mohsen Ackerman MD [address] [place] [address] [place] [address] Nm Pet Request Social History Tobacco Use [...] is lower risk 6 09/08/2022 Data from: https://www.neighborhoodatlas.medicine.[facility]/. Last address used for calculation [address] [facility] 09/08/2022 Sex and Gender Information Value Date [...] 03/06/2024 4:35 PM EST [facility] Comments for Inclusion Special Educator: Megan Wheeler the patient need anesthesia: NO Primary Insurance: Medicare B Effective Date: 04-17-22 Date of Initial PET: N/A Cancer Type: Prostate cancer Date of Subsequent PET scan: S1 Pending PET Scan Related to Transplant: N/A ABN Required: No Diagnosis: Malignant neoplasm of prostate (HCC) [C61] Initial/Subsequent: Subsequent Pathology: Prostate adenocarcinoma, initial PSA 11.67, biopsy [place] score 3 + 3 = 6 (grade [...] 2Arcs, VMAT, 10MV TOTAL: 6750cGy Additional Information/Imagin06-01-22 [id number] Initial:No Subsequent: Yes. Date of Last Image: 06-01-22 Scan: Positive Isotope used: [id number] Positive Scan Schedule as place of last (DOS) MC or Region Negative Scan Schedule at ANY [facility] site requested Isotope used: Region F-18 flotufolastat,18F flotufolastat Posluma MC GA68 [facility] PET 14850/LOCAMETZ (Gallium GA-68 Gozetotide) (6 mCi) A9800 - MC Posluma (Flotufolastat F18) (8mCi), A9608 - Region Auth#: no precert needed Date Range: NPI: Member ID: Medicare Site/Contact: Case/Ref#: Notes: Route to MC or Requested Scheduling Pool: P PET DIRECT SALES CONSULTANT , P [facility]([place]), P MEGAN EGG GRADER * Telephone Encounter - Zeina Patel - 03/06/2024 10:53 AM EST This form is used for MAIN CAMPUS APPOINTMENTS ONLY. Is this request for a Main [place] PET scan appointment? Yes: Correction Lieutenant: BALTAZAR Perla Requesting Person (Last Name, First Name): Dr. Ackerman Area Code + Phone/Pager: [phone] Who do we call to schedule this appointment? Other Contact: [facility] PET in [place], Route to Jumana Merle to schedule. Requesting Staff Dr. Ackerman Area Code + Phone/Pager: [phone] PET Orders (A delay in scheduling will [...] 11:45 AM EDT Office Visit Radiation Oncology [facility] [place] [address] Mohsen Ackerman MD [address] [place] [address] 6 month follow up 04/14/2025 2:30 PM EST Office Visit [facility] Laboratory [address] [place] [address] 6 month follow up with lab and Elisuzetted inj 04/14/2025 2:40 PM EST Visit (SP) Office Hematology/Oncology [address] [place] [address] Murali Christie MD [address] [place] [address] 6 month follow up with lab and Eligard inj 04/14/2025 3:00 PM EST [facility] Hematology/Oncology [address] [place] [address] 6 month follow up with lab and Marlon hanson documented as of this encounter Visit Diagnoses Not on filedocumented in this encounter Care Teams Revenue Accounting Manager Relationship Specialty Start Date End Date Noemi Chu, SAMUEL [address] [facility] [address] [place] [id number] PCP - General Family Medicine 11/10/17 documented as of this encounter
--- OUTSIDE RECORDS SUMMARY | 2024-11-07 10:02 | XMS_ITS | Encounter Summary ---
Author Organization [facility] Address [address] [facility] [place] [address] Care Team Providers Care Army Officer Name Role Phone Kike dianagrecia BHATT - CARPET LOOM FIXER Primary Care Provider [phone] Reason for Referral * Imaging (Routine) - [...] unspecified Procedures NM BONE SCAN WHOLE BODY IN BONE IMAGING, WHOLE BODY [id number] - IN BONE IMAGING, WHOLE BODY Navneet Soto MD Referral ID Status Reason Start Date Expiration Date Visits Re quested Visits Authorized [id number] Closed 06/08/2021 07/23/2021 2 2 Encounter Details Date Type Department Care Team (Latest Contact Info) Description 06/01/2021 Transcribe Orders [facility] Pre Access [address] [id number] Navneet Soto MD Benign prostatic hyperplasia with [...] suggest osseous metastatic disease. Navneet Soto MD [facility] [place] ORDER[place]LES Final Result documented in this [...] stream documented in this encounter Care Teams Army Officer Relationship Specialty Start Date End Date Noemi hCu APRN - ZANE PCP - General Nurse Practitioner 04/12/18 documented as of this encounter
--- OUTSIDE RECORDS SUMMARY | 2024-11-07 10:02 | XMS_ITS | Encounter Summary ---
Author Organization [facility] Address [address] [place] [address] Care Team Providers Care Benefits Administrator Name Role Phone Noemi Chu SAMUEL Primary Care Provider [phone] Source Comments In the event this information is protected by the Federal Confidentiality of Alcohol and Drug AbusePatient Records regulations: The Federal rules restrict any use of the information to criminally investigate or prosecute any alcohol or drug abuse patient.[facility] Encounter Details Date Type Department Care Team (Late st Contact Info) Description 2022 [place] [address] Provider, C[facility] Medicare Coverage of Physical Exams [...] N ot on file 05/10/2022 Data from: https://www.neighborhoodatlas.[facility]/. Last address used for calculation [address] [facility] 05/10/2022 Sex and Gender Information Value [...] Office Visit Radiation Oncology [address] [place] [address] Mohsen Ackerman MD [address] [place] [address] 6 month follow up 04/14/2025 2:30 PM EST Office Visit [facility] Laboratory [address] [place] [address] 6 month follow up with lab and Eligard inj 04/14/2025 2:40 PM EST Visit (SP) Office Hematology/Oncology [address] [place] [address] [place] [address] Murali Christie MD [address] [place] [address] [place] [address] 6 month follow up with lab and Eligard inj 04/14/2025 3:00 PM EST Infusion Center Hematology/Oncology [address] [facility] [place] [address] 6 month follow up with lab and Eligard inj documented as of this encounter Visit Diagnoses Not on filedocumented in this encounter Care Teams Benefits Administrator Relationship Specialty Start Date End Date Noemi Chu CNP [address] [place] [address] PCP - General Family Medicine 11/10/17 documented as of this encounter
--- OUTSIDE RECORDS SUMMARY | 2024-11-07 10:02 | XMS_ITS | Encounter Summary ---
Author Organization [facility] Address [address] [place] [address] Care Team Providers Care Cashier Associate Name Role Phone Sekou Willis DO Primary Care Provider [phone] No Miller ATHLETIC COORDINATOR Unavailable [phone] Encounter Details Date Type Department Care Team [...] any clubs o r organizations such as denominational groups, unions, fraternal or athletic groups, or [...] Recorded Patient Health Questionnaire-2 Score 0 02/15/2024 [facility] - Occupational Stress Questionnaire Answer Date [...] in a mcc (including now)? No 02/21/2023 Sex and Gender [...] Office Visit [facility] [address] [facility] [address] [place] [phone] Vandana Banuelos MD, IBCLC [address] [place] [address] documented as of this encounter [...] any questions regarding this interpretation, please call [phone]. If you are unable to reach us at the number above, please feel free to contact [facility]iology at [phone]. [id number]^[email or web address]^ACN Procedure Note Radiology, Radiologist, - 03/23/2024 * [...] any questions regarding this interpretation, please call [phone]. If you are unable to reach us at the number above, please feel free to contact [facility] at [phone]. [id number]^[id number]^SI^ACN us Generic External Data Provider [facility] Final Result documented in this encounter Visit Diagnoses Not on filedocumented in this encounter Additional Health Concerns Active Problems Noted Date Diagnosed Date Patient on antidepressant monitoring plan 2023 Assessment Noted Time PHQ-9 Depression Total Score: 0 03/15/20 23 1:00 PM EST documented as of this encounter Care Teams Cashier Associate Relationship Specialty Start Date End Date Sekou Willis DO [address] [place] [address] PCP - General Family Medicine 08/23/22 No Miller NP [address] [place] [address] PCP - ACO Reach 04/17/24 documented as of this encounter
--- OUTSIDE RECORDS SUMMARY | 2024-11-07 10:02 | XMS_ITS | Encounter Summary ---
Author Organization [facility] Address [facility] [place] [address] Care Team Providers Care Panel Gluer Name Role Phone Noemi Chu SAMUEL Primary Care Provider [phone] Source Comments In the event this information is protected by the Federal Confidentiality of Alcohol and Drug AbusePatient Records regulations: The Federal rules restrict any use of the information to criminally investigate or prosecute any alcohol or drug abuse patient.[facility] Encounter Details Date Type Department Care Team (Late st Contact Info) Description 12/23/2017 Patient Msg Medical Records [address] [place] [address] Provider, Ccf RE: Patient Registration Completed Social [...] AM EDT Office Visit Radiation Oncology [address] [facility] [place] [address] Mohsen Ackerman MD [address] [facility] [place] [address] 6 month follow up 04/14/2025 2:30 PM EST Office Visit [facility] Laboratory [address] [facility] [place] [address] 6 month follow up with lab and Eligard inj 04/14/2025 2:40 PM EST Visit (SP) Office Hematology/Oncology [address] [facility] [place] [address] Murali Christie MD [address] [facility] [place] [address] 6 month follow up with lab and Eligard inj 04/14/2025 3:00 PM EST [facility] Hematology/Oncology [address] [place] [address] [place] [address] 6 month follow up with lab and Eligard inj documented as of this encounter Visit Diagnoses Not on filedocumented in this encounter Care Teams Panel Gluer Relationship Specialty Start Date End Date Noemi Chu CNP [address] [place] [address] PCP - General Family Medicine 11/10/17 documented as of this encounter
--- OUTSIDE RECORDS SUMMARY | 2024-11-07 10:02 | XMS_ITS | Encounter Summary ---
Author Organization [facility] Address [facility] [place] [address] Care Team Providers Care Chief Engineer Name Role Phone Noemi Chu SAMUEL Primary Care Provider [phone] Source Comments In the event this information is protected by the Federal Confidentiality of Alcohol and Drug AbusePatient Records regulations: The Federal rules restrict any use of the information to criminally investigate or prosecute any alcohol or drug abuse patient.[facility] Encounter Details Date Type Department Care Team (Late Contact Info) Description 02/08/2018 Patient Msg Medical Records [address] [place] [address] Provider, Ccf RE: Patient Registration Completed Social [...] AM EDT Office Visit Radiation Oncology [address] [facility] [place] [address] Mohsen Ackerman MD [address] [facility] [address] 6 month follow up 04/14/2025 2:30 PM EST Office Visit [facility] Laboratory [address] [facility] [address] 6 month follow up with lab and Eligard inj 04/14/2025 2:40 PM EST Visit (SP) Office Hematology/Oncology [address] [facility] [address] Murali Christie MD [address] [facility] [address] 6 month follow up with lab and Eligard inj 04/14/2025 3:00 PM EST [facility] Hematology/Oncology [address] [place] [address] [place] [address] 6 month follow up with lab and Eligard inj documented as of this encounter Visit Diagnoses Not on filedocumented in this encounter Care Teams Chief Engineer Relationship Specialty Start Date End Date Noemi Chu CNP [address] [place] [address] PCP - General Family Medicine 11/10/17 documented as of this encounter
--- OUTSIDE RECORDS SUMMARY | 2024-11-07 10:02 | XMS_ITS | Encounter Summary ---
Author Organization [facility] Address [address] [place] [facility] [address] Care Team Providers Care Forestry Laborer Name Role Phone AlbaSekou sandoval Mohsen MARROQUIN Primary Care Provider [phone] No Miller UKRAINIAN FOLK ARTS INSTRUCTOR Unavailable [phone] Encounter Details Date Type Department Care Team (Late st Contact Info) Description 11/29/2022 Orders Only [facility] [address] [place] [address] Noemi Chu NP [address] [address] Social History Tobacco Use Types [...] [facility] [address] [place] [phone] Vandana Banuelos MD, IBCLC [address] [place], [place] [id number] documented as of this encounter Visit Diagnoses Not on filedocumented in this encounter Care Teams Forestry Laborer Relationship Specialty Start Date End Date Sekou Willis DO [address] [place] [address] PCP - General Family Medicine 08/23/22 oN Miller, ZANE [address] [place], [place] [phone] PCP - ACO Reach 04/17/24 documented as of this encounter
--- OUTSIDE RECORDS SUMMARY | 2024-11-07 10:02 | XMS_ITS | Encounter Summary ---
Author Organization [facility] Address [address] [place] [address] Care Team Providers Care High School Academic Coach Name Role Phone Noemi Chu SAMUEL Primary Care Provider [phone] Source Comments In the event this information is protected by the Federal Confidentiality of Alcohol and Drug AbusePatient Records regulations: The Federal rules restrict any use of the information to criminally investigate or prosecute any alcohol or drug abuse patient.[facility] Encounter Details Date Type Department Care Team (Late st Contact Info) Description 01/13/2018 Get Medical Advice Urology [address] [place] [address] Herve Zamora MD [address] [address] RE: Upcoming Appointment Question Social History Tobacco [...] AM EDT Office Visit Radiation Oncology [address] [facility] [place] [address] Mohsen Ackerman MD [address] [facility] [place] [address] 6 month follow up 04/14/2025 2:30 PM EST Office Visit [facility] Laboratory [address] [facility] [place] [address] 6 month follow up with lab and Eligard inj 04/14/2025 2:40 PM EST Visit (SP) Office Hematology/Oncology [address] [place] [address] [place] [address] Murali Christie MD [address] [facility] [place] [address] 6 month follow up with lab and Eligard inj 04/14/2025 3:00 PM EST [facility] Hematology/Oncology [address] [place] [address] [place] [address] 6 month follow up with lab and Eligard inj documented as of this encounter Visit Diagnoses Not on filedocumented in this encounter Care Teams High School Academic Coach Relationship Specialty Start Date End Date Noemi Chu CNP [address] [place] [address] PCP - General Family Medicine 11/10/17 documented as of this encounter
--- OUTSIDE RECORDS SUMMARY | 2024-11-07 10:02 | XMS_ITS | Clinical Summary ---
Author Organization [facility] Address [address] [place], [place] [id number] Care Team Providers Care It Application Architect Name Role Phone Noemi Chu Angeles BAKER Primary Care Provider [phone] Allergies No known active allergies Medications atorvastatin [...] mg by mouth once daily. Active omega 2-xur-mdz-fish oil 100-160-1,000 mg cap Take by mouth [...] (02/02/2018): Added automatically from request for surgery [id number] Hypertension 02/02/2018 Overview (02/02/2018): Added automatically from request for surgery [id number] Malignant neoplasm of prostate 02/02/2018 Overview (02/02/2018): Added automatically from request for surgery [id number] HTN (hypertension) 11/10/2017 Hypercholesteremia 11/10/2017 Crohn disease 11/10/2017 Overview (11/10/2017): s/p colectomy 1995, well controlled Rising PSA level 11/08/2017 Hyperlipidemia Resolved Problems Problem Noted Date Diagnosed Date Resolved Date Prostate CA 02/02/2018 06/08/2023 Overview (02/02/2018): Added automatically from request for surgery [id number] Prostate cancer 06/08/2023 Encounters Date Type Department Care Team Description 10/15/2024 3:00 PM EDT [facility] Hematology/Oncology [address] [place] [address] [place] [address] Malignant neoplasm of prostate (HCC) (Primary Dx) 10/15/2024 2:40 PM EDT Visit (SP) Office Hematology/Oncology [address] [place] [address] [place] [address] Murali Christie MD Malignant neoplasm of prostate (HCC) (Primary Dx); Iron deficiency anemia due to chronic blood loss; Crohn's disease of small and large intestines with complication (HCC); Esophagitis; Ulcer of ileum; Encounter for antineoplastic chemotherapy and immunotherapy 10/15/2024 Telephone [facility] [address] [place] [address] Murali Christie MD Results 10/15/2024 Travel 10/08/2024 Travel from Last 3 Months Immunizations Immunization Administration Dates Next Due COVID-19 original vaccine, a ge 5 yr - 11 yr, monovalent ([employer]) 07/23/2020,06/25/2020 COVID-19 original vaccine, f ull dose, [...] is lower risk 6 09/08/2022 Data from: https://www.neighborhoodatlas.[facility] Last address used for calculation [address] [place] [address] 09/08/2022 Sex and Gender Information Value Date [...] 11:45 AM EDT Office Visit Radiation Oncology [address] [place] [address] [place] [address] Mohsen Ackerman MD [address] [facility] [place] [address] 6 month follow up 04/14/2025 2:30 PM EST Office Visit [facility] [place] [address] 6 month follow up with lab and Marlon inj 04/14/2025 2:40 PM EST Visit (SP) Office Hematology/Oncology [address] [place] [address] Murali Christie MD [address] [place] [address] 6 month follow up with gonzalo and Marlon inj 04/14/2025 3:00 PM EST [facility] H[facility]ology/Oncology [facility] [place] [address] 6 month follow up with lab and Marlon hanson [facility] Maintenance Due Date Last Done Comments Abdominal [...] - 1,245 pg/mL 10/16/2024 1:15 AM EDT [facility] Blood BLOOD SPECIMEN / Unknown Venipuncture / Unknown 10/15/2024 2:07 PM EDT 10/15/2024 2:07 PM EDT us Murali Christie MD LABORATORY Final Result [facility] [address] [id number], [place] * PROSTATE-SPECIFIC ANTIGEN DIAGNOSTIC (10/15/2024 2:07 PM EDT) [facility] PSA <0.02 <2.60 ng/mL 10/16/2024 3:49 AM EDT [facility] Comment:Total PSA test metho dology used is the Electrochemiluminescence Immunoassay by [employer]. Total PSA values by differing methodologies cannot be interchanged. Blood BLOOD SPECIMEN / Unknown Venipuncture / Unknown 10/15/2024 2:07 PM EDT 10/15/2024 2:07 PM EDT us Murali Christie MD LABORATORY Final Result Performing Organization Address [facility]/ZIP Co de Phone Number [facility] [address] [place] [address], [place] * (ABNORMAL) IRON AND TIBC (10/15/2024 2:07 PM EDT) [facility] Iron 41 41 - 186 ug/dL 10/16/2024 12:53 AM EDT [facility] TIBC 291 232 - 386 ug/dL 10/16/2024 12:53 AM EDT [facility] Transferrin Saturation 14.1(L) 15.0 - 57.0 % 10/16/2024 12:53 AM EDT [facility] Blood BLOOD SPECIMEN / Unknown Venipuncture / Unknown 10/15/2024 2:07 PM EDT 10/15/2024 2:07 PM EDT us Murali Christie MD LABORATORY Final Result [facility] [address] [place] [address], [place] * FOLATE, SERUM (10/15/2024 2:07 PM EDT) [facility] Folate >20.0 >4.7 ng/mL 10/16/2024 1:15 AM EDT [facility] Comment: A result of > 20 ng/mL is not necessarily indicative of a pathologic or treatable condition: it reflects a limitation of the test methodology. Assay reference range: 4.8 to 24.2 ng/mL. Suitable for detection of folate deficiency. Reference: Folate III (Folate III) [package insert V 1.0 Citizen Of [place]]. [employer], [place], [place]: February 2015. Blood BLOOD SPECIMEN / Unknown Venipuncture / Unknown 10/15/2024 2:07 PM EDT 10/15/2024 2:07 PM EDT us Murali Christie MD LABORATORY Final Result Performing Organization Address [facility]/ZIP Co de Phone Number [facility] [place] [address], [place] * FERRITIN (10/15/2024 2:07 PM EDT) Ferritin 37.1 30.3 - 565.7 ng/mL 10/16/2024 1:15 AM EDT [facility] Blood BLOOD SPECIMEN / Unknown Venipuncture / Unknown 10/15/2024 2:07 PM EDT 10/15/2024 2:07 PM EDT us Murali Christie MD LABORATORY Final Result Performing Organization Address City/[facility]/ZIP Co de Phone Number [facility] [place] [address], [place] * (ABNORMAL) COMPREHENSIVE METABOLIC PANEL (10/15/2024 2:07 PM EDT) Protein, Total 6.6 6.3 - 8.0 g/dL 10/16/2024 3:50 AM EDT [facility] Albumin 3.8(L) 3.9 - 4.9 g/dL 10/16/2024 3:50 AM EDT [facility] Calcium, Total 9.8 8.5 - 10.2 mg/dL 10/16/2024 3:50 AM EDT [facility] Bilirubin, Total 0.2 0.2 - 1.3 mg/dL 10/16/2024 3:[address] [facility] Alkaline Phosphatase 72 38 - 113 U/L 10/16/2024 3:[address] [facility] AST 24 14 - 40 U/L 10/16/2024 3:[address] [facility] ALT 21 10 - 54 U/L 10/16/2024 3:[address] [facility] Glucose 90 74 - 99 mg/dL 10/16/2024 3:[address] [facility] Comment: The [place] Diabetes Association (ADA) provides guidance for cutoff [...] Standards of Medical Care in Diabetes 2016, [place] Diabetes Association. Diabetes Care. 2016.39(Suppl 1). BUN 14 9 - 24 mg/dL 10/16/2024 3:[address] [facility] Creatinine 1.03 0.73 - 1.22 mg/dL 10/16/2024 3:[address] [facility] Sodium 142 136 - 144 mmol/L 10/16/2024 3:[address] [facility] Potassium 4.4 3.7 - 5.1 mmol/L 10/16/2024 3:[address] [facility] Chloride 108(H) 98 - 107 mmol/L 10/16/2024 3:[address] [facility] CO2 24 22 - 30 mmol/L 10/16/2024 3:[address] [facility] Anion Gap 10 8 - 15 mmol/L 10/16/2024 3:[address] [facility] Estimated Glomerular Filtration Rate 80 >=60 mL/min/1.7 3m 10/16/2024 3:[address] [facility] Comment:Estimated Glomerular Filtration Rate (eGFR) [...] us Murali Christie MD LABORATORY Final Result [facility] [address] [facility][Note 3] Desk [address] [address], [place] * (ABNORMAL) COMPLETE BLOOD COUNT AND DIFFERENTIAL (10/15/2024 2:07 PM EDT) WBC 6.25 3.70 - 11.00 k/uL 10/15/2024 2:18 PM EDT [facility] RBC 4.89 4.20 - 6.00 m/uL 10/15/2024 2:18 PM EDT [facility] Hemoglobin 13.9 13.0 - 17.0 g/dL 10/15/2024 2:18 PM EDT [facility] Hematocrit 42.3 39.0 - 51.0 % 10/15/2024 2:18 PM EDT [facility] MCV 86.5 80.0 - 100.0 fL 10/15/2024 2:18 PM EDT [facility] MCH 28.4 26.0 - 34.0 pg 10/15/2024 2:18 PM EDT [facility] MCHC 32.9 30.5 - 36.0 g/dL 10/15/2024 2:18 PM EDT [facility] RDW-CV 15.5(H) 11.5 - 15.0 % 10/15/2024 2:18 PM EDT [facility] Platelet Count 211 150 - 400 k/uL 10/15/2024 2:18 PM EDT [facility] MPV 10.5 9.0 - 12.7 fL 10/15/2024 2:18 PM EDT [facility] Neutrophils % 66.4 % 10/15/2024 2:18 PM EDT [facility] Abs Neut 4.15 1.45 - 7.50 k/uL 10/15/2024 2:18 PM EDT [facility] Lymphocytes % 18.1 % 10/15/2024 2:18 PM EDT [facility] Abs Lymph 1.13 1.00 - 4.00 k/uL 10/15/2024 2:18 PM EDT [facility] Monocytes % 9.3 % 10/15/2024 2:18 PM EDT [facility] Abs Barrow 0.58 <0.87 k/uL 10/15/2024 2:18 PM EDT [facility] Eosinophils % 5.0 % 10/15/2024 2:18 PM EDT [facility] Abs Eosin 0.31 <0.46 k/uL 10/15/2024 2:18 PM EDT [facility] Basophils % 0.6 % 10/15/2024 2:18 PM EDT [facility] Abs Baso 0.04 <0.11 k/uL 10/15/2024 2:18 PM EDT [facility] Immature Granulocytes % 0.6 % 10/15/2024 2:18 PM EDT [facility] Abs Immature Gran 0.04 <0.10 k/uL 10/15/2024 2:18 PM EDT [facility] NRBC 0.0 /100 WBC 10/15/2024 2:18 PM EDT [facility] Absolute nRBC <0.01 <0.01 k/uL 10/15/2024 2:18 PM EDT [facility] Diff Type Auto 10/15/2024 2:18 PM EDT [facility] Blood BLOOD SPECIMEN / Unknown Venipuncture / Unknown 10/15/2024 2:07 PM EDT 10/15/2024 2:07 PM EDT Murali Christie MD LABORATORY Final Result [facility] [address] [place] [address] from Last 3 Months Insurance MEDICARE [employer] SUPPLEMENT Advance Directives Documents on File Type Date Recorded Patient Manager Recruiting Expl anation Advance Directive(s) 03/13/2018 4:49 PM Care Teams It Application Architect Relationship Specialty Start Date End Date Noemi Chu CNP [address] [place], [place] [phone] PCP - General Family Medicine 11/10/17
[2024-11-07 10:10] VITALS: BP 172/96; PULSE 75; TEMP 35.9; O2SAT 98; BMI 26.5
--- NOTE | 2024-11-07 10:30 | PC.NURSE ---
patient has a ileostomy. Patient states that stoma is red. Unable to visualize stoma d/t ileostomy bag not being see through. Patient denies any issues with stoma.
[2024-11-07] MEDS: CEFAZOLIN SODIUM 2 GM/50 ML D5W PREMIX IV (12:10)
--- NOTE | 2024-11-07 12:38 | PM.URSON ---
Urology Surgery Operative Note Operative Note Procedure Date: 11/07/24 Time Out Performed: yes Pre-op Diagnosis: Recurrent urethral stricture Post-op Diagnosis: same as pre-op Procedures performed: 1. Cystoscopy. 2. Urethral dilation of thick indurated urethral/anastomotic stricture. 3. Placement of 22 [place] catheter over a wire Anesthesia: MAC and local Primary Surgeon: Joshua Allen Complications: None Estimated blood loss (mL): 10 Findings: 1. Significant, thick, indurated stricture near the bulb of the urethra. Specimens: None Drains: 22 [place] catheter Indications for Procedures: This gentleman had a robotic assisted perineal radical prostatectomy in March 2018 at the [facility]. He had positive margins. He also had a urethral stricture after surgery that had to be dilated. He developed a recurrence at the resection site. He had to get subsequent external beam radiation. This has controlled his PSA and it has remained undetectable for the last few years since radiation. Since then, he has developed progressive difficulty with urination. He now presents for cystoscopy and urethral dilation of recurrent urethral stricture. He has signed an informed consent after risks were explained. Detailed description of Procedure: The patient was brought to the operating room and placed on the operating room table in the supine position. SCDs were placed on his lower extremities and turned on and functioning during the entire case. Timeout was done by all parties in the room. We all agreed upon the patient's identification and the planned procedures for this patient. MAC anesthesia was then administered. He was then repositioned into the modified dorsal lithotomy position. All pressure points were satisfactorily padded. Genitalia were sterilely prepped and draped in the usual fashion. I started by passing a 22 [place] Olympus cystoscope per urethra. As I was near the bulb of the urethra 1 could see and feel a significant hard narrowed area. This turned out to be the area of the anastomosis. I was able to pass a Glidewire through the scope and get it into the bladder. The scope was removed. I then used Ash sounds and dilated him from 20 [place] up to 30 [place]. This strictured area was very thick, indurated and difficult to dilate. After the dilation was completed I then passed the scope again and evaluated the area. He was now wide open. The previously strictured area was still very indurated presumably from the prior radiation and recurrent scarring. The bladder revealed no evidence of any tumors or stones or lesions. The wire was kept in the bladder and the scope was removed. I then slid a 22 [place] over the wire into the bladder and removed the wire. The catheter was irrigated with a Angella syringe numerous times to verify correct placement. 10 cc of fluid was placed in the balloon. It drained clear urine. The procedure was then terminated. He was then transferred to a [facility]encor hospital bed and wheeled to PACU in stable condition. Urinary Catheter Management Urinary Catheter Management Urethral: Cath placed during this visit: no
[2024-11-07 12:43] VITALS: BP 130/84; PULSE 89; TEMP 36.4; O2SAT 93
[2024-11-07 12:58] VITALS: BP 158/93; PULSE 75; O2SAT 94
[2024-11-07 13:28] VITALS: BP 157/97; PULSE 68; O2SAT 96
--- NOTE | 2024-11-07 13:55 | PC.NURSE ---
patient refuses large mckeon bag. Patient states that he gets up a lot in night to empty his ileostomy and will empty the leg bag at the same time.
== END 2024-11-07 13:45 | disposition home or self-care (01) ==
PROVIDERS: Visit Provider Urology
PROC: (CPT 52281; principal; 2024-11-07 11:00)
DX: N35.919 Unspecified urethral stricture, male, unspecified site (principal); K21.9 Gastro-esophageal reflux disease without esophagitis; E78.5 Hyperlipidemia, unspecified; M19.90 Unspecified osteoarthritis, unspecified site; E11.9 Type 2 diabetes mellitus without complications; I10 Essential (primary) hypertension; Z79.01 Long term (current) use of anticoagulants; Z87.891 Personal history of nicotine dependence; Z98.52 Vasectomy status; Z90.79 Acquired absence of other genital organ(s); Z85.46 Personal history of malignant neoplasm of prostate; K50.90 Crohn's disease, unspecified, without complications
CPT/HCPCS: 52281; 36415; J0690; J1100; J2250; J2405; J2704; J3010